=== PATIENT | female | born 1955 | race Caucasian/White ===

== ENCOUNTER → 2018-04-26 12:57 | Outpatient (CLI) | payer BC, SELFPAY | PROVIDERS: Family Provider Family Medicine; PCP Family Medicine; Referring Provider Family Medicine; Visit Provider Family Medicine | DX: I48.0 Paroxysmal atrial fibrillation (principal) | CPT/HCPCS: 93225; 93226 ==

== ENCOUNTER 2018-09-01 10:30 | Outpatient (RCR) | payer SELFPAY ==
[2018-05-18 15:04] VITALS: BMI 45.0
[2018-08-18 08:59] LABS: International Normalized Ratio 2.2; Prothrombin Time (Protime)PT. 24.1 SECONDS (11.7-14.9)
[2018-09-01 11:12] LABS: International Normalized Ratio 1.9; Prothrombin Time (Protime)PT. 21.4 SECONDS (11.7-14.9)
== END 2018-09-01 11:00 | disposition home or self-care (01) ==
LOC: LAB 10:30
PROVIDERS: Family Provider Family Medicine; PCP Family Medicine; Referring Provider Internal Medicine Cardiovascular Disease; Visit Provider Internal Medicine Cardiovascular Disease
DX: I48.0 Paroxysmal atrial fibrillation (principal); Z79.01 Long term (current) use of anticoagulants
CPT/HCPCS: 36415; 85610

== ENCOUNTER 2018-09-14 08:58 | Outpatient (RCR) | payer SELFPAY ==
[2018-05-18 15:04] VITALS: BMI 45.0
[2018-09-14 09:55] LABS: International Normalized Ratio 2.7; Prothrombin Time (Protime)PT. 28.5 SECONDS (11.7-14.9)
== END 2018-09-14 16:27 | disposition home or self-care (01) ==
LOC: LAB 08:58
PROVIDERS: Family Provider Family Medicine; PCP Family Medicine; Referring Provider Internal Medicine Cardiovascular Disease; Visit Provider Internal Medicine Cardiovascular Disease
DX: I48.0 Paroxysmal atrial fibrillation (principal); Z79.01 Long term (current) use of anticoagulants
CPT/HCPCS: 36415; 85610

== ENCOUNTER → 2018-10-06 | Outpatient (CLI) | payer SELFPAY ==
[2018-05-18 15:04] VITALS: BMI 45.0
[2018-10-06 09:37] LABS: International Normalized Ratio 2.6; Prothrombin Time (Protime)PT. 28.2 SECONDS (11.7-14.9)
== END | disposition home or self-care (01) ==
PROVIDERS: Family Provider Family Medicine; PCP Family Medicine; Referring Provider Internal Medicine Cardiovascular Disease; Visit Provider Internal Medicine Cardiovascular Disease
DX: I48.0 Paroxysmal atrial fibrillation (principal); Z79.01 Long term (current) use of anticoagulants
CPT/HCPCS: 36415; 85610

== ENCOUNTER 2018-11-03 09:50 | Outpatient (RCR) | payer MEDICARE, BC, SELFPAY ==
[2018-05-18 15:04] VITALS: BMI 45.0
[2018-11-03 10:19] LABS: International Normalized Ratio 2.6; Prothrombin Time (Protime)PT. 27.5 SECONDS (11.7-14.9)
== END 2018-11-03 13:00 | disposition home or self-care (01) ==
LOC: LAB 09:50
PROVIDERS: Family Provider Family Medicine; PCP Family Medicine; Referring Provider Internal Medicine Cardiovascular Disease; Visit Provider Internal Medicine Cardiovascular Disease
DX: I48.0 Paroxysmal atrial fibrillation (principal); Z79.01 Long term (current) use of anticoagulants
CPT/HCPCS: 36415; 85610

== ENCOUNTER → 2018-11-03 09:55 | Outpatient (CLI) | payer MEDICARE, BC, SELFPAY ==
[2018-05-18 15:04] VITALS: BMI 45.0
--- NOTE | 2018-11-03 10:04 | MRI_ITS ---
STUDY: MRI BRAIN WITH AND WITHOUT CONTRAST REASON FOR EXAM: Female, 62 years old. Follow-up surgery. TECHNIQUE: Standardized multiplanar fat and water weighted pulse sequences were obtained. 25 IV Dotarem was administered for the contrast portion of the examination. COMPARISON: 07/31/2014 FINDINGS: Normal size of the ventricles and extra-axial spaces for the patient's age. Normal white matter tracts of the supratentorial brain. There is no evidence for recent intracranial ischemia or other cause of cytotoxic edema on diffusion weighted imaging (DWI). Normal T2* images of the brain without demonstrated susceptibility artifact. There is no demonstrated hemosiderin stain. No change in a small area of gliosis involving the inferior right frontal lobe at the site of the meningioma resection. Normal bilateral basal ganglia. Normal thalami. There is no extra-axial fluid accumulation. Normal flow voids within the major intracranial circulation suggesting patency by spin echo criteria. Normal venous enhancement. There is no enhancing intra-axial or extra-axial abnormality. Normal sella turcica, pituitary gland, infundibular stalk, optic chiasm and hypothalamus. Normal tectal plate and pineal gland. Normal midbrain, chato and medulla. Normal cerebellum. Normal basal cisterns. Normal bilateral temporal bones. Normal bilateral internal auditory canals. There are bilateral ocular lens implants with otherwise normal intraorbital contents. Normal visualized paranasal sinuses. Normal calvarium and skull base. Normal visualized soft tissue structures. Normal visualized upper cervical spine. MRI/Brain W/WO Contrast IMPRESSION: No change from 07/31/2014. Electronically Signed: Bandar Britton MD at 13:59 EDT Tel , Service support ,
== END ==
PROVIDERS: Family Provider Family Medicine; PCP Family Medicine; Referring Provider Family Medicine; Visit Provider Family Medicine
DX: Z86.018 Personal history of other benign neoplasm (principal); I48.0 Paroxysmal atrial fibrillation; Z79.01 Long term (current) use of anticoagulants
CPT/HCPCS: 36415; 70553; 85610; A9575

== ENCOUNTER → 2018-11-07 | Outpatient (CLI) | payer MEDICARE, BC, SELFPAY ==
[2018-05-18 15:04] VITALS: BMI 45.0
--- NOTE | 2018-11-07 06:55 | ECHOD_ITS ---
Reason For Study: Afib/Flutter Procedure This was a 2D Doppler, Color Flow transthoracic echocardiogram. Exam performed in department. Left Ventricle Normal LV size. Left ventricular systolic function is normal. The estimated ejection fraction is 55 %. Stage 1 diastolic dysfunction. No regional wall motion abnormalities noted. Right Ventricle Normal RV size. Normal systolic function. Atria The left atrium is mildly enlarged. Normal right atrium. Mitral Valve Normal mitral valve. Tricuspid Valve Normal tricuspid valve. Trivial tricuspid valve insufficiency. Aortic Valve Normal aortic valve. Pulmonic Valve Normal pulmonic valve. Great Vessels Normal aortic root. Pericardium/Pleural No pericardial effusion. MMode/2D Measurements & Calculations LVIDd: 5.2 cm IVSd: 1.1 cm LA dimension: 4.1 cm LVIDs: 3.5 cm LVPWd: 1.2 cm FS: 33.8 % LAV(MOD-bp): 70.5 ml LA A4 area: 24.3 cm2 RA A4 area: 16.9 cm2 LAV(MOD-bp) Indexed: 30.6 ml/m2 LAV(MOD-sp2): 65.1 ml LAV(MOD-sp4): 75.1 ml Time Measurements MV dec time: 0.25 sec Doppler Measurements & Calculations MV E max lobito: 72.5 cm/sec Lat Peak E' Lobito: 9.2 cm/sec Med Peak E' Lobito: 10.9 cm/sec MV A max lobito: 91.3 cm/sec E/E' lat: 7.9 E/E' med: 6.6 MV E/A: 0.79 MV V2 max: 89.6 cm/sec MV P1/2t max lobito: 89.6 cm/sec Ao V2 max: 112.7 cm/sec MV max P.2 mmHg MV P1/2t: 85.3 msec Ao max P.1 mmHg MV V2 mean: 51.9 cm/sec MV dec slope: 307.4 cm/sec2 MV mean P.2 mmHg MVA(P1/2t): 2.6 cm2 MV V2 VTI: 32.3 cm LV V1 max: 107.2 cm/sec PA V2 max: 83.8 cm/sec LV V1 max P.6 mmHg Interpretation Summary Normal LV size. Left ventricular systolic function is normal. The estimated ejection fraction is 55 %. Stage 1 diastolic dysfunction. Ordering Physician: Otf Moore Referring Physician: Otf Moore Performed By: Sal Ruth RCS
--- NOTE | 2018-11-07 13:03 | STRESSREP ---
Stress Test Report Pharmacologic myocardial perfusion stress test. 62-year-old lady with a history of paroxysmal atrial fibrillation. Resting EKG demonstrates sinus bradycardia with a rate of 50 bpm normal intervals are noted resting blood pressures 122/70 mmHg. 0.4 mg of regadenoson was infused per usual protocol followed by rapid intravenous saline flush injection continuous EKG monitoring was performed. Patient maintained sinus rhythm throughout the recording the maximum heart rate was 82 bpm which was 52% of maximum predicted heart rate and maximum workload was 1 metabolic equivalent. At rest there were no ST or T wave changes noted suggest abnormal flow reserve at peak infusion nonspecific ST-T wave changes were noted. No clinical angina was noted. Myocardial perfusion protocol. 14.6 mCi of technetium 99m sestamibi was injected at rest. 0.4 mg of regadenoson was infused per usual protocol peak infusion 44.6 mCi of technetium 99m sestamibi was injected stress images were obtained stress and rest images are reconstructed and compared in the short axis vertical long horizontal long axis. Gated images were also obtained per Perfusion SPECT analysis: Review of the images demonstrate reduced perfusion noted in the anterior wall. This is present on the stress and resting images to a similar extent in anterior breast wall attenuation cannot be completely excluded. No obvious ischemia is noted there is thickening of all hanson noted. Gated SPECT analysis: The gated ejection fraction is noted to be 73%. Conclusion: Pharmacologic myocardial perfusion stress test with anterior breast wall attenuation likely. Preserved ejection fraction No atrial fibrillation noted.
== END | disposition home or self-care (01) ==
LOC: CVS 06:54
PROVIDERS: Family Provider Family Medicine; PCP Family Medicine; Referring Provider Internal Medicine Cardiovascular Disease; Visit Provider Internal Medicine Cardiovascular Disease
DX: R06.02 Shortness of breath (principal); I48.0 Paroxysmal atrial fibrillation
CPT/HCPCS: 78452; 93017; 93306; A9500; A4216; J2785

== ENCOUNTER → 2019-10-09 13:53 | Outpatient (CLI) | payer MEDICARE, BC, SELFPAY ==
[2019-05-23 10:02] VITALS: BMI 45.8
== END ==
PROVIDERS: PCP Family Medicine; Referring Provider Nurse Practitioner Family; Visit Provider Nurse Practitioner Family
DX: I48.0 Paroxysmal atrial fibrillation (principal)
CPT/HCPCS: 93225; 93226

== ENCOUNTER 2020-01-30 06:51 | Day surgery (SDC) | payer MEDICARE, BC, SELFPAY ==
[2019-05-23 10:02] VITALS: BMI 45.8
--- NOTE | 2020-01-26 08:36 | RAD_ITS ---
STUDY: X-RAY CHEST REASON FOR EXAM: Female, 64 years old. DYSPNEA HX OF VTACH, AFIB, HTN, HLD. PATIENT IS HAVING A HEART CATH. TECHNIQUE: PA and lateral views of the chest. COMPARISON: None. FINDINGS: The lungs are clear and expanded. There is no demonstrated pleural abnormality. There is mild cardiac enlargement. Normal mediastinum and lonny. Normal visualized pulmonary arteries. There is atherosclerotic tortuosity of the aortic arch and descending thoracic aorta. There are diffuse degenerative changes of the visualized thoracic spine. Normal visualized ribs, clavicles, and shoulders. There is no demonstrated abnormality of the visualized soft tissue structures of the upper abdomen. RAD/Chest PA and Lateral IMPRESSION: No acute abnormality is seen. Mild cardiomegaly. Electronically Signed: Wilfrido Duong, at 13:48 EST , Service support ,
[2020-01-26 09:08] LABS: Absolute Lymphocyte Count 1.61 X10^3/uL (0.83-4.51); Absolute Neutrophil Count 2.4 X10^3/uL (2.0-7.7); Basophil# 0.01 X10^3/uL; Basophil% 0.2 % (0-1); Eosinophil# 0.13 X10^3/uL; Eosinophils% 2.9 % (0-5); Hematocrit 43.9 % (37-47); Lymphocyte # 1.61 X10^3/ul (4.0); Lymphocyte % 36.1 % (19-41); Mean Corp Hgb Conc 31.9 g/dL (32-36); Mean Corpuscular Hgb 28.4 pg (27.0-32.0); Mean Platelet Vol. 9.4 fl (6.2-12.0); Monocyte# 0.23 X10^3/uL; Monocyte% 5.2 % (0-10); NRBC Flagged by Analyzer 0 % (0-5); Neutrophil # 2.44 X10^3/uL (2.7-7.7); Neutrophil % 54.7 % (47-70); Platelet Count 141 K/mm3 (150-450); RBC Distribution Width CV 16.3 % (11.6-14.6); RBC Distribution Width SD 53.1 fl (35.1-43.9); Red Blood Count 4.93 M/mm3 (4.2-5.4); White Blood Count 4.5 K/mm3 (4.4-11.0)
[2020-01-26 09:23] LABS: International Normalized Ratio 1.9
[2020-01-26 09:59] LABS: Anion Gap 3 (5-15); BUN 22 mg/dL (7-18); BUN/Creat Ratio 19.5 RATIO (10-20); Calcium,Total 9.2 mg/dL (8.5-10.1); Chloride 113 mmol/L (98-107); Creatinine, Serum 1.13 mg/dL (0.55-1.02); EST Glomerular Filtration Rate 51 mL/min (>60); Est Glom Filt Rate - Afr Amer 62 mL/min (>60); Glucose 93 mg/dL (74-106); Potassium 3.9 mmol/L (3.5-5.1); Sodium Level 143 mmol/L (136-145)
[2020-01-29 09:06] VITALS: BMI 45.8
--- NOTE | 2020-01-30 08:23 | CL.D_ITS ---
Patient Name: LOVE LLANOS Study Date: 01/30/2020 Performing: Otf Moore MD Ht: 66.14 inches 168 cm : 1955 Wt: 284.4 lbs 129 kg Age: 64 Gender: female BSA: 2.33 PROCEDURE(S) PERFORMED [id number]/COR/LV CLINICAL PROFILE AND INDICATIONS Indications: Cardiac Arrythmia Heart Failure: None Stress/Imaging Stress/Image Study Performed: No CAD Presentations: No Sxs, no angina. CONCLUSIONS Normal coronary arteries Normal LV size, wall motion,and systolic function RECOMMENDATIONS Medical therapy DESCRIPTION OF PROCEDURE The patient arrived to the procedure lab. The risks and benefits of the procedure as well as a full d escription of our services here and current unavailability of surgical backup were fully explained to the patient and/or their significant other prior to the catheterization. The Timeout was completed, verifying the correct patient and procedure. The patient's procedural site was prepped and draped in the usual fashion. Local anesthetic was given subcutaneously to right radial region with Lidocaine 2% . Using a modified Seldinger technique, arterial access was obtained via the right radial artery, a 6 Fr sheath was inserted. Right Coronary Artery selective angiography was then performed in multiple v iews using a 5 Fr. 4.0 [place] catheter. Left Coronary Artery selective angiography was performed in mu ltiple views using a 5 Fr. 4.0 [place] catheter. Left Ventriculography was performed in [place] projection using a 5 Fr. [place] catheter. LV to AO pullback pressures were then recorded.The arterial sheath was pulled and a TR Band was applied for hemostasis CORONARY ANGIOGRAPHY DOMINANCE: Right Dominant LEFT HEART ASSESSMENT Left Ventricular Ejection Fraction: by LV Gram 60 % Normal Left Ventricular systolic function Normal Left Ventricular systolic function LEFT MAIN: Angiographically normal LEFT ANTERIOR DESCENDING ARTERY: Angiographically normal CIRCUMFLEX ARTERY: Angiographically normal RIGHT CORONARY ARTERY: Angiographically normal COMPLICATIONS No Complications PROCEDURE MEDICATIONS Fentanyl 50 mcg IV Versed 1 mg IV Oxygen: 2 L/min via nasal cannula SUMMARY OF HEMODYNAMIC DATA Time AIR REST ECG 07:17:06 AO 125/75 (95) SA 08:09:00 LV 119/1, 7 08:15:00 LV 110/4, 0 08:15:06 LV 107/4, 12 08:15:48 LVp 110/6, 12 08:15:53 AOp 114/61 (82) 08:15:58 Signed By Otf Moore MD On 01/30/2020 08:22:13 Otf Moore MD
--- NOTE | 2020-02-01 15:17 | HP.PCM_ITS ---
History and Physical Date of Admission: 01/30/20 This is a 64-year-old female that presents here today for a diagnostic heart catheterization. Patient had called her office in November 2019 with concerns over irregular heartbeats. She did have a 30-day event monitor. 30-day event monitor did have evidence of an arrhythmia consistent with ventricular tachycardia versus atrial fibrillation with aberrancy. Because of this it was recommended that she undergo a heart catheterization because she had a stress test in 2018 that was negative for ischemia. Allergies No Known Allergies Allergy (Verified 05/23/19 10:02) Medications See chart [facility] Medical History Paroxysmal atrial fibrillation (Chronic) Hyperlipidemia (Chronic) Essential (primary) hypertension (Chronic) Obesity (Chronic) Obstructive sleep apnea (Chronic) Breast cancer (Resolved 1999) Colon polyp (Resolved) Meningeal tumor (Resolved) Surgical History H/O colonoscopy with polypectomy (Resolved) H/O excision of tumor of brain meninges (Resolved 2013) Family History Father Cancer lymphoma Mother Colon cancer Sister Cancer endometrial Social History (Updated 05/23/19 @ 10:[address] Otf Moore MD) Smoking Status: Former smoker quit date: 03/15/93 pack-years: 14 caffeine: Yes Type: coffee Number of servings: 3 ROS Const Const: Negative for fatigue, weakness, headache(s), frequent falls, night sweats, daytime sleepiness or excessive sweating Eyes Eyes: Negative for blind spots, loss of peripheral vision, transient loss of vision, blurry vision or double vision ENT ENT: Negative for headache(s), dizziness, Nosebleed/epistaxis, balance problems, lip swelling or tongue swelling Cardio Chest Pain: No Palpitations: No Edema: None Muscle aches with walking: None Resp Respiratory: Negative for SOB with activity, SOB at rest, SOB orthopnea\SOB lying down, Cough or paroxysmal nocturnal dyspnea GI GI: Negative nausea, vomiting, heartburn, bright, red blood in stools or black,tarry stools : Negative for hematuria Musc Musc: Negative for muscle aches/ myalgia, muscle weakness, joint pain or balance problems Skin Skin: Negative non-healing lesions, rash or unusual bruising Neuro Neuro: Negative for dizziness, lightheadedness, orthostatic symptoms, frequent falls, headache(s), weakness, blurry vision, double vision or lack of coordination [place] Hematologic/Lymphatic: Negative for easy bleeding or easy bruising Endo Endo: Negative for fatigue, cold intolerance, heat intolerance, excessive sweating, increased thirst/drinking or hair loss Psych Psych: Negative for anxiety or depression Allergy Allergy/Immunology: Negative for throat swelling, Negative for tongue swelling, Negative for hives, Negative for rash, Negative for lip swelling Cardiology Exam Const Appearance: cooperative, healthy appearing, no acute distress, well developed and well groomed Nutritional Appearance: average body habitus and well nourished Orientation: alert, awake and oriented x3 Head Head: normal to inspection, normocephalic and atraumatic Ears: hearing grossly normal bilaterally and external ears normal Nose: external nose normal, nares normal, nasal mucous membranes and turbinates normal, septum normal, no nasal discharge Face and Sinus: face symmetric Mouth: oral mucosae normal, tongue normal, oropharynx normal and moist mucous membranes Teeth and gingiva: dentition normal Throat: posterior oropharynx normal, tonsils normal and uvula midline Eyes General: appearance normal, both eyes and all related structures Eyelids: eyelids normal Conjunctivae: conjunctivae normal Pupils: PERRL, normal by confrontation and accommodation normal EOM: EOM intact bilaterally Neck Neck: normal visual inspection, trachea midline and no JVD JVD: +5 Carotids: normal carotid upstroke and bounding pulses Chest Chest inspection: normal inspection of the chest, symmetric chest movement and normal respiratory effort Auscultation: Bilateral: Clear to Auscultation Cardio Palpation: normal PMI Rate: regular rate Rhythm: regular rhythm Heart sounds: S1 normal, S2 normal and normal, physiologic split S2; negative rub, gallop or murmur GI GI: normal to inspection, soft, no hepatosplenomegaly and bowel sounds present Neuro General: alert, awake, oriented x3, gait normal, moves all extremities and no focal sensory deficit Skin Skin: no rashes or lesions noted Extremities Pulses: Normal: Right Femoral Pulse, Left Femoral Pulse, Right Dorsalis Pedis Pulse, Left Dorsalis Pedis Pulse, Right Posterior Tibial Pulse, Left Posterior Tibial Pulse, Right Radial Pulse, Left Radial Pulse Lower Extremity Edema: None: Bilateral Musculoskel Musculoskeletal: No joint tenderness Psych Psychological: normal affect Assessment plan: 1. Paroxysmal atrial fibrillation 2. Ventricular tachycardia 3. Hypertension Patient is here today to undergo a diagnostic heart catheterization for ventricular tachycardia that was noted on her 30-day event monitor. Follow-up and plan of care will be based upon findings. She is agreeable to proceed. Procedure Criteria Procedure Type: Elective COVID Risk Discussion: The surgeon/proceduralist and patient have discussed in detail the risk of exposure to and/or potential harm posed by the COVID-19 virus with having a surgery/procedure at this time versus the risk of delaying the surgery/procedure. It is not possible to know either the risk of delaying the surgery or procedure or chance of getting an infection with perfect accuracy, but a joint decision was made between the patient and the surgeon/proceduralist to proceed at this time with the scheduled surgery/procedure as indicated on the consent form.
== END 2020-01-30 10:10 | disposition home or self-care (01) ==
LOC: CLSP 06:52
PROVIDERS: PCP Family Medicine; Referring Provider Internal Medicine Cardiovascular Disease; Visit Provider Internal Medicine Cardiovascular Disease
DX: I48.0 Paroxysmal atrial fibrillation (principal); I10 Essential (primary) hypertension; I47.2 Ventricular tachycardia; E78.5 Hyperlipidemia, unspecified; G47.33 Obstructive sleep apnea (adult) (pediatric); E66.9 Obesity, unspecified; Z68.42 Body mass index [BMI] 45.0-49.9, adult; Z79.899 Other long term (current) drug therapy; Z79.01 Long term (current) use of anticoagulants; Z79.82 Long term (current) use of aspirin; Z87.891 Personal history of nicotine dependence
CPT/HCPCS: 36415; 36416; 71046; 80048; 85025; 85610; 93458; 99152; 99153; J7040; C1769; C1894; Q9967

== ENCOUNTER 2021-06-16 12:59 | Outpatient (CLI) | payer MEDICARE, BC, SELFPAY ==
--- NOTE | 2021-06-16 13:04 | ECHOD_ITS ---
Reason For Study: DYSPNEA/SOB Procedure This was a 2D Doppler, Color Flow transthoracic echocardiogram. Exam performed in department. Left Ventricle Normal LV size. Left ventricular systolic function is normal. The estimated ejection fraction is 60 %. No regional wall motion abnormalities noted. Right Ventricle Normal RV size. Normal systolic function. Atria Normal left atrium. Normal right atrium. Mitral Valve Normal mitral valve. Tricuspid Valve Normal tricuspid valve. Aortic Valve Normal aortic valve. Pulmonic Valve Normal pulmonic valve. Great Vessels Normal aortic root. The pulmonary artery is normal size. Normal inferior vena cava. Pericardium/Pleural No pericardial effusion. MMode/2D Measurements & Calculations LVIDd: 4.8 cm IVSd: 0.98 cm Ao root diam: 3.3 cm LVIDs: 3.3 cm LVPWd: 1.0 cm RVDd: 3.4 cm FS: 31.8 % LAV(MOD-bp): 55.0 ml LVAd ap4: 36.2 cm2 SV(MOD-sp4): 85.9 ml LAV(MOD-bp) Indexed: 24.3 ml/m2 LVLd ap4: 8.1 cm LAV(MOD-sp2): 54.9 ml EDV(MOD-sp4): 133.6 ml LAV(MOD-sp4): 56.8 ml EDV(sp4-el): 138.2 ml LVAs ap4: 19.2 cm2 LVLs ap4: 6.6 cm ESV(MOD-sp4): 47.7 ml ESV(sp4-el): 47.4 ml EF(MOD-sp4): 64.3 % EF(sp4-el): 65.7 % SV(sp4-el): 90.7 ml LA A4 area: 19.6 cm2 LA dimension(2D): 4.3 cm RA A4 area: 18.3 cm2 Time Measurements MV dec time: 0.20 sec Doppler Measurements & Calculations MV E max lobito: 83.0 cm/sec Lat Peak E' Lobito: 10.8 cm/sec Med Peak E' Lobito: 10.7 cm/sec MV A max lobito: 79.0 cm/sec E/E' lat: 7.7 E/E' med: 7.8 MV E/A: 1.1 Ao V2 max: 132.7 cm/sec LV V1 max: 112.8 cm/sec PA V2 max: 88.6 cm/sec Ao max P.0 mmHg LV V1 max P.1 mmHg ECHO/Echo Complete Interpretation Summary Normal LV size. Left ventricular systolic function is normal. The estimated ejection fraction is 60 %. Structurally normal valves. Ordering Physician: Ajay Stone/Otf Oscar Referring Physician: MAURI GONZALEZ Performed By: Shanae Bejarano RDCS
[2021-06-16 14:25] LABS: Anion Gap 2 (5-15); BUN 17 mg/dL (7-18); BUN/Creat Ratio 16.7 RATIO (10-20); Chloride 109 mmol/L (98-107); Creatinine, Serum 1.02 mg/dL (0.55-1.02); EST Glomerular Filtration Rate 57 mL/min (>60); Est Glom Filt Rate - Afr Amer 69 mL/min (>60); Glucose 85 mg/dL (74-106); Potassium 3.9 mmol/L (3.5-5.1); Sodium Level 142 mmol/L (136-145)
[2021-06-16 14:27] LABS: BNP,B-Type NATRIURETIC PEPTIDE 109.8 pg/mL (0-100)
== END 2021-06-16 23:59 | disposition home or self-care (01) ==
PROVIDERS: PCP Family Medicine; Referring Provider Nurse Practitioner Family; Visit Provider Nurse Practitioner Family
DX: Z01.818 Encounter for other preprocedural examination (principal); I48.0 Paroxysmal atrial fibrillation; R06.00 Dyspnea, unspecified; I10 Essential (primary) hypertension; E78.5 Hyperlipidemia, unspecified; Z79.01 Long term (current) use of anticoagulants
CPT/HCPCS: 36415; 80048; 83880; 93306

== ENCOUNTER → 2021-08-18 | Outpatient (CLI) | payer MEDICARE, BC, SELFPAY | END | disposition home or self-care (01) | LOC: PSN 08:23 | PROVIDERS: PCP Family Medicine; Referring Provider Internal Medicine Cardiovascular Disease; Visit Provider Internal Medicine Cardiovascular Disease | DX: I48.0 Paroxysmal atrial fibrillation (principal) | CPT/HCPCS: 93225; 93226 ==

== ENCOUNTER 2021-09-17 05:30 | Day surgery (SDC) | payer MEDICARE, BC, SELFPAY ==
[2021-09-13 10:21] LABS: Hematocrit 41.7 % (37-47); Hemoglobin 13.2 g/dL (12.0-15.0); Mean Corp Hgb Conc 31.7 g/dL (32-36); Mean Corpuscular Hgb 27.7 pg (27.0-32.0); Mean Corpuscular Volume 87.6 fL (81-99); Mean Platelet Vol. 9.1 fl (6.2-12.0); POSITIVE COUNT YES; Platelet Count 96 K/mm3 (150-450); RBC Distribution Width CV 17.4 % (11.6-14.6); RBC Distribution Width SD 55.2 fl (35.1-43.9); Red Blood Count 4.76 M/mm3 (4.2-5.4); White Blood Count 3.3 K/mm3 (4.4-11.0)
[2021-09-13 10:26] LABS: Scan Indicated on CBC? Y/N YES- FLAGS NOTED
[2021-09-13 10:42] LABS: Anion Gap 3 (5-15); BUN 12 mg/dL (7-18); BUN/Creat Ratio 11.9 RATIO (10-20); Calcium,Total 8.8 mg/dL (8.5-10.1); Chloride 111 mmol/L (98-107); Creatinine, Serum 1.01 mg/dL (0.55-1.02); EST Glomerular Filtration Rate 58 mL/min (>60); Est Glom Filt Rate - Afr Amer 70 mL/min (>60); Glucose 87 mg/dL (74-106); Sodium Level 139 mmol/L (136-145)
[2021-09-13 11:29] LABS: Differential Comment SCANNED
[2021-09-17] VITALS (8 sets, daily range): BP systolic 110–153; BP diastolic 60–85; PULSE 50–94; RESP 16; TEMP 36.1–37; O2SAT 90–97; BMI 43.4
--- NOTE | 2021-09-17 05:53 | HP.PCM_ITS ---
History and Physical Date of Admission: 09/17/21 Intake Visit Reasons:?UPDATE H & P Chief Complaint: update H&P for Hernia repair 09/17/21 Night Shift Manager Required: No Is patient in pain?: No Allergies No Known Allergies Allergy (Verified 09/02/21 14:16) Medications pravastatin 40 mg tablet 40 mg PO QHS 90 days #90 tabs 05/16/18 [History Confirmed 09/02/21] allopurinol 100 mg tablet 100 mg PO DAILY 01/26/20 [History Confirmed 09/02/21] lisinopril 30 mg tablet 30 mg PO DAILY 01/26/20 [History Confirmed 09/02/21] cholecalciferol (vitamin D3) 50 mcg (2,000 unit) tablet 50 mcg PO DAILY 05/23/21 [History Confirmed 09/02/21] loratadine 10 mg tablet (Allergy Relief (loratadine)) 10 mg PO DAILY PRN 05/23/21 [History Confirmed 09/02/21] warfarin 4 mg tablet (Coumadin) See Rx Instructions PO DAILY 05/23/21 [History Confirmed 09/02/21] flecainide 100 mg tablet 100 mg PO Q12H #180 tabs 08/08/21 [Rx Confirmed 09/02/21] metoprolol succinate 25 mg tablet,extended release 24 hr 25 mg PO BID #180 tabs 08/25/21 [Rx Confirmed 09/02/21] Is last menstrual period known: No Post menopausal: Yes Patient : No PFSH Medical History? Breast cancer (1999) Colon polyp Essential (primary) hypertension Hyperlipidemia Meningeal tumor Obesity Obstructive sleep apnea Paroxysmal atrial fibrillation Recurrent ventral hernia Recurrent ventral incisional hernia Sepsis (03/2020) Ventricular tachycardia (01/2020) Surgical History? H/O colonoscopy with polypectomy H/O excision of tumor of brain meninges (2013) History of appendectomy (03/2020) History of herniorrhaphy (03/2020) History of left heart catheterization (01/30/20) Incisional hernia Family History? Father?? Cancer ?? ? lymphoma, prostate Hypertension High cholesterolMother Colon cancer High cholesterol Hypertension OsteoporosisSister?? Cancer ?? ? endometrial, lung Social History? Smoking Status:? Former smoker quit date: 03/15/93 pack-years: 14 alcohol intake:? never substance use type:? does not use caffeine:? Yes Type: coffee Number of servings: 3 HPI HPI HPI: LOVE LLANOS, is a 65 F who presents to the office today for an update history and physical for upcoming recurrent hernia repair. Patient denies any recent hospitalizations or illnesses since her last visit. She has been worked up by cardiology for A fib. She is currently on Coumadin. She has been cleared by cardiology for surgery. She denies any chest pain, shortness of breath. She notes history of sleep apnea. She has a CPAP machine at home. She notes some disruption of bowel movements, however for the most part she notes normal bowel habits. She denies any increase in pain at the hernia site. Patient's previous history per Dr. Matson: LOVE LLANOS, is a 65 F who presents to the office today for surgical consultation regarding a recurrent ventral incisional hernia.? The patient is referred by Dr. Jairo Romero and a written copy of my surgical consult recommendations will ret urn to him. The patient states that July 2019 at [facility] she had a laparoscopic-assisted hysterectomy for premalignancy.? I do not have details of that it procedure.? However an incision was made fully in the epigastric area of her abdomen.? She had herniated.? Then March 2020 she had appendicitis and was treated by Dr. Mcfadden in [facility].? Apparently she was hospitalized for 2 days preop while waiting for her Coumadin levels to normalize.? Apparently the epigastric incision was lengthened vertically and a suture repair was done at the same time of the appendectomy.? The patient now has noted progressive enlargement of that area and firmness.? She notes a change of bowel habits occasionally missing a day during the week.? It is of note that Dr. Granda has assisted her with a colonoscopy as recently as May 2021. Moreover the patient states that she has not recovered from her most recent surgery.? She states that she frequently goes into atrial fibrillation after surgery and that is why she would like to have it done locally as her cup setter lockstitch Dr. Otf Moore is locally.? She states that she had some recent medication changes.? Apparently at her most recent intervention there was concern that she would require cardioversion.? In addition she seems to have more dyspnea on exertion.? She does some walking but now avoids her walks that required going uphill.? She does not recall a stress test in the recent past its been multiple years. Body habitus noted for a weight of 269 pounds with a BMI of 43.4. After the patient had her hysterectomy she did have Covid-19.? Subsequent to recover she did not seek vaccination.? She is concerned about her heart disease and obtaining the vaccination versus the vaccination providing her protection because she does have heart disease. ?I now have information from [employer] operation July 28, 2019.? Robotic technique was utilized.? No tumor was identified at the time of surgery.? I do not see that an omentectomy was performed.? Specimens submitted included uterus tubes and ovary.? Findings included multiple leiomyomas.? No malignancy. Then referring to her more recent surgery that was performed by Dr. Radha Mcfadden in [facility] April 02, 2020 suggested a 4 cm supraumbilical incisional hernia with acute gangrenous appendicitis.? Unassigned catheter was placed.? The appendiceal stump was healthy.? Appendicolith was identified.? Incisional hernia was closed with 0 PDS. ? ROS General General: No weight change, appetite, fatigue, colon cancer, breast cancer or weakness HEENT HEENT: No difficulty swallowing, eye injury, eye surgery, swollen glands or hoarseness Endo Endocrine: No thyroid disease, diabetes mellitus, thyroid cancer, Hair loss, heat intolerance or cold intolerance Skin Skin: No rash or changing moles Musc Musculoskeletal: Yes back problems and gout; No arthritis, rheumatoid arthritis or joint pain Cardio Cardiovascular: Yes atrial fibrillation and high blood pressure; No murmur, pacemaker, heart disease, heart attack, heart stent, palpitations, shortness of breat with exertion or chest pain Psych Psychiatric: No depression, anxiety or hearing voices Resp Respiratory: No shortness of breath, Yes sleep apnea, No cough, No COPD, No asthma, No emphysema and No wheezing Gastro Gastrointestinal: No abdominal pain, No nausea or vomiting, Yes diarrhea, Yes constipation, No blood in stool, No acid reflux, No hemorrhoids, No ulcers, No gallbladder problem and No black,tarry stools [place] Hematologic: Yes blood thinners, No blood disorders, No bleeding, No anemia and No blood clots Neuro Neurologic: No system reviewed and no additional complaints, except as documented, No as per HPI, No abnormal gait, No abnormal hearing, No abnormal movements, No abnormal speech, No behavioral changes, No burning sensations, No confusion, No convulsions, No disequilibrium, No dizziness, No localized weakness, No frequent falls, No headache(s), No lack of coordination, No loss of vision, No memory loss, No numbness, No other visual disturbances, No radicular pain, No restless legs, No sensory deficit, No syncope, No tingling, No tremor(s), No weakness and No other Exam Const General: cooperative, healthy appearing, comfortable and no acute distress HENDC Head: normal to inspection Eyes General: appearance normal, both eyes and all related structures Neck Neck: normal visual inspection Neck mass: No Resp Effort & Inspection: normal respiratory effort and able to speak in complete sentences Auscultation: clear to auscultation bilaterally Cardio Rate: regular rate Rhythm: regular rhythm GI Palpation: hernia ventral (incisional, recurrent) Musc Cervical Spine: normal cervical lordosis Skin General: no rashes or lesions noted Other: Previous incision mid-abdomen Neuro General: no focal motor deficits and CN's II-XI intact bilaterally Extrem General: normal to inspection Psych Appearance: grossly normal Affect: normal affect Assessment and Plan Assessment and Plan (1) Recurrent ventral hernia: ?Status:?Acute ?Plan: Dr. Matson will plan to perform a laparoscopic possible hand assist possible conversion to open ventral incisional hernia repair with mesh. Transversus abdominis block would be performed. Procedure details, risks and benefits have been reviewed. Patient will hold her Coumadin for 5 days per cardiology. Patient will be an over night stay. Patient has had the opportunity to ask and have questions answered. Patient verbally understands and agrees with the plan. I have re-examined the patient. There are no clinical changes since date of exam. Rigo Matson M.D., F.A.C.S.
[2021-09-17] MEDS: Lactated Ringers 1,000 ML 15 ML IV ×2 (05:55→10:08)
[2021-09-17 05:56] LABS: INR Fingerstick 1.1; Prothrombin Time Fingerstick 13.4 SEC (11.7-14.9)
[2021-09-17] MEDS: Bupivacaine Mpf 0.5% 30 ML VIAL (07:14)
[2021-09-17] MEDS: BUPIVACAINE LIPOSOME/PF 20 ML VIAL OPERA.SITE (07:14)
--- NOTE | 2021-09-17 07:14 | DCINST_ITS ---
Discharge Instructions Procedure General Surgery Diet Discharge Diet: Light diet - advance as tolerated (if you have questions about your diet instructions, please talk to you doctor.) Activity Discharge Activity: May Not Drive (for 3-5 days or while taking narcotic pain medicine.) May shower in (days): 1 Lifting Restrictions: 10 pounds Dressing / Incision Call your doctor if your incision/area has: Continuous Slow Oozing, Sudden Increased Bleeding, Increased Pain/ Swelling, Increased Redness and Foul Smelling Discharge Call your doctor if you observe: Fever of 101 or Higher Suture Line Care: Avoid Pulling/Pushing and Avoid Pinching/Bending Additional Dressing/Incision Instructions:: Change or remove dressing in 4 days. Leave steri-strips in place for 1 week. Follow Up Care Please Follow Up With: Rigo Maston MD When: Call [phone] to make an appointment to be seen in about 10 days. Test Results: Test results from this visit will be discussed in further detail at your follow- up appointment, if applicable. Discharge Plan Admission Primary Reason for Your Visit: Recurrent ventral incisional hernia Attending Provider: Rigo Matson Primary Care Provider: Jairo Romero Consulting Providers: John Zavaleta Discharge Orders/Prescriptions Prescriptions: New hydrocodone-acetaminophen 5-325 mg Tablet 1 - 2 tab PO Q4H PRN PRN (Reason: Pain Score 1-10/10) 3 Days Qty: 10 0RF Continued pravastatin 40 mg tablet 40 mg PO QHS 90 Days Qty: 90 loratadine [Allergy Relief (loratadine)] 10 mg tablet 10 mg PO DAILY PRN (Reason: Allergies) cholecalciferol (vitamin D3) 50 mcg (2,000 unit) tablet 50 mcg PO DAILY flecainide 100 mg tablet 100 mg PO Q12H Qty: 180 3RF allopurinol 100 mg tablet 100 mg PO DAILY lisinopril 30 mg tablet 30 mg PO DAILY metoprolol succinate 25 mg tablet extended release 24 hr 25 mg PO BID Qty: 180 3RF Held warfarin [Coumadin] 4 mg tablet See Rx Instructions PO DAILY Hold Instructions: Resume on 09/19/21. Protocol: Dose Management Protocol Text: Patient Instructed to take: warfarin 4 mg (2 Tabs) on [place], [place], , [place], SA warfarin 4 mg (1 Tab) on [place], FR Rx Instructions: Take two tablets by mouth 5 days a week, take one tablet 2 days a week Managed by Dr. Romero. Referrals / Follow Up: Jairo Romero MD [Primary Care Provider] - Disposition Disposition (needs filled in before D/C Order can be placed): Home, Self Care
--- NOTE | 2021-09-17 09:35 | PCM.OPRPT ---
Problems Associated Problem List Diagnoses (1) Recurrent ventral hernia: Report of Operation Date of Procedure: 09/17/21 Pre-Operative Diagnosis: Current epigastric ventral incisional hernia Post-Operative Diagnosis: Same Surgery/Procedure Performed:: Laparoscopic ventral incisional herniorrhaphy. Bilateral transverses abdominis plane block.. This utilized is a solution of Exparel diluted with 0.5% Marcaine and injectable saline total total of [address] mesh 20.3 x 25.4 cm. Reference #[id number]. Lot number [id number], expiry date 02/09/2023 Description of Surgical Findings:: Timeout informed consent was obtained. 65-year-old female was taken to the operating room. She was placed upon the table. She underwent general endotracheal intubation and anesthesia. Ancef 3 g were given intravenously intraoperatively based upon body habitus. The abdomen sterilely prepped and draped. Ioban draping was used in addition with chlorhexidine. In the mid to slightly mid inferior epigastric area vertical incision was made directly over the previous robotic incision. A fixed fascial defect measuring approximately 5 cm in diameter was encountered with a very fixed ring. There was some adhesions of omentum to the peritoneal lining and I was able to dissect that free. Then I used a 0 Vicryl to pursestring the peritoneum and I put in a son catheter in. Put 2 5 mm ports in both the right lateral abdomen and left lateral abdomen. I then under laparoscopic physician performed a bilateral transabdominal plane block. I did this utilizing 20 cc of Exparel diluted with 30 cc of 0.5% Marcaine and saline to make 110 cc. Using a 25-gauge needle and laparoscopic excision bilateral subcostally and in the lateral abdomen was injected the fluid into the transversus abdominis plane. Having achieved that now to attention to the fascial defect. I did not feel that based upon this patient's body habitus that completely excising the sac size and the ring and bringing the fascia together would be of any benefit to secondary to the amount of tension that would be on that repair. I elected to proceed with my laparoscopic ventral hernia repair assuring that the mesh selected provided adequate coverage bilaterally. I felt that the billowing affected could be kept to a minimum. I put 4 corner sutures in the Ventralex ST mesh and inserted it through the epigastric port site unfurled it was wetted this the nonadherent surface used a grainy needle to parachute the mesh to the anterior abdominal wall secured those knots in place. It is of note that I got very nice positioning of the mesh so that the defect in her abdominal wall was centrally placed within the mesh and covered generously on all sides. I then used secure strap at 1 cm intervals completely around the periphery. I additionally placed additional circular straps to eliminate space of the mesh and help discourage seromas and to help encourage ingrowth to limit the billowing of fat. This mesh had a very nice flat lie. We even partially deflated the abdomen to assure that positioning was correct. Very pleased with the positioning. Again wetted the mesh. Made sure that the greater omentum was overlying the small bowel. Trochars were removed. The supraumbilical site at placement of the mesh approximated that peritoneum and hypertrophic sac with a running 0 Vicryl. Placed several interrupted 4-0 Monocryl's to approximate the subcutaneous tissues and then a running subdermal 4-0 Monocryl for the skin. A total of 4 other 5 mm port sites were closed with interrupted 4 Monocryl subdermal stitches. Sponge and instrument and needle counts were reported to the surgeon to be correct. Blood loss minimal. Specimens none. Drains none. The patient was taken the recovery room in satisfactory addition Dr. Danielle Beltran. Theresa Matson., F.A.C.S. Surgeon: Rigo Matson Type of Anesthesia: General and Local Anesthesiologist: Jenny Medel
[2021-09-17] MEDS: HYDROcodone Bitartrate/Apap 5/325 Tablet PO (12:02)
--- NOTE | 2021-09-17 12:34 | SUR.PHASEII ---
PER TELEPHONE ORDER PT OK TO DISCHARGE HOME.
== END 2021-09-17 12:52 | disposition home or self-care (01) ==
LOC: SDC 05:31 → AC 05:31
PROVIDERS: Anesthesiology; PCP Family Medicine; Referring Provider Surgery; Visit Provider Surgery
PROC: 0WQF4ZZ Repair Abdominal Wall, Percutaneous Endoscopic Approach (ICD-10-PCS; CPT 49656; principal; 2021-09-17 07:10)
DX: K43.2 Incisional hernia without obstruction or gangrene (principal); I48.0 Paroxysmal atrial fibrillation; Z68.41 Body mass index [BMI] 40.0-44.9, adult; Z87.891 Personal history of nicotine dependence; Z85.3 Personal history of malignant neoplasm of breast; Z86.010 Personal history of colon polyps; G47.33 Obstructive sleep apnea (adult) (pediatric); Z79.01 Long term (current) use of anticoagulants; Z79.899 Other long term (current) drug therapy; E66.9 Obesity, unspecified; Z78.0 Asymptomatic menopausal state; E78.5 Hyperlipidemia, unspecified
CPT/HCPCS: 49656; 64488; 00752; 36415; 36416; 80048; 85027; 85610; J7120; C1781; J2405

== ENCOUNTER → 2021-12-09 | Outpatient (CLI) | payer MEDICARE, BC, SELFPAY ==
--- NOTE | 2021-12-09 06:34 | MRI_ITS ---
STUDY: MRI BRAIN WITH AND WITHOUT CONTRAST REASON FOR EXAM: Female, 66 years old. HISTORY OF MENINGIOMA, surgery 2013 TECHNIQUE: Standardized multiplanar fat and water weighted pulse sequences were obtained. 23ML IV CLARISCAN was administered for the contrast portion of the examination. COMPARISON: MRI of the brain dated November 03, 2018 and JULY 31, 2014. FINDINGS: Stable craniotomy defect in the anterior superior aspect of the right frontal bone and postsurgical volume loss and gliotic change in the medial aspect of the floor of the right frontal lobe from prior resection. No intra-axial or extra-axial mass is present. No suspicious lesions are seen. Normal size of the ventricles and extra-axial spaces for the patient''s age. There are a limited number of small white matter hyperintensities, distributed throughout the deep white matter tracts of the cerebral hemispheres, consistent with mild chronic white matter ischemic changes. There is no evidence for recent intracranial ischemia or other cause of cytotoxic edema on diffusion weighted imaging (DWI). Normal T2* images of the brain without demonstrated susceptibility artifact. There is no demonstrated hemosiderin stain. Normal bilateral basal ganglia. Normal thalami. There is no extra-axial fluid accumulation. Normal flow voids within the major intracranial circulation suggesting patency by spin echo criteria. Normal venous enhancement. There is no enhancing intra-axial or extra-axial abnormality. Normal sella turcica, pituitary gland, infundibular stalk, optic chiasm and hypothalamus. Normal tectal plate and pineal gland. Normal midbrain, chato and medulla. Normal cerebellum. Normal basal cisterns. Normal bilateral temporal bones. Normal bilateral internal auditory canals. No demonstrated orbital abnormality, within the constraints of a routine brain study. Normal visualized paranasal sinuses. Normal calvarium and skull base. Normal visualized soft tissue structures. Normal visualized upper cervical spine. MRI/Brain W/WO Contrast IMPRESSION: 1. Chronic changes of the right frontal lobe and frontal bone from prior surgical intervention. No recurrent meningioma or other lesion. 2. Minor chronic microvascular ischemic change of the white matter. Electronically Signed: Cipriano Rios MD at 13:21 EDT ,
[2021-12-09 07:05] LABS: CREATININE FINGERSTICK 1.1 mg/dL (0.55-1.02)
== END | disposition home or self-care (01) ==
LOC: MRI 06:28
PROVIDERS: PCP Family Medicine; Referring Provider Family Medicine; Visit Provider Family Medicine
DX: Z86.018 Personal history of other benign neoplasm (principal)
CPT/HCPCS: 70553; A9575

== ENCOUNTER 2022-02-24 05:28 | Day surgery (SDC) | payer MEDICARE, BC, SELFPAY ==
[2022-02-24] MEDS: Lactated Ringers 1,000 ML 15 ML IV (05:45)
[2022-02-24 05:59] VITALS: BP 130/62; PULSE 70; RESP 17; TEMP 36.4; O2SAT 99; BMI 39.6
--- NOTE | 2022-02-24 06:02 | HP.PCM_ITS ---
History and Physical Date of Admission: 02/24/22 Visit Reasons:?EGD/C-SCOPE Blood in Stool Chief Complaint: EGD/C- scope, blood in stool Allergies No Known Allergies Allergy (Verified 01/23/22 14:10) Medications pravastatin 40 mg tablet 40 mg PO QHS 90 days #90 tabs 05/16/18 [History Confirmed 01/23/22] allopurinol 100 mg tablet 100 mg PO DAILY 01/26/20 [History Confirmed 01/23/22] lisinopril 30 mg tablet 30 mg PO DAILY 01/26/20 [History Confirmed 01/23/22] cholecalciferol (vitamin D3) 50 mcg (2,000 unit) tablet 50 mcg PO DAILY 05/23/21 [History Confirmed 01/23/22] loratadine 10 mg tablet (Allergy Relief (loratadine)) 10 mg PO DAILY PRN Allergies 05/23/21 [History Confirmed 01/23/22] flecainide 100 mg tablet 100 mg PO Q12H #180 tabs 08/08/21 [Rx Confirmed 01/23/22] metoprolol succinate 25 mg tablet,extended release 24 hr 25 mg PO BID #180 tabs 11/12/21 [Rx Confirmed 01/23/22] warfarin 4 mg tablet (Coumadin) See Rx Instructions PO DAILY 12/05/21 [History Confirmed 01/23/22] PFSH Medical History? Back pain Breast cancer (1999) Colon polyp Essential (primary) hypertension Former smoker Gout History of echocardiogram History of stress test Hyperlipidemia Meningeal tumor Obesity Obstructive sleep apnea Paroxysmal atrial fibrillation Recurrent ventral hernia Recurrent ventral incisional hernia Seizures Sepsis (03/2020) Ventricular tachycardia (01/2020) Wears glasses Surgical History? H/O colonoscopy with polypectomy H/O excision of tumor of brain meninges (2013) History of appendectomy (03/2020) History of herniorrhaphy (03/2020) History of left heart catheterization (01/30/20) History of ventral hernia repair Incisional hernia Family History? Father?? Cancer ?? ? lymphoma, prostate Hypertension High cholesterolMother Colon cancer High cholesterol Hypertension OsteoporosisSister?? Cancer ?? ? endometrial, lung Social History? Smoking Status:? Former smoker quit date: 03/15/93 pack-years: 14 alcohol intake:? never substance use type:? does not use caffeine:? Yes Type: coffee Number of servings: 3 HPI HPI HPI: 66-year-old female who is referred by Dr. Kasi Cueva for surgical consultation regarding Hemoccult positive stool and anemia with thrombocytopenia.? A written copy of my surgical consult recommendations will return to him.? January 05, 2022 hemoglobin was 10.5 with a platelet count of 45,000.? This was repeated and it was noted to be 56,000.? It is of note that previously on September 17, 2021 I performed a laparoscopic ventral incisional herniorrhaphy with bilateral tap block.? A ventral light ST mesh 20.3 x 25.4 cm was utilized.? July 2019 at [facility] the patient had had a laparoscopic assisted hysterectomy for premalignancy.? She developed a ventral incisional hernia subsequent to that.? Final pathology showed multiple lipomas no malignancy.? The patient also had an appendectomy performed by Dr. Radha Mcfadden[facility] April 02, 2020 via a 4 cm supraumbilical incisional hernia.? The patient is on chronic warfarin therapy and flecainide therapy for atrial fibrillation. She had a previous colonoscopy just over a year ago in [facility] Dr. Granda and to our understanding there were no acute findings ROS General General: No weight change, appetite, fatigue, colon cancer, breast cancer or weakness HEENT HEENT: No difficulty swallowing, eye injury, eye surgery, swollen glands or hoarseness Endo Endocrine: No thyroid disease, diabetes mellitus, thyroid cancer, Hair loss, heat intolerance or cold intolerance Skin Skin: No rash or changing moles Breast Breast: No left breast lump, right breast lump, nipple discharge, breast pain, abnormal mammogram, abnormal US or breast enlargement Musc Musculoskeletal: Yes back problems and gout; No arthritis, rheumatoid arthritis or joint pain Cardio Cardiovascular: Yes atrial fibrillation and high blood pressure; No murmur, pacemaker, heart disease, heart attack, heart stent, palpitations, shortness of breat with exertion or chest pain Psych Psychiatric: No depression, anxiety or hearing voices Resp Respiratory: No shortness of breath, Yes sleep apnea, No cough, No COPD, No asthma, No emphysema and No wheezing Gastro Gastrointestinal: No abdominal pain, No nausea or vomiting, Yes diarrhea, Yes constipation, Yes blood in stool, No acid reflux, No hemorrhoids, No ulcers, No gallbladder problem and No black,tarry stools [place] Hematologic: Yes blood thinners, No blood disorders, No bleeding, No anemia and No blood clots Neuro Neurologic: No system reviewed and no additional complaints, except as documented, No as per HPI, No abnormal gait, No abnormal hearing, No abnormal mo vements, No abnormal speech, No behavioral changes, No burning sensations, No confusion, No convulsions, No disequilibrium, No dizziness, No localized weakness, No frequent falls, No headache(s), No lack of coordination, No loss of vision, No memory loss, No numbness, No other visual disturbances, No radicular pain, No restless legs, No sensory deficit, No syncope, No tingling, No tremor(s), No weakness and No other Exam Const General: cooperative Other: Patient does appear to have pale lips HENMT Head: normal to inspection Eyes General: appearance normal, both eyes and all related structures Neck Neck: normal visual inspection Chest Chest palpation & inspection: normal inspection of the chest Resp Effort & Inspection: normal respiratory effort Auscultation: clear to auscultation bilaterally Cardio Other: Irregular heart rate GI Other: Soft, healed supraumbilical midline incision with very solid repair no tenderness no ecchymosis Musc Cervical Spine: normal cervical lordosis Neuro General: patient alert, patient awake and patient oriented x3 Extrem General: no calf tenderness Psych Appearance: grossly normal Assessment and Plan Assessment and Plan (1) Anemia: ?Status:?Acute ?Comment: Anemia with high Retic count which appropriate bone marrow response in addition to High Erythropoietin level. ?Plan: Patient referred with Hemoccult positive stools and anemia and thrombocytopenia.? She is status post a fairly recent laparoscopic ventral incisional herniorrhaphy and from a postsurgical standpoint she appears to be doing very well from that standpoint.? Clinically I am not detecting any adverse effect from that procedure.? She does note some back spasms today but does not suggest that this is a new phenomena I have proposed for her a esophagogastroduodenoscopy with possible biopsy and colonoscopy with possible biopsy or polypectomy as indicated.? She is aware of the technique, benefit, risk, alternatives.? I anticipate using monitored anesthesia care.? I have asked her to hold her warfarin 3 days prior to procedure. She has had the opportunity ask and have questions answered.? We will schedule and try to expedite her care.? I appreciate the ongoing opportunity of assisting with her surgical care. Copy: Dr. Kasi Cueva and Dr. Jairo Matson M.D., F.A.C.S Patient's history and physical exam and outpatient analysis has been reviewed. She has been holding her warfarin. We will proceed with combination esophagogastroduodenoscopy and colonoscopy at her discretion. Rigo Matson M.D., F.A.C.S.
--- NOTE | 2022-02-24 06:30 | EGD_PTH ---
PATIENT: LOVE LLANOS LOC: EN U#:[id number] AGE/SX: 66/F ROOM: RE02/24/[address]: Dr. Rigo Matson MD : 1955 BED: DIS: 02/24/2022 SPEC #: [id number] RECD: 02/24/22 10:26 STATUS: DANA ARABELLA #: [id number] ETHEL: 02/24/22 06:[address]: Rigo Matson DEPT: SURGICAL PATHOLOGY RECD BY: Manjula Nicholson ENTERED: 02/24/22 11:10 SP TYPE: EGD BIOPSY OT DR: Dr. Jairo Romero MD Tissues: A - Gastric mucous membrane B - Esophagus, NOS Procedures: Surgery Specimen Level IV HEADER OPERATION: Colonoscopy, EGD ([facility]), biopsy PRE-OP DIAGNOSIS: Anemia TISSUE SUBMITTED: A - Antrum biopsy for histo and H. pylori, B - Lesser curvature possible ulcer biopsy MICROSCOPIC DIAGNOSIS A. Gastric antrum, biopsy: Chronic gastritis. See comment. B. Stomach, lesser curvature, biopsy: Consistent with fundic gland polyp. Mild chronic inflammation. See comment. AM:jevon 02/25/2022 COMMENT A. The results of immunohistochemistry for Helicobacter pylori will be reported separately ([id number]). B. An ulcer is not identified. Clinical correlation is suggested. MICROSCOPIC DESCRIPTION Slides are reviewed. GROSS DESCRIPTION A - Received in fixative is one container labeled with the patient's name and designated antrum biopsy. The specimen consists of one irregular fragment of light jaramillo soft tissue that measures 0.5 x 0.2 x 0.1 cm. The specimen is totally submitted in one cassette. B - Received in fixative is one container labeled with the patient's name and designated lesser curvature ulcer biopsy. The specimen consists of one irregular fragment of light jaramillo soft tissue that measures 0.6 x 0.5 x 0.1 cm. The specimen is totally submitted in one cassette. / EMILIANO:jevon 02/24/2022 TC:3 CPT: 45143 x2
--- NOTE | 2022-02-24 06:30 | IMM_PTH ---
PATIENT: LOVE LLANOS LOC: EN U#:[id number] AGE/SX: 66/F ROOM: RE02/24/[address]: Dr. Rigo Matson MD : 1955 BED: DIS: 02/24/2022 SPEC #: [id number] RECD: 02/24/22 11:45 STATUS: DANA REQ #: [id number] ETHEL: 02/24/22 06:[address]: Rigo Matson DEPT: IMMUNOHISTOCHEMISTRY RECD BY: Gi Gurrola ENTERED: 02/24/22 11:45 SP TYPE: IMMUNO OTHR DR: Dr. Jairo Romero MD Tissues: A - Stomach, NOS Procedures: H Pylori (initial) PHYSICIAN & INSTITUTION [place] [id number] SPECIMEN INFORMATION: Tissue Source: A ? Antrum biopsy Clinical Info: Anemia Specimen Number: [id number] CPT code: 23545 METHODOLOGY: Deparaffinized sections of prefer/formalin-fixed tissue or PAP/DQ stained slides are incubated with monoclonal/polyclonal antibodies/oligonucleotide probes. Localization is made via biotin free immunoperoxidase method. Appropriate controls are performed and reacted as expected. Results on target cell population are indicated in the following table: RESULTS: ANTIBODY / CLONE RESULT Block A H Pylori (polyclonal) negative These tests were developed and their performance characteristics determined by [facility]. They may not have been cleared or approved by the U.S. Food and Drug Administration. The FDA has determined that such clearance or approval is not necessary. The above immunohistochemical/dualISH markers are ordered and reviewed by the Pathologist. INTERPRETATION: A. Antrum, biopsy: Negative for Helicobacter pylori organisms. SJ:jevon 02/25/2022
[2022-02-24] MEDS: 0.9% Normal Saline (Pres. free 10 ML Vial (06:39)
[2022-02-24] MEDS: Epinephrine (1 mg/ml) 1 MG/ML VIAL (06:40)
[2022-02-24 07:05] VITALS: BP 130/62; BP 99/56; PULSE 74; RESP 16; TEMP 37; O2SAT 94
--- NOTE | 2022-02-24 07:08 | OP.EGD_ITS ---
Patient Name: Diana Palacios Procedure Date: 02/24/2022 6:12 AM Date of : 1955 Age: 66 Procedure: Upper GI endoscopy Indications: Iron deficiency anemia Providers: Rigo Matson MD Referring MD: Jairo Romero Medicines: See the Anesthesia note for documentation of the administered medications Complications: No immediate complications. Procedure: Pre-Anesthesia Assessment: - Prior to the procedure, a History and Physical was performed, and patient medications and allergies were reviewed. The patient's tolerance of previous anesthesia was also reviewed. The risks and benefits of the procedure and the sedation options and risks were discussed with the patient. All questions were answered, and informed consent was obtained. Prior Anticoagulants: The patient has taken Coumadin (warfarin), last dose was 3 days prior to procedure. ASA Grade Assessment: III - A patient with severe systemic disease. After reviewing the risks and benefits, the patient was deemed in satisfactory condition to undergo the procedure. After obtaining informed consent, the endoscope was passed under direct vision. Throughout the procedure, the patient's blood pressure, pulse, and oxygen saturations were monitored continuously. The gastroscope was introduced through the mouth, and advanced to the second part of duodenum. The upper GI endoscopy was accomplished without difficulty. The patient tolerated the procedure well. Scope In: 6:31:22 AM Scope Out: 6:42:57 AM Total Procedure Duration Time 0 hours 11 minutes 35 seconds Findings: A small hiatal hernia was present. The Z-line was regular and was found 40 cm from the incisors. Diffuse mildly erythematous mucosa without bleeding was found in the gastric antrum. Biopsies were taken with a cold forceps for histology. A single localized, 6 mm bleeding erosion was found on the lesser curvature of the stomach. There were no stigmata of recent bleeding. Biopsies were taken with a cold forceps for histology. To prevent bleeding post-intervention, one hemostatic clip was successfully placed. Area was successfully injected with 6 mL of a 1:10,000 solution of epinephrine for hemostasis of bleeding caused by the procedure. Estimated blood loss was minimal. The examined duodenum was normal. Impression: - Small hiatal hernia. - Z-line regular, 40 cm from the incisors. - Erythematous mucosa in the antrum. Biopsied. - Bleeding erosive gastropathy. Biopsied. Clip was placed. Injected. - Normal examined duodenum. Recommendation: - Discharge patient to home. - Resume previous diet. - Continue present medications. - Telephone my office for pathology results in 1 week. - Use Prilosec (omeprazole) 40 mg PO daily. Procedure Code(s): --- Professional --- 19472, Esophagogastroduodenoscopy, flexible, transoral; with biopsy, single or multiple Diagnosis Code(s): --- Professional --- K44.9, Diaphragmatic hernia without obstruction or gangrene K31.89, Other diseases of stomach and duodenum K92.2, Gastrointestinal hemorrhage, unspecified D50.9, Iron deficiency anemia, unspecified CPT copyright 2017 [employer] [place] [employer]. All rights reserved. The codes documented in this report are preliminary and upon laboratory tech review may be revised to meet current compliance requirements. Rigo Matson MD 02/24/2022 7:07:13 AM This report has been signed electronically. Number of Addenda: 0 Note Initiated On: 02/24/2022 6:12 AM
--- NOTE | 2022-02-24 07:08 | OP.CCLET_ITS ---
02/24/2022 Kasi Cueva MD [id number] [place] [address] Re : Upper GI endoscopy procedure for Diana Palacios Dear Dr. Cueva This procedure was performed on Thursday, February 24, 2022. My impressions and recommendations are as follows: Impressions : - Small hiatal hernia. - Z-line regular, 40 cm from the incisors. - Erythematous mucosa in the antrum. Biopsied. - Bleeding erosive gastropathy. Biopsied. Clip was placed. Injected. - Normal examined duodenum. Recommendations : - Discharge patient to home. - Resume previous diet. - Continue present medications. - Telephone my office for pathology results in 1 week. - Use Prilosec (omeprazole) 40 mg PO daily. My findings are described in the full procedure note, which is enclosed. If I can be of further assistance, please feel free to contact me at Doctor phone number(s): Work: . Sincerely, Rigo Matson MD 02/24/2022 7:07:13 AM This report has been signed electronically.
[2022-02-24 07:10] VITALS: BP 110/52; BP 130/62; PULSE 73; RESP 16; O2SAT 100
--- NOTE | 2022-02-24 07:12 | OP.COLON_ITS ---
Patient Name: Diana Palacios Procedure Date: 02/24/2022 6:45 AM Date of : 1955 Age: 66 Procedure: Colonoscopy Indications: Iron deficiency anemia Providers: Rigo Matson MD Referring MD: Jairo Romero Medicines: See the Anesthesia note for documentation of the administered medications Patient Profile: Last Colonoscopy: date unknown. Complications: No immediate complications. Procedure: Pre-Anesthesia Assessment: - Prior to the procedure, a History and Physical was performed, and patient medications and allergies were reviewed. The patient's tolerance of previous anesthesia was also reviewed. The risks and benefits of the procedure and the sedation options and risks were discussed with the patient. All questions were answered, and informed consent was obtained. Prior Anticoagulants: The patient has taken Coumadin (warfarin), last dose was 3 days prior to procedure. ASA Grade Assessment: III - A patient with severe systemic disease. After reviewing the risks and benefits, the patient was deemed in satisfactory condition to undergo the procedure. After I obtained informed consent, the scope was passed under direct vision. Throughout the procedure, the patient's blood pressure, pulse, and oxygen saturations were monitored continuously. The colonoscope was introduced through the anus and advanced to the cecum, identified by appendiceal orifice and ileocecal valve. The colonoscopy was technically difficult and complex due to a tortuous colon. Successful completion of the procedure was aided by applying abdominal pressure. The patient tolerated the procedure well. The quality of the bowel preparation was good. Scope In: 6:46:44 AM Scope Withdrawal Time 0 hours 6 minutes 22 seconds Scope Out: 6:59:50 AM Total Procedure Duration Time 0 hours 13 minutes 6 seconds Findings: The digital rectal exam findings include non-thrombosed external hemorrhoids, non-thrombosed internal hemorrhoids and internal hemorrhoids that prolapse with straining, but spontaneously regress to the resting position (Grade II). Scattered diverticula were found in the sigmoid colon. The left colon was moderately tortuous. The exam was otherwise without abnormality. Impression: - Non-thrombosed external hemorrhoids, non-thrombosed internal hemorrhoids and internal hemorrhoids that prolapse with straining, but spontaneously regress to the resting position (Grade II) found on digital rectal exam. - Diverticulosis in the sigmoid colon. - Tortuous colon. - The examination was otherwise normal. - No specimens collected. Recommendation: - Discharge patient to home. - Resume previous diet. - Continue present medications. - Repeat colonoscopy in 10 years for screening purposes. Procedure Code(s): --- Professional --- 66153, Colonoscopy, flexible; diagnostic, including collection of specimen(s) by brushing or washing, when performed (separate procedure) Diagnosis Code(s): --- Professional --- K64.1, Second degree hemorrhoids K64.4, Residual hemorrhoidal skin tags D50.9, Iron deficiency anemia, unspecified K57.30, Diverticulosis of large intestine without perforation or abscess without bleeding Q43.8, Other specified congenital malformations of intestine CPT copyright 2017 [employer]. All rights reserved. The codes documented in this report are preliminary and upon diamond die polisher review may be revised to meet current compliance requirements. Rigo Matson MD 02/24/2022 7:12:01 AM This report has been signed electronically. Number of Addenda: 0 Note Initiated On: 02/24/2022 6:45 AM
--- NOTE | 2022-02-24 07:12 | OP.CCLET_ITS ---
02/24/2022 Jairo Romero Re : Colonoscopy procedure for Diana Palacios Dear Heather This procedure was performed on Thursday, February 24, 2022. My impressions and recommendations are as follows: Impressions : - Non-thrombosed external hemorrhoids, non-thrombosed internal hemorrhoids and internal hemorrhoids that prolapse with straining, but spontaneously regress to the resting position (Grade II) found on digital rectal exam. - Diverticulosis in the sigmoid colon. - Tortuous colon. - The examination was otherwise normal. - No specimens collected. Recommendations : - Discharge patient to home. - Resume previous diet. - Continue present medications. - Repeat colonoscopy in 10 years for screening purposes. My findings are described in the full procedure note, which is enclosed. If I can be of further assistance, please feel free to contact me at Doctor phone number(s): Work: . Sincerely, Rigo Matson MD 02/24/2022 7:12:01 AM This report has been signed electronically.
[2022-02-24 07:15] VITALS: BP 117/52; BP 130/62; PULSE 71; RESP 16; O2SAT 98
[2022-02-24 07:20] VITALS: BP 120/61; BP 130/62; PULSE 69; RESP 16; TEMP 36.8; O2SAT 96
[2022-02-24 08:07] VITALS: BP 130/62
== END 2022-02-24 08:16 | disposition home or self-care (01) ==
LOC: EN 05:28 → AC 05:29
PROVIDERS: PCP Family Medicine; Referring Provider Family Medicine; Visit Provider Surgery
PROC: 0DJD8ZZ Inspection of Lower Intestinal Tract, Via Natural or Artificial Opening Endoscopic (ICD-10-PCS; CPT 45378; principal; 2022-02-24 06:25)
DX: Z12.11 Encounter for screening for malignant neoplasm of colon (principal); I48.0 Paroxysmal atrial fibrillation; K44.9 Diaphragmatic hernia without obstruction or gangrene; K64.1 Second degree hemorrhoids; K31.7 Polyp of stomach and duodenum; K29.50 Unspecified chronic gastritis without bleeding; K31.89 Other diseases of stomach and duodenum; Q43.8 Other specified congenital malformations of intestine; D64.9 Anemia, unspecified; G47.33 Obstructive sleep apnea (adult) (pediatric); I10 Essential (primary) hypertension; Z79.899 Other long term (current) drug therapy; Z79.01 Long term (current) use of anticoagulants; Z87.891 Personal history of nicotine dependence; Z86.010 Personal history of colon polyps
CPT/HCPCS: 45378; 43239; 88305; 88342; J7120; J2405; J3490

== ENCOUNTER → 2022-03-19 | Outpatient (CLI) | payer MEDICARE, BC, SELFPAY ==
[2022-03-19] VITALS (11 sets, daily range): BP systolic 101–150; BP diastolic 34–61; PULSE 63–75; RESP 18–35; O2SAT 92–98; BMI 40.0
--- NOTE | 2022-03-19 | BMB_PTH ---
PATIENT: LOVE LLANOS LOC: CT U#:[id number] AGE/SX: 66/F ROOM: RE03/19/[address]: Dr. Kasi Cueva MD : 1955 BED: DIS: 03/19/2022 SPEC #: [id number] RECD: 03/19/22 09:55 STATUS: DANA REQ #: [id number] ETHEL: 03/19/22 00:[address]: Kasi Cueva DEPT: BONE MARROW RECD BY: Manjula Nicholson ENTERED: 03/19/22 09:56 SP TYPE: BMB ALVARO DR: Dr. Jairo Romero MD Tissues: A - Bone marrow, NOS B - Bone marrow, NOS C - Bone marrow, NOS Procedures: Decalcification bone/plaque Bone Marrow Aspiration Bone Marrow Core Biopsy Iron Stain Bone Marrow HEADER OPERATION: CT-guided bone marrow biopsy and aspiration PRE-OP DIAGNOSIS: Thrombocytopenia, leukocytosis TISSUE SUBMITTED: A - Core, B - Clot, C - Smears, and send outs (flow, cytogenetics and FISH) BONE MARROW DIAGNOSIS Bone marrow core, clot and aspirate smears: Morphologically consistent with acute myeloid leukemia. Hypercellular (90-100%) bone marrow with increased left-shifted myelopoiesis, proportionally decreased erythropoiesis and decreased megakaryopoiesis. Increased stainable iron with occasional (10-15%) ring sideroblasts. See comment. SJ:jevon 04/20/2022 COMMENT The specimen sent to [facility] for expert opinion and reviewed by Dr. Bach and above diagnosis is rendered. The complete report is viewable in patient?s EMR. The peripheral blood shows monocytosis with rare blasts. On aspirate, blasts/promonocytes are increased (>20%) and show decreased maturation. Per outside institution report, flow cytometric analysis detected rare CD34 positive blasts and increased monocytes with aberrant phenotype (expression of CD56 positive). Per outside institution report, cytogenetic studies detected a normal karyotype. NGS studies were ordered at [facility] prior to receipt of additional outside reports. NGS studies demonstrate mutations in IDH2, ASXL1 and SRSF2. The flow cytometric results may represent hemodilution effect. Taken together, the findings are most consistent with acute myeloid leukemia. There is monocytic differentiation and mutations associated with myelodysplasia. Clinical correlation is recommended. Flow cytometry study from [facility] shows monocytosis with phenotypic atypia. There is no evidence of acute myeloid leukemia, a lymphoproliferative disorder. In the sample analyzed, there is no detectable clonal plasma cell population. The complete flow cytometry analysis report is viewable in patient?s EMR. Cytogenetics Report from [facility] Cytogenetic Result: 46,XX[20] Interpretation: Normal female chromosome complement was observed in twenty metaphases analyzed. [facility] NGS Report from [facility] Result Summary: Abnormal Pertinent Negative Results: The following genes are NEGATIVE for clinically relevant mutations. Mutational hotspots and surrounding exonic regions were interrogated for DNA level point mutations and indels (fusions not assayed). ABL1, ANKRD26, ATRX, BCOR, BCORL1, BRAF, CALR, CBL, CCND2, CDKN2A, CEBPA, CSF3R, CUX1, DDX41, DNMT3A, ETNK1, ETV6, EZH2, FBXW7, FLT3, GATA2, HRAS, IDH1, JAK2, KDM6A, KIT, KMT2A, KRAS, MAP2K1, MPL, MYD88, NF1, NPM1, NRAS, PDGFRA, PHF6, PTEN, PTPN11, RUNX1, SETBP1, SF3B1, STAG2, TET2, TP53, U2AF1, WT1, ZRSR2 Fluorescence In-Situ Hybridization (FISH) From [facility] Interpretation: 1. No evidence of BCR/ABL rearrangement. 2. No evidence of PML/TSERING gene rearrangement. 3. No evidence of RUNX1/UXAY4L2 [t(8;21)]. 4. No evidence of CBFB [inversion(16) or translocation t(16;16)] gene rearrangement. 5. No evidence of MLL gene locus 11q23 translocation. Myeloid Neoplasm Sequencing Panel from [facility] Interpretation: Mutations in IDH2 and SRSF2 detected, along with an inactivating ASXL1 mutation, compatible with acute myeloid leukemia. Immunohistochemistry ([id number]) is negative for increased blasts population. Negative for involvement by lymphoma. This case was discussed with Dr. Cueva on 03/20/2022, 03/23/2022 and 04/08/2022. This case was discussed with Dr. Han Rodriguez from [facility] on 04/07/2022. Case has been reviewed in consultation with Dr. Rivera who concurs with the above diagnosis. IDC:AM BONE MARROW STUDY Slides are reviewed. CBC date: 03/19/22 WBC: 54.5, RBC: 2.92, Hgb: 7.7, Hct: 26.2, MCV: 89.7, RDW: 23.3, Platelets: 02504, Segs %: 22.9, Lymphs %: 8.1, Monos %; 63.9, Eos %: 0, Basos %: 0.3, Immunature granulocytes%: 4.8, NRBc;s 4.0. CBC data and smear review (200 cells): No CBC received by outside institution. Manual differential: blasts/promonocytes 2%, promyelocytes 0%, myelocytes 1%, metamyelocytes 0%, bands 1%, neutrophils 26%, lymphocytes 6%, monocytes 64%, eosinophils 0%, basophils 0%, nRBCs 6% Blood smear findings: Review of the peripheral smear demonstrates leukocytosis with increased circulating monocytes and rare blasts/promonocytes. Red blood cells show mild polychromasia and occasional nucleated red blood cells (6/100). There are decreased platelets with unremarkable platelet morphology. Aspirate smear quality: The aspirates are specular and cellular. The staining is adequate. Bone marrow aspirate smear differential (500 cells): Blasts/promonocytes: 22% Promyelocytes: 1% Myelocytes: 12% Metamyelocytes: 5% Bands/neutrophils: 10% Lymphocytes: 4% Monocytes: 15% Eosinophils: 0% Basophils: 0% Erythroid: 31% Plasma cells: 0% M:E Ratio: The myeloid to erythroid ratio is 1.6:1 Erythropoiesis: Adequate. Mildly left-shifted, but with maturation. Rare (<10%) erythroid precursors show megaloblastoid change and/or nuclear contours. Granulopoiesis: Decreased maturation. The blasts are moderate to large in size with variable moderate cytoplasm, round to mildly folded nuclei, fine chromatin and variably prominent nucleoli. There are increased monocytes and occasional monoblasts/promonocytes present. Megakaryocytes: Megakaryocytes are decreased and show unremarkable morphology. Lymphocytes/plasma cells: The lymphocytes and plasma cells are not increased and show unremarkable morphology. Iron stain: Iron staining is adequate. Occasional (10-15%) ring sideroblasts are seen. The iron control shows appropriate reactivity. Iron stain on core and clot show increased stainable iron. BONE MARROW GROSS A - Received is a container labeled with the patient's name and designated bone marrow. The specimen consists of a piece of jaramillo bone measuring 0.5 cm in length and 0.1 cm in diameter. The specimen is totally submitted in one cassette after decalcification. B - Received labeled with the patient's name and designated bone marrow is a specimen that consists of approximately 6 ml of bloody fluid that on filtration yields multiple minute fragments of blood clots measuring in aggregate 3 x 2.5 x 0.3 cm. The specimen is totally submitted in one cassette. C - Also received are 16 unstained and 1 peripheral stained slides. The unstained slides are submitted for appropriate staining. Also received is one green top tube which is sent to our reference lab for flow, cytogenetics and FISH. / SJ:rg 03/19/2022 TC:0 CPT: 64248, 95819, 26349 x2, 28755 x3, 70812
--- NOTE | 2022-03-19 | IMM_PTH ---
PATIENT: LOVE LLANOS LOC: CT U#:[id number] AGE/SX: 66/F ROOM: RE03/19/[address]: Dr. Kasi Cueva MD : 1955 BED: DIS: 03/19/2022 SPEC #: [id number] RECD: 03/20/22 14:03 STATUS: DANA REQ #: [id number] ETHEL: 03/19/22 00:[address]: Kasi Cueva DEPT: IMMUNOHISTOCHEMISTRY RECD BY: Gi Gurrola ENTERED: 03/20/22 14:05 SP TYPE: IMMUNO OTHR DR: Dr. Jairo Romero MD Tissues: A - Bone marrow of iliac crest B - Bone marrow of iliac crest Procedures: BCL-2 (add) BCL-6 (add) CD10 (add) CD20 (add) CD23 (add) CD30 (add) CD34 (add) CD43 (add) CD5 (add) CD79A (add) CYCLIN (add) MPO (add) MUM1 (add) C-MYC (add) CD45 (initial) PHYSICIAN & [address] [address] SPECIMEN INFORMATION: Tissue Source: A ? Bone marrow core, B ? Bone marrow clot Clinical Info: Thrombocytopenia, leukocytosis Specimen Number: [id number] A & B CPT code: 68245 x2, 64369 x16 METHODOLOGY: Deparaffinized sections of prefer/formalin-fixed tissue or PAP/DQ stained slides are incubated with monoclonal/polyclonal antibodies/oligonucleotide probes. Localization is made via biotin free immunoperoxidase method. Appropriate controls are performed and reacted as expected. Results on target cell population are indicated in the following table: RESULTS: ANTIBODY / CLONE RESULT Block A CD45 (RP2/18) positive MPO (polyclonal) positive CD34 (QBEnd-10) negative CD5 (SP10) negative CD20 (L26) negative CD79a (11E3) negative CD43 (L60) positive CD10 (56C6) negative CD23 (1B12) negative CD30 (Thomas-H2) negative BCL-2 (bcl-2/100/D5) positive BCL-6 (WF328P/A8) positive, weak Cyclin D1/BCL-1 (SP4) negative MUM1 (MRQ-43) negative, rare cells C-MYC (Y69) positive Block B CD45 (RP2/18) positive MPO (polyclonal) positive CD34 (QBEnd-10) negative These tests were developed and their performance characteristics determined by [facility]. They may not have been cleared or approved by the U.S. Food and Drug Administration. The FDA has determined that such clearance or approval is not necessary. The above immunohistochemical/dualISH markers are ordered and reviewed by the Pathologist. INTERPRETATION: A. Bone marrow core: Negative for CD34 positive blasts. Negative for involvement by lymphoma. B. Bone marrow clot: Negative for CD34 positive blasts. SJ:jevon 04/20/2022 Case has been reviewed in consultation with Dr. Rivera who concurs with the above diagnosis. IDC:AM
[2022-03-19 07:55] LABS: Absolute Lymphocyte Count 4.42 X10^3/uL (0.83-4.51); Absolute Neutrophil Count 12.5 X10^3/uL (2.0-7.7); Basophil# 0.15 X10^3/uL; Basophil% 0.3 % (0-1); Hematocrit 26.2 % (37-47); Hemoglobin 7.7 g/dL (12.0-15.0); Lymphocyte # 4.42 X10^3/ul (0.83-4.51); Lymphocyte % 8.1 % (19-41); Mean Corp Hgb Conc 29.4 g/dL (32-36); Mean Corpuscular Hgb 26.4 pg (27.0-32.0); Mean Corpuscular Volume 89.7 fL (81-99); Monocyte# 34.86 X10^3/uL; Monocyte% 63.9 % (0-10); Neutrophil # 12.51 X10^3/uL (2.7-7.7); Neutrophil % 22.9 % (47-70); POSITIVE COUNT YES; POSITIVE DIFFERENTIAL YES; POSITIVE MORPHOLOGY YES; RBC Distribution Width CV 23.3 % (11.6-14.6); RBC Distribution Width SD 75.3 fl (35.1-43.9); Red Blood Count 2.92 M/mm3 (4.2-5.4)
[2022-03-19 08:21] LABS: White Blood Count 54.5 K/mm3 (4.4-11.0)
[2022-03-19 08:22] LABS: Differential Indicated SCAN CRITERIA MET; Platelet Count 36 K/mm3 (150-450)
[2022-03-19 08:27] LABS: International Normalized Ratio 1.4; Prothrombin Time (Protime)PT. 16.8 SECONDS (11.7-14.9)
[2022-03-19 08:28] LABS: Partial Thromboplast Time 38.5 Seconds (24.1-36.2)
--- NOTE | 2022-03-19 08:37 | RAD_ITS ---
STUDY: X-RAY CHEST REASON FOR EXAM: Female, 66 years old. Elevated WBC count prior to biopsy TECHNIQUE: Single AP portable view of the chest. COMPARISON: Comparison is made with prior study dated 01/26/2020. FINDINGS: EKG electrodes are seen. Mild degree of increased markings at the lung bases suggest a bilateral bibasilar atelectasis and/or early infiltrates at the lung bases. Follow-up is recommended. There is no demonstrated pleural abnormality. Normal size heart. Normal mediastinum and lonny. Normal visualized pulmonary arteries. There is atherosclerotic calcification of the aortic arch with tortuosity. There are diffuse degenerative changes of the visualized thoracic spine. Normal visualized ribs, clavicles, and shoulders. There is no demonstrated abnormality of the visualized soft tissue structures of the upper abdomen. RAD/Chest 1 View (Portable) IMPRESSION: Increased markings at the lung bases suggestive of bibasilar atelectasis and/or early infiltrates. Radiographic follow-up is recommended. Electronically Signed: Wilfrido Duong MD at 9:26 EST ,
--- NOTE | 2022-03-19 08:45 | CT_ITS ---
PROCEDURE: CT GUIDED BONE marrow biopsy and aspirate of the left posterior iliac bone. DATE: 03/19/2022. INDICATION: Female, 66 years old. Thrombocytopenia/leukocytosis. PHYSICIAN: Wilfrido Duong M.D. RADIATION DOSAGE (If Supplied By Facility): CTDIvol = ( 24 ) mGy, DLP = ( 545.94 ) mGycm. Individualized dose optimization techniques were utilized. PROCEDURE: The risks, benefits, and alternatives to the procedure were explained to the patient. The specific risk of hemorrhage requiring further treatment or intervention was detailed and accepted. Follow-up instructions were discussed with the patient as well. Written informed consent was obtained. The patient was brought into the CT suite and placed in the prone position. . An appropriate entry site was identified. The overlying skin was prepped and draped in the usual sterile fashion. 1% lidocaine was administered subcutaneously for local anesthesia. Conscious sedation was performed. The patient received 2 mg of VERSED and 50 mcg of FENTANYL intravenously. Conscious sedation was started at 9:15 AM and terminate at 9:39 AM. The patient was independently monitored by the department nurse. Under CT guidance, a bone marrow biopsy and aspirate were performed utilizing an 11-gauge bone marrow biopsy kit. The specimens were then placed in the appropriate fluid and transported to the laboratory for analysis. Hemostasis was obtained. The patient tolerated the procedure well without immediate complications. CT/Biopsy/Inj or Needle Placement IMPRESSION: Successful CT guided bone marrow biopsy and aspirate of the posterior left iliac bone, as described above. Conscious sedation protocol was followed. Electronically Signed: Wilfrido Duong MD at 10:09 EST ,
[2022-03-19 08:57] LABS: Anisocytosis 1+; Platelet Estimate MKD DEC (ADEQ)
[2022-03-19 08:58] LABS: Reactive Lymphocyte RARE
[2022-03-19] MEDS: Midazolam 2 MG/2 ML Syringe IV (09:15)
[2022-03-19] MEDS: fentaNYL 100 MCG/2 ML Ampul IV (09:19)
[2022-03-19] MEDS: Lidocaine 1% (20 ml mdv) 20 ML Vial INFILT (09:29)
[2022-03-23 10:56] LABS: Pathologist Review Reviewed
== END | disposition home or self-care (01) ==
LOC: CT 07:32
PROVIDERS: PCP Family Medicine; Referring Provider Internal Medicine Medical Oncology; Visit Provider Internal Medicine Medical Oncology
DX: D72.829 Elevated white blood cell count, unspecified (principal); R07.89 Other chest pain; Z79.01 Long term (current) use of anticoagulants
CPT/HCPCS: 38222; 36415; 71045; 77012; 85025; 85610; 85730; 88305; 88311; 88313; 88341; 88342; 99156; J7050; A4216

== ENCOUNTER → 2022-03-26 | Outpatient (CLI) | payer MEDICARE, BC, SELFPAY ==
--- NOTE | 2022-03-26 08:21 | US_ITS ---
STUDY: ABDOMINAL ULTRASOUND - ELASTOGRAPHY REASON FOR VISIT: Female, 66 years old. Thrombocytopenia. TECHNIQUE: Liver stiffness measurements were obtained on a [employer] RS 85 ultrasound machine using a CA 1-7 probe following the SRU guidelines. 3 measurements were obtained using a 2-D-SWE method. The IQR/M was 22% suggesting a quality data set. TECHNICAL QUALITY: Adequate. COMPARISON: Comparison is made with prior sonogram done earlier today. FINDINGS: Liver: Fatty infiltration of the liver. Median liver stiffness measured 6.9 kPa. US/Elastography Parenchyma/Organ IMPRESSION: Liver stiffness measures 6.9 kPa compatible with F2-F3 (Mild to moderate liver fibrosis) Metavir score. Electronically Signed: Wilfrido Duong MD at 13:14 EST ,
--- NOTE | 2022-03-26 08:21 | US_ITS ---
STUDY: ABDOMINAL ULTRASOUND - RIGHT UPPER QUADRANT REASON FOR VISIT: Female, 66 years old ELEVATED FERRITIN,PEDRO PABLO TECHNIQUE: Ultrasound evaluation of the right upper quadrant was performed with real-time and static griffin-scale imaging. TECHNICAL QUALITY: Adequate. COMPARISON: None. FINDINGS: Liver: The liver measures 16.5 cm. There is increased echogenicity consistent with fatty infiltration. The bile ducts are within normal limits. There is hepatic color flow. The direction of portal flow is hepatopetal. There is no demonstrated mass lesion. Gallbladder: Normal distended gallbladder. The gallbladder wall measures 2.5 mm. There is a negative sonographic Carvajal''s sign. There is no pericholecystic fluid. There is a solitary echogenic gallstone within the fundal portion of the gallbladder. This measures 2.6 cm x 2.5 cm x 2.2 cm. Sludge is also seen within the gallbladder lumen. Common Bile Duct (C.B.D.): The common bile duct measures 8.0 mm. Pancreas: Normal size of the head, body and tail of the pancreas. There is normal echogenicity of the pancreas. There is no demonstrated pancreatic mass or cyst. Right Kidney: Normal size of the right kidney. The right kidney measures 10.1 cm x 5.8 cm x 4.7 cm. Normal renal cortex. The right cortex measures 1.3 cm. There is no demonstrated renal mass or cyst. There is no right hydronephrosis. US/Abdomen Limited IMPRESSION: Fatty infiltration of the liver. Sludge filled gallbladder with a solitary gallstone measuring 2.6 x 2.55 x 2.2 cm in the fundal portion of the gallbladder. Electronically Signed: Wilfrido Duong MD at 13:13 EST ,
== END | disposition home or self-care (01) ==
LOC: US 08:20
PROVIDERS: PCP Family Medicine; Referring Provider Internal Medicine Medical Oncology; Visit Provider Internal Medicine Medical Oncology
DX: D69.6 Thrombocytopenia, unspecified (principal); R79.89 Other specified abnormal findings of blood chemistry; D50.9 Iron deficiency anemia, unspecified
CPT/HCPCS: 76705; 76981

== ENCOUNTER → 2022-04-16 | Outpatient (CLI) | payer MEDICARE, BC, SELFPAY | END | disposition home or self-care (01) | LOC: LAB 13:41 | PROVIDERS: PCP Family Medicine; Referring Provider Family Medicine; Visit Provider Family Medicine | DX: M10.9 Gout, unspecified (principal) | CPT/HCPCS: 36415; 84550 ==

== ENCOUNTER → 2022-05-22 | Outpatient (CLI) | payer MEDICARE, BC, SELFPAY ==
[2022-05-22 12:29] LABS: Absolute Lymphocyte Count 0.62 X10^3/uL (0.83-4.51); Absolute Neutrophil Count 0.3 X10^3/uL (2.0-7.7); Hematocrit 29.3 % (37-47); Hemoglobin 8.7 g/dL (12.0-15.0); Lymphocyte # 0.62 X10^3/ul (0.83-4.51); Lymphocyte % 59.6 % (19-41); Mean Corp Hgb Conc 29.7 g/dL (32-36); Mean Corpuscular Hgb 27.3 pg (27.0-32.0); Mean Corpuscular Volume 91.8 fL (81-99); Monocyte# 0.08 X10^3/uL; Monocyte% 7.7 % (0-10); NRBC Flagged by Analyzer 2.9 % (0-5); Neutrophil # 0.33 X10^3/uL (2.7-7.7); Neutrophil % 31.7 % (47-70); POSITIVE COUNT YES; POSITIVE DIFFERENTIAL YES; POSITIVE MORPHOLOGY YES; Platelet Count 19 K/mm3 (150-450); RBC Distribution Width CV 22.2 % (11.6-14.6); RBC Distribution Width SD 71.7 fl (35.1-43.9); Red Blood Count 3.19 M/mm3 (4.2-5.4)
[2022-05-22 12:40] LABS: Erythrocyte Sedimentation Rate 10 mm/hr (0-30)
[2022-05-22 13:16] LABS: Differential Indicated SCAN CRITERIA MET
[2022-05-22 13:19] LABS: Anisocytosis 2+; Differential Comment SCANNED; Hypochromasia 2+; Macrocytosis 1+; Microcytosis 1+; Platelet Estimate MKD DEC (ADEQ)
[2022-05-22 15:00] LABS: BUN 20 mg/dL (7-18); BUN/Creat Ratio 18.9 RATIO (10-20); Creatinine, Serum 1.06 mg/dL (0.55-1.02); EST Glomerular Filtration Rate 55 mL/min (>60); Est Glom Filt Rate - Afr Amer 67 mL/min (>60); Glucose 119 mg/dL (74-106)
[2022-05-22 15:01] LABS: AST(SGOT) 26 U/L (15-37); Albumin, Serum 3.6 g/dL (3.2-5.0); Alkaline Phosphatase 72 U/L (45-117); Calcium,Total 9.2 mg/dL (8.5-10.1); Globulin 3.7 g/dL (2.2-4.2); Protein, Total 7.3 g/dL (6.4-8.2); Uric Acid 3.1 mg/dL (2.6-6.0)
[2022-05-22 15:02] LABS: Alanine Aminotransfer ALT/SGPT 34 U/L (13-56); Anion Gap 9 (5-15); CRP 8.04 mg/L (0.0-3.0); Chloride 107 mmol/L (98-107); Potassium 4.1 mmol/L (3.5-5.1); Rheumatoid Factor < 10.0 IU/mL (<15); Sodium Level 141 mmol/L (136-145)
[2022-05-23 12:38] LABS: CCP IgG Antibodies 0 units (0-19)
[2022-05-25 13:53] LABS: Pathologist Review Reviewed
== END | disposition home or self-care (01) ==
LOC: MTLAB 10:31
PROVIDERS: PCP Family Medicine; Referring Provider Internal Medicine Rheumatology; Visit Provider Internal Medicine Rheumatology
DX: M10.9 Gout, unspecified (principal); C92.00 Acute myeloblastic leukemia, not having achieved remission
CPT/HCPCS: 36415; 80053; 84550; 85025; 85652; 86140; 86200; 86431

== ENCOUNTER 2022-07-09 23:06 | Inpatient (IN) | payer MEDICARE, BC, SELFPAY ==
[2022-07-09 23:08] VITALS: BP 108/86; PULSE 105; RESP 18; TEMP 36.8; O2SAT 98; BMI 39.2
--- NOTE | 2022-07-09 23:50 | EX.ED.DYSGE1 ---
HPI History of Present Illness Chief Complaint: Fever Informant: patient and spouse/S.O. Narrative Narrative: Fevers this evening, maximum temperature that she measured was 100.5. She has AML recently received chemotherapy which she has been doing, counts were low today. She does not have any other focal symptoms of any illness recently. She feels okay right now. She called her oncologist and she was advised to come to the hospital. Also has a history of paroxysmal atrial fibrillation, she has been feeling herself in atrial fibrillation today, and at 1 point when she checked her vital signs her heart rate was around 150 this is while she had a fever. She has not been bleeding from anywhere but she does have lots of red spots on both of her forearms, and she is due for platelet transfusion tomorrow as an outpatient. Follows with Dr. Cueva H/O. [facility] Medical History Anemia Back pain Breast cancer (1999) Cardiology follow-up encounter Colon polyp Costal chondritis CPAP (continuous positive airway pressure) dependence Essential (primary) hypertension Former smoker Gout History of echocardiogram History of steroid therapy History of stress test Hyperlipidemia Meningeal tumor Obesity Paroxysmal atrial fibrillation Recurrent ventral hernia Recurrent ventral incisional hernia Seizures Sepsis (03/2020) Ventricular tachycardia (01/2020) Wears glasses Home Medications pravastatin 40 mg tablet 40 mg PO QHS 90 days #90 tabs 05/16/18 [History Last Taken Unknown] lisinopril 30 mg tablet 30 mg PO DAILY 01/26/20 [History Last Taken 09/17/21 06:12] loratadine 10 mg tablet (Allergy Relief (loratadine)) 10 mg PO DAILY PRN Allergies 05/23/21 [History Last Taken Unknown] flecainide 150 mg tablet 150 mg PO Q12H #60 tabs 03/11/22 [Rx Last Taken Unknown] omeprazole 40 mg capsule,delayed release 40 mg PO QHS #90 caps 03/13/22 [Rx Last Taken Unknown] Disability Placard #1 ea 04/23/22 [Rx Last Taken Unknown] acyclovir 800 mg tablet 800 mg PO DAILY 05/11/22 [History Last Taken Unknown] posaconazole 100 mg tablet,delayed release 300 mg PO DAILY 05/11/22 [History Last Taken Unknown] venetoclax 100 mg tablet (Venclexta) 1 tablet PO QHS PRN not taking right now 05/11/22 [History Last Taken Unknown] colchicine 0.6 mg capsule 0.6 mg PO DAILY 05/22/22 [History Last Taken Unknown] allopurinol 300 mg tablet 300 mg PO BID #60 tabs 05/28/22 [Rx Last Taken Unknown] metoprolol succinate 50 mg tablet,extended release 24 hr 100 mg PO BID #180 tabs 07/09/22 [Rx Last Taken Unknown] Multi Vitamin 1 tablet PO.IVFORM DAILY 07/10/22 [History Last Taken Unknown] Allergy/AdvReac Type Severity Reaction Status Date / Time No Known Allergies Allergy Verified 07/09/22 23:10 Family History Father Cancer lymphoma, prostate Hypertension High cholesterol Mother Colon cancer High cholesterol Hypertension Osteoporosis Sister Cancer endometrial, lung Surgical History H/O colonoscopy with polypectomy H/O excision of tumor of brain meninges (2013) History of appendectomy (03/2020) History of herniorrhaphy (03/2020) History of left heart catheterization (01/30/20) History of ventral hernia repair Incisional hernia Social History Smoking Status: Former smoker quit date: 03/15/93 pack-years: 14 alcohol intake: never substance use type: does not use caffeine: Yes Type: coffee Number of servings: 3 ROS ROS ED Constitutional Constitutional ED: Reports fever(s) and malaise; Denies chills Eyes Eyes: Denies change in vision or diplopia ENT ENT ED: Denies rhinorrhea or sore throat Cardiovascular Cardiovascular: Reports palpitations; Denies chest pain Respiratory/Chest Respiratory/Chest: Denies cough or dyspnea Gastrointestinal Gastrointestinal: Denies abdominal pain, diarrhea, nausea or vomiting Genitourinary Genitourinary ED: Denies dysuria or hematuria Musculoskeletal Musculoskeletal: Denies back pain or neck pain Integumentary Denies abscess or rash Neurologic Neurologic: Denies headache(s), paresthesias or weakness Psychiatric Psychiatric: Denies anxiety or suicidal thoughts Hematologic/Lymphatic Hematologic/Lymphatic: Reports easy bleeding and easy bruising EXAM Physical Exam Const Vital Signs: 07/09/22 23:08 07/10/22 01:32 07/10/22 01:32 Temperature 98.2 F 98.8 F Temperature Source Oral Oral Pulse Rate 105 H 155 H Respiratory Rate 18 20 H Respiratory Effort Normal Non-Labored Respiratory Pattern Normal Blood Pressure 108/86 H 127/84 H Blood Pressure Mean 93 98 Pulse Ox 98 99 Oxygen Delivery Method Room Air Room Air 07/10/22 01:34 Temperature Temperature Source Pulse Rate Respiratory Rate Respiratory Effort Respiratory Pattern Blood Pressure 127/84 H Blood Pressure Mean 98 Pulse Ox Oxygen Delivery Method Positive well nourished and well developed Constitutional Narrative: Well-appearing, conversive in full sentences no distress General Appearance ED: well developed and NAD HEENT Reports moist mucous membranes normocephalic and atraumatic Eyes PERRL and EOMs intact bilaterally Neck full ROM and supple Resp normal respiratory effort and clear to auscultation bilaterally Cardio no murmurs Rate: tachycardic Rhythm: abnormal rhythm irregularly irregular GI non-tender and non-distended Auscultation: normoactive bowel sounds Palpation: soft Back/Spine no CVA tenderness General Back: other FROM Extremity normal to inspection General Extremety ED: Negative for edema, pulses abnormal or tenderness General Extremity: Negative for edema or pulses abnormal Neuro oriented x3, CN's II-XII intact bilaterally and no sensory deficits noted Sensorium / Orientation: awake and alert Motor Exam: strength 5/5 throughout Skin no wounds Skin Narrative: Petechiae and some small patches of purpura on both forearms, but nowhere else. No other rashes. MDM MDM MDM Narrative Medical decision making narrative: Outpatient labs from today are reviewed. Her ANC is 0. I ordered a urinalysis to be obtained in addition to blood and urine cultures, and a lactic acid. She is able to drink fluids which she is doing in order to urinate since she went just prior to coming to the emergency department. After she does urinate and provide a specimen, empiric antibiotics to be given IV. Plan on admission. Also once we get the patient on the monitor, she appears to be in persistent A-fib with RVR at a rate in the 150 range, so we will treat that with Cardizem. It is noted that she is on both flecainide and metoprolol. On reevaluation, her rhythm changes normal sinus rhythm in the 80s, consistent with pharmacologic cardioversion. She is feeling better. History & Record Review Additional record(s) reviewed:: Prior labs Lab Data Attestation: I reviewed the patient's lab results. Labs: Laboratory Results - last 24 hr 07/10/22 07/10/22 00:40 00:58 Lactic Acid 1.2 Urine Color Yellow Urine Clarity Clear Urine pH 6.5 Ur Specific [place] 1.010 Urine Protein 100 H Urine Glucose (UA) Normal Urine Ketones Negative Urine Occult Blood 50 H Urine Nitrite Negative Urine Bilirubin 1 H Urine Urobilinogen 12 H Ur Leukocyte Esterase 25 H Urine RBC 0-5 SEEN Urine WBC 0-5 SEEN Ur Squamous Epith Cells 0-5 SEEN Urine Bacteria 1+ Hyaline Casts 0-5 SEEN Urine Mucus 0 SEEN Rhythm Strip Rhythm Strip: A-fib Rate: 155 Ectopy: None Management Discussion w/another healthcare provider: Hospitalist and Software Designer (H/O, Dr. Nieto) Critical Care Time Critical Care Time: Yes Critical care time (excluding procedures): 30-74 minutes (32 min), Including time spent:, Discussing w/Patient &/or Family/Press Shop Supervisor, Discussing w/Consultants, Arranging Admission or Transfer and Performing Direct Patient Care at Bedside Discharge Plan Dx/Rx/DC Orders Clinical Impression: Neutropenic fever, AML (acute myeloid leukemia), Paroxysmal atrial fibrillation, Pancytopenia, Atrial fibrillation with RVR Disposition Disposition: [facility]
[2022-07-10] VITALS (16 sets, daily range): BP systolic 110–138; BP diastolic 64–90; PULSE 55–155; RESP 16–20; TEMP 36.4–37.1; O2SAT 97–100; BMI 38.0
[2022-07-10 00:45] LABS: Mucous, Urine 0 SEEN /hpf (<or=2+)
[2022-07-10 00:46] LABS: Color, Urine Yellow (Yellow); Glucose, Dipstick Normal (Normal); Ketone-Dipstick Negative (Negative); Leukocyte Esterase-Dipstick 25 /ul (Negative); Nitrite-Dipstick Negative (Negative); Occult Blood-Urine 50 /ul (Negative); Protein-Dipstick 100 mg/dl (Negative); Urine Clarity Clear (Clear); Urine Urobilinogen 12 mg/dl (Normal); Urine pH 6.5 (5.0 - 8.0)
[2022-07-10 00:47] LABS: Urine Bilirubin Dipstick 1 mg/dL (Negative)
[2022-07-10 00:53] LABS: Bacteria 1+ /hpf (None Seen); Hyaline Cast 0-5 SEEN /lpf (0-5); Red Blood Cells-Urine 0-5 SEEN /hpf (0-5); Squamous Epithelial Cells - UA 0-5 SEEN /hpf (5-10); White Blood Cells 0-5 SEEN /hpf (0-5)
[2022-07-10 01:32] LABS: Lactic Acid 1.2 mmol/L (0.4-1.9)
[2022-07-10] MEDS: dilTIAZem 25 MG/5 ML Vial 20 MG IV BOLUS (02:19)
--- NOTE | 2022-07-10 02:41 | PCM.HP.STD ---
HPI - General General Date of Admission: 07/10/22 Date of Service: 07/10/22 Chief Complaint: Fever HPI Narrative LOVE LLANOS, is a 66 F with a significant history of hypertension; hyperlipidemia; obstructive sleep apnea on CPAP; and AML currently undergoing chemotherapy who presents to the emergency department with a fever. In regards to her AML patient follows up with both the [facility] at the [facility] and the [facility] [place] where her oncologist is Dr. Cueva. Initially her temperature at home was 100.2 Fahrenheit. Later on a temperature was 100.5 Fahrenheit. She called [facility] and she was instructed to go to her local emergency department. Subsequently she came to our( [facility]) emergency department. Also she reports that her heart was racing. Her heart rate was about 155. Of note on the day of presentation patient also went to see her special police and her metoprolol dosage was escalated. Patient was scheduled to have a platelet transfusion outpatient on 07/10/2022 because of thrombocytopenia. She was previously on Eliquis for A-fib but since April 27, 2022 she has not been on Eliquis secondary to thrombocytopenia from chemotherapy. At the ED emergency department doctor discussed the case with oncology on-call. [facility] Medical History Anemia Back pain Breast cancer (1999) Cardiology follow-up encounter Colon polyp Costal chondritis CPAP (continuous positive airway pressure) dependence Essential (primary) hypertension Former smoker Gout History of echocardiogram History of steroid therapy History of stress test Hyperlipidemia Meningeal tumor Obesity Paroxysmal atrial fibrillation Recurrent ventral hernia Recurrent ventral incisional hernia Seizures Sepsis (03/2020) Ventricular tachycardia (01/2020) Wears glasses Home Medications pravastatin 40 mg tablet 40 mg PO QHS 90 days #90 tabs 05/16/18 [History Last Taken Unknown] lisinopril 30 mg tablet 30 mg PO DAILY 01/26/20 [History Last Taken 09/17/21 06:12] loratadine 10 mg tablet (Allergy Relief (loratadine)) 10 mg PO DAILY PRN Allergies 05/23/21 [History Last Taken Unknown] flecainide 150 mg tablet 150 mg PO Q12H #60 tabs 03/11/22 [Rx Last Taken Unknown] omeprazole 40 mg capsule,delayed release 40 mg PO QHS #90 caps 03/13/22 [Rx Last Taken Unknown] Disability Placard #1 ea 04/23/22 [Rx Last Taken Unknown] acyclovir 800 mg tablet 800 mg PO DAILY 05/11/22 [History Last Taken Unknown] posaconazole 100 mg tablet,delayed release 300 mg PO DAILY 05/11/22 [History Last Taken Unknown] venetoclax 100 mg tablet (Venclexta) 1 tablet PO QHS PRN not taking right now 05/11/22 [History Last Taken Unknown] colchicine 0.6 mg capsule 0.6 mg PO DAILY 05/22/22 [History Last Taken Unknown] allopurinol 300 mg tablet 300 mg PO BID #60 tabs 05/28/22 [Rx Last Taken Unknown] metoprolol succinate 50 mg tablet,extended release 24 hr 100 mg PO BID #180 tabs 07/09/22 [Rx Last Taken Unknown] Multi Vitamin 1 tablet PO.IVFORM DAILY 07/10/22 [History Last Taken Unknown] Allergy/AdvReac Type Severity Reaction Status Date / Time No Known Allergies Allergy Verified 07/09/22 23:10 Family History Father Cancer lymphoma, prostate Hypertension High cholesterol Mother Colon cancer High cholesterol Hypertension Osteoporosis Sister Cancer endometrial, lung Surgical History H/O colonoscopy with polypectomy H/O excision of tumor of brain meninges (2013) History of appendectomy (03/2020) History of herniorrhaphy (03/2020) History of left heart catheterization (01/30/20) History of ventral hernia repair Incisional hernia Social History Smoking Status: Former smoker quit date: 03/15/93 pack-years: 14 alcohol intake: never substance use type: does not use caffeine: Yes Type: coffee Number of servings: 3 ROS ROS Narrative Pertinent positives and pertinent negatives as noted in HPI. All other systems were reviewed and are negative Vital Signs Vital Signs Vital Signs: 07/09/22 23:08 07/10/22 01:32 07/10/22 01:32 Temperature 98.2 F 98.8 F Temperature Source Oral Oral Pulse Rate 105 H 155 H Respiratory Rate 18 20 H Respiratory Effort Normal Non-Labored Respiratory Pattern Normal Blood Pressure 108/86 H 127/84 H Blood Pressure Mean 93 98 Pulse Ox 98 99 Oxygen Delivery Method Room Air Room Air 07/10/22 01:34 Temperature Temperature Source Pulse Rate Respiratory Rate Respiratory Effort Respiratory Pattern Blood Pressure 127/84 H Blood Pressure Mean 98 Pulse Ox Oxygen Delivery Method Weight Weight: 106.8 kg Body Mass Index (BMI) 39.2 Physical Exam Narrative Physical exam: General: Well-nourished, well-developed. Head: Normocephalic, atraumatic, no tenderness Eyes: Vision is grossly intact. EOMI ENT, no trauma, moist mucous membranes, no rhinorrhea Neck: Nontender, No thyromegaly. CVS: Regular rate and rhythm. S1-S2 present. No murmur, gallop or rub. Respiratory : clear to auscultation bilaterally, chest wall nontender Abdomen: Soft, nontender, nondistended, normal bowel sounds, no masses : Deferred Back: Nontender, no CVA tenderness, no midline spinal tenderness, deformities, step-offs Extremities: Nontender full range of motion, no trauma Skin: Normal color, no trauma, abrasions Neuro: Alert, oriented, cranial nerves II through XII grossly intact. Psychiatry: Normal mood. Normal affect. Not depressed. Not anxious. Results Lab / Micro Data Labs: Laboratory Results - last 24 hr 07/10/22 00:40: Urine Color Yellow, Urine Clarity Clear, Urine pH 6.5, Ur Specific [place] 1.010, Urine Protein 100 H, Urine Glucose (UA) Normal, Urine Ketones Negative, Urine Occult Blood 50 H, Urine Nitrite Negative, Urine Bilirubin 1 H, Urine Urobilinogen 12 H, Ur Leukocyte Esterase 25 H, Urine RBC 0-5 SEEN, Urine WBC 0-5 SEEN, Ur Squamous Epith Cells 0-5 SEEN, Urine Bacteria 1+, Hyaline Casts 0-5 SEEN, Urine Mucus 0 SEEN 07/10/22 00:58: Lactic Acid 1.2 Micro: Microbiology 07/10/22 01:15 Interface Orders SARS-CoV-2 Antigen (Rapid) - Final Rhythm Strip Rhythm Strip: A-fib Rate: 155 Ectopy: None Assessment & Plan Assessment/Plan (1) Neutropenic fever: (2) Pancytopenia: (3) Atrial fibrillation with RVR: PLAN: Plan Neutropenic fever Reported home temperature of Tmax 100.5 Fahrenheit. Lab reviewed showed ANC on presentation was 0. Reported that she is on outpatient days Granix with 3 more doses left after the time of presentation. Granix continued. Cefepime started emergency department and continued. Blood culture and urine culture was obtained at the emergency department and results are pending. Monitor Atrial fibrillation with RVR On the monitor at the ED patient was in A-fib with RVR. Received IV push Cardizem which converted patient initially from A-fib with RVR to sinus rhythm but occasionally she went back into A-fib/A flutter with controlled rate. Continue newly escalated dose of home metoprolol. Flecainide continued. Not a candidate of anticoagulation secondary to thrombocytopenia. Admits to PCU on telemetry. Pancytopenia Likely secondary to chemotherapy. Platelets is 10. Was scheduled outpatient platelet transfuduibthat will be ordered while inpatient. Anemia, stable, trend. DVT prophylaxis: SCDs ordered. Charges/Coding Visit Charges Inpatient E&M: 92852 Init Hosp L3
[2022-07-10] MEDS: Potassium Chloride Oral Tablet 20 MEQ 40 MEQ PO (05:25)
[2022-07-10] MEDS: Potassium Chloride 10mEq/100mL 10 MEQ/100 ML IV.SOLN. 100 MEQ IV BOLUS ×4 (05:25→10:20)
[2022-07-10] MEDS: 0.9% Saline Lock 10 ML Syringe IV ×2 (05:29→21:52)
[2022-07-10 05:42] LABS: Absolute Lymphocyte Count 0.64 X10^3/uL (0.83-4.51); Absolute Neutrophil Count 0.1 X10^3/uL (2.0-7.7); Basophil# 0.01 X10^3/uL; Basophil% 1.3 % (0-1); Eosinophil# 0.01 X10^3/uL; Eosinophils% 1.3 % (0-5); Hematocrit 30.7 % (37-47); Hemoglobin 9.6 g/dL (12.0-15.0); Lymphocyte # 0.64 X10^3/ul (0.83-4.51); Lymphocyte % 84.2 % (19-41); Mean Corp Hgb Conc 31.3 g/dL (32-36); Mean Corpuscular Hgb 30.1 pg (27.0-32.0); Mean Corpuscular Volume 96.2 fL (81-99); Monocyte# 0.03 X10^3/uL; Monocyte% 3.9 % (0-10); NRBC Flagged by Analyzer 0 % (0-5); Neutrophil # 0.06 X10^3/uL (2.7-7.7); POSITIVE COUNT YES; POSITIVE DIFFERENTIAL YES; POSITIVE MORPHOLOGY YES; RBC Distribution Width CV 19.9 % (11.6-14.6); RBC Distribution Width SD 68.1 fl (35.1-43.9); Red Blood Count 3.19 M/mm3 (4.2-5.4)
[2022-07-10 05:54] LABS: Differential Indicated SCAN CRITERIA MET; Platelet Count 8 K/mm3 (150-450); White Blood Count 0.8 K/mm3 (4.4-11.0)
[2022-07-10 05:57] LABS: Anion Gap 4 (5-15); BUN 14 mg/dL (7-18); BUN/Creat Ratio 18.4 RATIO (10-20); Calcium,Total 8.3 mg/dL (8.5-10.1); Chloride 110 mmol/L (98-107); Creatinine, Serum 0.76 mg/dL (0.55-1.02); EST Glomerular Filtration Rate 80 mL/min (>60); Est Glom Filt Rate - Afr Amer 97 mL/min (>60); Estimated Creatinine Clearance 50.41 ml/min; Glucose 94 mg/dL (74-106); Potassium 2.9 mmol/L (3.5-5.1); Sodium Level 141 mmol/L (136-145)
[2022-07-10 05:58] LABS: Magnesium 1.6 mg/dL (1.6-2.6)
--- NOTE | 2022-07-10 06:12 | PN.HOSP_ITS ---
Reason for Visit Reason for Visit: Diagnoses Other pancytopenia (07/10/22) Neutropenia, unspecified (07/10/22) Unspecified atrial fibrillation (07/10/22) Fever presenting with conditions classified elsewhere (07/10/22) Subjective Subjective Feeling much better today overall, no CP or SOB. Objective Data Objective Data Vital Signs: Vital Signs Temp Pulse Resp BP Pulse Ox O2 Del Method 98.4 F 95 18 136/85 H 100 Room Air 07/10/22 03:23 07/10/22 03:23 07/10/22 03:23 07/10/22 03:23 07/10/22 03:23 07/10/22 04:54 Oxygen Delivery Method Room Air Weight: 106.9 kg Body Mass Index (BMI) 38.0 Intake & Output: Intake and Output for Last 24 Hours 07/08/22 07/09/22 07/10/22 23:59 23:59 23:59 Intake Total 50 / 50 Balance 50 / 50 Lab / Micro Data Result Diagrams: 07/10/22 05:30 07/10/22 05:30 Labs: Laboratory Results - last 24 hr 07/09/22 08:43: Blood Type A POSITIVE 07/10/22 00:40: Urine Color Yellow, Urine Clarity Clear, Urine pH 6.5, Ur Specific [place] 1.010, Urine Protein 100 H, Urine Glucose (UA) Normal, Urine Ketones Negative, Urine Occult Blood 50 H, Urine Nitrite Negative, Urine Bilirubin 1 H, Urine Urobilinogen 12 H, Ur Leukocyte Esterase 25 H, Urine RBC 0- 5 SEEN, Urine WBC 0-5 SEEN, Ur Squamous Epith Cells 0-5 SEEN, Urine Bacteria 1+, Hyaline Casts 0-5 SEEN, Urine Mucus 0 SEEN 07/10/22 00:58: Lactic Acid 1.2 07/10/22 05:30: WBC 0.8 L*, RBC 3.19 L, Hgb 9.6 L, Hct 30.7 L, MCV 96.2, MCH 30.1, MCHC 31.3 L, RDW Std Deviation 68.1 H, RDW Coeff of Herman 19.9 H, Plt Count 8 L*, MPV TNP, Immature Gran % (Auto) 1.300 H, Neut % (Auto) 8.0 L, Lymph % (Auto) 84.2 H, [place] % (Auto) 3.9, Eos % (Auto) 1.3, Baso % (Auto) 1.3 H, Absolute Neuts (auto) 0.1 L, Absolute Lymphs (auto) 0.64 L, Nucleated RBC % 0 07/10/22 05:30: Sodium 141, Potassium 2.9 L, Chloride 110 H, Carbon Dioxide 27.0, Anion Gap 4 L, BUN 14, Creatinine 0.76, Estim Creat Clear Calc 50.41, Est GFR (MDRD) Af Amer 97, Est GFR (MDRD) Non-Af 80, BUN/Creatinine Ratio 18.4, Gl ucose 94, Calcium 8.3 L 07/10/22 05:30: Magnesium 1.6 Micro: Microbiology 07/10/22 01:15 Interface Orders SARS-CoV-2 Antigen (Rapid) - Final Rhythm Strip Rhythm Strip: A-fib Rate: 155 Ectopy: None Physical Exam Narrative General: Alert, oriented, no apparent distress HEENT: Atraumatic, normocephalic Eyes: Anicteric, normal conjunctiva, extraocular movements grossly intact Neck: Supple Respiratory: Clear to auscultation bilaterally, normal respiratory effort Cardiovascular: Regular rate GI: Soft, nontender, nondistended Extremities: No edema Musculoskeletal: Moving all extremities Neuro: No overt focal neurological deficits Skin: No rashes appreciated Psych: Cooperative Assessment & Plan Assessment/Plan (1) Neutropenic fever: (2) Pancytopenia: (3) Atrial fibrillation with RVR: PLAN: Plan #Neutropenic fever/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 Lab reviewed showed ANC on presentation was 0. Reported that she is on outpatient days Granix with 3 more doses left after the time of presentation. Granix continued. -Cefepime started emergency department and continued. -Follows Dr. Lozano on an outpatient basis, last saw Dr. Castillo yesterday in the office. -Continued on colchicine -Blood culture and urine culture was obtained at the emergency department and r esults are pending. Monitor -07/10: ANC 100 today, continue Granix. Cx pending, cont cefepime, azithro, poziconazole, poss d/c in next 1-2 days pending cultures and clinical stability. #Atrial fibrillation with RVR -In ED was in RVR on monitor -Received IV push Cardizem which converted patient initially from A-fib with RVR to sinus rhythm but occasionally she went back into A-fib/A flutter with controlled rate -Continue newly escalated dose of home metoprolol -Flecainide continued -Not a candidate of anticoagulation secondary to thrombocytopenia -07/10: Cont to monitor on telemetry, Presently doing well w/ rate control on metop sux 100 BID and flecainide. Electrolyte replacement #Hypokalemia -Replace, recheck BMP at 2 PM #Pancytopenia -Likely secondary to chemotherapy -Plt 10 -Was sched w/ outpt plat transfusion -07/10: Platelets 8, continue to monitor, no pharmacologic DVT prophylaxis DVT prophylaxis: SCDs ordered.
[2022-07-10 06:20] LABS: Differential Comment SCANNED; Platelet Estimate MKD DEC (ADEQ)
[2022-07-10] MEDS: TBO-FILGRASTIM 480 MCG/0.8 ML ML SC (09:07)
[2022-07-10] MEDS: Acyclovir 800 MG Tablet PO (09:11)
[2022-07-10] MEDS: Allopurinol 300 MG Tablet PO ×2 (09:11→15:39)
[2022-07-10] MEDS: Flecainide 150 MG Tablet PO ×2 (09:11→21:46)
[2022-07-10] MEDS: Lisinopril 10 MG Tablet 30 MG PO (09:11)
[2022-07-10] MEDS: Colchicine 0.6 MG TABLET PO (09:25)
[2022-07-10] MEDS: Metoprolol(XL)Succ 25 MG Tablet PO (09:46)
[2022-07-10] MEDS: POSACONAZOLE 100 MG TABLET.DR 300 MG PO (09:49)
--- NOTE | 2022-07-10 10:00 | EKG12_ITS ---
Test Reason : AFIB Blood Pressure : / mmHG Vent. Rate : 102 BPM Atrial Rate : 000 BPM P-R Int : 000 ms QRS Dur : 110 ms QT Int : 420 ms P-R-T Axes : 000 053 020 degrees QTc Int : 547 ms Atrial fibrillation with rapid ventricular response ST & T wave abnormality, consider anterior ischemia Prolonged QT Abnormal ECG When compared with ECG of 10-JUL-2022 05:30, MANUAL COMPARISON REQUIRED, DATA IS UNCONFIRMED Confirmed by SHANTELL GONSALES, JEREMIAS ([id number]), online editor YURY GREGORY ([id number]) on 07/14/2022 11:53:45 AM Referred By: DR FIGUEROA Confirmed By:JEREMIAS STINSON MD
--- NOTE | 2022-07-10 11:51 | CASEMGMT ---
Assessment- SW completed assessment with patient at bedside. Patient is alert and oriented X4. Patient's was also present. SW also confirmed contact information for patient and her emergency contacts. Living situation- Patient lives in a 1 story home with a ramp for entry. PCP: Jairo Romero Specialists: Dr Moore- Cardiology and Dr Cueva-Oncology Pharmacy: [facility] on [address] in [place] DME:? CPAP from [employer], wheelchair, walker, cane, and shower chair ADL's/IADL's: Patient is independent with all ADL's and IADL's. Patient's vacuums for patient as she is not allowed due to her picc line in her arm. Patient does drive. Past SNF/rehab: None Past HH: None LW: Yes POA:? Yes- Avtar is POA with Nadine as first alternate and Avtar [place]edo as second alternate. This is on file at [facility]. Plan: Patient and her do not anticipate needing anything at discharge. Karina Ivory [employer]
[2022-07-10 11:52] LABS: Pathologist Review Reviewed
[2022-07-10 14:27] LABS: Absolute Lymphocyte Count 0.73 X10^3/uL (0.83-4.51); Absolute Neutrophil Count 0.1 X10^3/uL (2.0-7.7); Basophil# 0.01 X10^3/uL; Basophil% 1.1 % (0-1); Eosinophil# 0.02 X10^3/uL; Eosinophils% 2.2 % (0-5); Hematocrit 31.2 % (37-47); Hemoglobin 9.6 g/dL (12.0-15.0); Lymphocyte # 0.73 X10^3/ul (0.83-4.51); Lymphocyte % 81.1 % (19-41); Mean Corp Hgb Conc 30.8 g/dL (32-36); Mean Corpuscular Hgb 29.9 pg (27.0-32.0); Mean Corpuscular Volume 97.2 fL (81-99); Monocyte# 0.03 X10^3/uL; Monocyte% 3.3 % (0-10); NRBC Flagged by Analyzer 0 % (0-5); Neutrophil % 11.2 % (47-70); POSITIVE COUNT YES; POSITIVE DIFFERENTIAL YES; POSITIVE MORPHOLOGY YES; Platelet Count 18 K/mm3 (150-450); RBC Distribution Width CV 19.9 % (11.6-14.6); RBC Distribution Width SD 68.6 fl (35.1-43.9); Red Blood Count 3.21 M/mm3 (4.2-5.4); White Blood Count 0.9 K/mm3 (4.4-11.0)
[2022-07-10 14:29] LABS: Differential Indicated SCAN CRITERIA MET
[2022-07-10 14:38] LABS: Anion Gap 4 (5-15); BUN 18 mg/dL (7-18); BUN/Creat Ratio 21.3 RATIO (10-20); Calcium,Total 8.6 mg/dL (8.5-10.1); Chloride 111 mmol/L (98-107); Creatinine, Serum 0.84 mg/dL (0.55-1.02); EST Glomerular Filtration Rate 71 mL/min (>60); Est Glom Filt Rate - Afr Amer 86 mL/min (>60); Estimated Creatinine Clearance 60.01 ml/min; Glucose 112 mg/dL (74-106); Potassium 3.5 mmol/L (3.5-5.1); Sodium Level 139 mmol/L (136-145)
[2022-07-10 14:50] LABS: Anisocytosis 2+; Hypochromasia 2+; Schistocytes RARE
[2022-07-10 14:51] LABS: Platelet Estimate MKD DEC (ADEQ)
[2022-07-10] MEDS: Metoprolol(XL)Succ 100 MG Tablet PO (21:44)
[2022-07-10] MEDS: Pantoprazole Sodium 40 MG Tablet PO (21:44)
[2022-07-10] MEDS: Pravastatin 40 MG Tablet PO (21:45)
[2022-07-11] VITALS (8 sets, daily range): BP systolic 123–141; BP diastolic 64–98; PULSE 59–138; RESP 16–18; TEMP 36.6–37.2; O2SAT 97–98
--- NOTE | 2022-07-11 01:18 | CPS ---
Pt has own cpap, using distilled water for humidity. set up by [employer].
--- NOTE | 2022-07-11 05:49 | EKG12_ITS ---
Test Reason : AM EKG Blood Pressure : / mmHG Vent. Rate : 052 BPM Atrial Rate : 052 BPM P-R Int : 212 ms QRS Dur : 100 ms QT Int : 498 ms P-R-T Axes : 019 017 014 degrees QTc Int : 463 ms Sinus bradycardia with sinus arrhythmia with 1st degree A-V block ST & T wave abnormality, consider anterior ischemia Abnormal ECG When compared with ECG of 07-JUL-2022 10:10, Sinus rhythm is no longer with 2nd degree A-V block ([place]ob[place] I) Vent. rate has decreased BY 46 BPM Confirmed by LUCA GONSALES, NAY ([id number]), school photograph editor YURY GREGORY ([id number]) on 07/13/2022 11:50:12 AM Referred By: ROSIE Confirmed By:GARRICK SEGOVIA MD
[2022-07-11] MEDS: Metoprolol Tartrate 5 MG/5 ML Vial 2.5 MG IV (08:16)
[2022-07-11] MEDS: 0.9% Saline Lock 10 ML Syringe IV (08:18)
[2022-07-11] MEDS: Acyclovir 800 MG Tablet PO (08:25)
[2022-07-11] MEDS: Allopurinol 300 MG Tablet PO ×2 (08:25→16:23)
[2022-07-11] MEDS: Lisinopril 10 MG Tablet 30 MG PO (08:25)
[2022-07-11] MEDS: POSACONAZOLE 100 MG TABLET.DR 300 MG PO (08:26)
[2022-07-11] MEDS: Flecainide 150 MG Tablet PO ×2 (08:27→20:35)
[2022-07-11] MEDS: Colchicine 0.6 MG TABLET PO (08:27)
[2022-07-11 08:41] LABS: Absolute Lymphocyte Count 0.66 X10^3/uL (0.83-4.51); Absolute Neutrophil Count 0.2 X10^3/uL (2.0-7.7); Basophil# 0.01 X10^3/uL; Basophil% 1.1 % (0-1); Eosinophil# 0.02 X10^3/uL; Eosinophils% 2.3 % (0-5); Hematocrit 32.6 % (37-47); Hemoglobin 10.1 g/dL (12.0-15.0); Lymphocyte # 0.66 X10^3/ul (0.83-4.51); Lymphocyte % 75.9 % (19-41); Mean Corpuscular Hgb 30.1 pg (27.0-32.0); Mean Corpuscular Volume 97.3 fL (81-99); Monocyte# 0.03 X10^3/uL; Monocyte% 3.4 % (0-10); NRBC Flagged by Analyzer 0 % (0-5); Neutrophil # 0.15 X10^3/uL (2.7-7.7); Neutrophil % 17.3 % (47-70); POSITIVE COUNT YES; POSITIVE DIFFERENTIAL YES; POSITIVE MORPHOLOGY YES; Platelet Count 11 K/mm3 (150-450); RBC Distribution Width CV 19.9 % (11.6-14.6); RBC Distribution Width SD 68.2 fl (35.1-43.9); Red Blood Count 3.35 M/mm3 (4.2-5.4)
[2022-07-11] MEDS: TBO-FILGRASTIM 480 MCG/0.8 ML ML SC (08:47)
[2022-07-11 08:58] LABS: ALB/GLOB Ratio 0.9 RATIO (0.9-2.4); AST(SGOT) 21 U/L (15-37); Alanine Aminotransfer ALT/SGPT 35 U/L (13-56); Albumin, Serum 2.8 g/dL (3.2-5.0); Alkaline Phosphatase 142 U/L (45-117); Anion Gap 8 (5-15); BUN 19 mg/dL (7-18); BUN/Creat Ratio 24.4 RATIO (10-20); Chloride 110 mmol/L (98-107); Creatinine, Serum 0.78 mg/dL (0.55-1.02); EST Glomerular Filtration Rate 78 mL/min (>60); Est Glom Filt Rate - Afr Amer 94 mL/min (>60); Estimated Creatinine Clearance 50.41 ml/min; Globulin 3.1 g/dL (2.2-4.2); Glucose 92 mg/dL (74-106); Magnesium 1.8 mg/dL (1.6-2.6); Potassium 3.4 mmol/L (3.5-5.1); Protein, Total 5.9 g/dL (6.4-8.2); Sodium Level 142 mmol/L (136-145)
[2022-07-11 09:00] LABS: Differential Indicated SCAN CRITERIA MET; White Blood Count 0.9 K/mm3 (4.4-11.0)
[2022-07-11 09:54] LABS: Differential Comment SCANNED; Platelet Estimate MKD DEC (ADEQ)
[2022-07-11 09:55] LABS: Anisocytosis 3+; Hypochromasia 1+; Macrocytosis 1+; Microcytosis 2+
[2022-07-11] MEDS: Magnesium Sulfate 4gm/100mL 4 GM/100 ML IV.SOLN. IV (10:00)
--- NOTE | 2022-07-11 10:48 | PCM.PN.HOSP ---
Reason for Visit Reason for Visit: Diagnoses Other pancytopenia (07/10/22) Neutropenia, unspecified (07/10/22) Unspecified atrial fibrillation (07/10/22) Fever presenting with conditions classified elsewhere (07/10/22) Subjective Subjective She had been feeling better however went back into A-fib with RVR this a.m. Objective Data Objective Data Vital Signs: Vital Signs Temp Pulse Resp BP Pulse Ox O2 Del Method 98 F 138 H 16 141/98 H 98 Room Air 07/11/22 03:35 07/11/22 08:16 07/11/22 03:35 07/11/22 08:16 07/11/22 09:13 07/11/22 09:13 Oxygen Delivery Method Room Air Weight: 106.9 kg Body Mass Index (BMI) 38.0 Intake & Output: Intake and Output for Last 24 Hours 07/09/22 07/10/22 07/11/22 23:59 23:59 23:59 Intake Total 1750 / 1750 Balance 1750 / 1750 Lab / Micro Data Result Diagrams: 07/11/22 08:10 07/11/22 08:10 Labs: Laboratory Results - last 24 hr 07/10/22 05:30: Diff Path Review Reviewed 07/10/22 14:15: Sodium 139, Potassium 3.5, Chloride 111 H, Carbon Dioxide 24.0, Anion Gap 4 L, BUN 18, Creatinine 0.84, Estim Creat Clear Calc 60.01, Est GFR (MDRD) Af Amer 86, Est GFR (MDRD) Non-Af 71, BUN/Creatinine Ratio 21.3 H, Glucose 112 H, Calcium 8.6 07/10/22 14:15: WBC 0.9 L*, RBC 3.21 L, Hgb 9.6 L, Hct 31.2 L, MCV 97.2, MCH 29.9, MCHC 30.8 L, RDW Std Deviation 68.6 H, RDW Coeff of Herman 19.9 H, Plt Count 18 L*, Immature Gran % (Auto) 1.100 H, Neut % (Auto) 11.2 L, Lymph % (Auto) 81.1 H, [place] % (Auto) 3.3, Eos % (Auto) 2.2, Baso % (Auto) 1.1 H, Absolute Neuts (auto) 0.1 L, Absolute Lymphs (auto) 0.73 L, Nucleated RBC % 0, Diff Path Review May indio, Platelet Estimate MKD DEC, Hypochromasia 2+, Anisocytosis 2+, Schistocytes RARE 07/11/22 08:10: WBC 0.9 L*, RBC 3.35 L, Hgb 10.1 L, Hct 32.6 L, MCV 97.3, MCH 30.1, MCHC 31.0 L, RDW Std Deviation 68.2 H, RDW Coeff of Herman 19.9 H, Plt Count 11 L*, Immature Gran % (Auto) 0.000, Neut % (Auto) 17.3 L, Lymph % (Auto) 75.9 H, [place] % (Auto) 3.4, Eos % (Auto) 2.3, Baso % (Auto) 1.1 H, Absolute Neuts (auto) 0.2 L, Absolute Lymphs (auto) 0.66 L, Nucleated RBC % 0, Differential Comment SCANNED, Diff Path Review [place] ind[place], Platelet Estimate MKD DEC, Hypochromasia 1+, Anisocytosis 3+, Microcytosis 2+, Macrocytosis 1+ 07/11/22 08:10: Sodium 142, Potassium 3.4 L, Chloride 110 H, Carbon Dioxide 24.0, Anion Gap 8, BUN 19 H, Creatinine 0.78, Estim Creat Clear Calc 50.41, Est GFR (MDRD) Af Amer 94, Est GFR (MDRD) Non-Af 78, BUN/Creatinine Ratio 24.4 H, Glucose 92, Calcium 9.0, Magnesium 1.8, Total Bilirubin 1.20 H, AST 21, ALT 35, Alkaline Phosphatase 142 H, Total Protein 5.9 L, Albumin 2.8 L, Globulin 3.1, Albumin/Globulin Ratio 0.9 Micro: Microbiology 07/10/22 00:40 Urine, Clean Catch Urine Culture - Final Mixed Gram Positive Organisms 07/10/22 01:15 Interface Orders SARS-CoV-2 Antigen (Rapid) - Final Rhythm Strip Rhythm Strip: A-fib Rate: 155 Ectopy: None Physical Exam Narrative General: Alert, oriented, no apparent distress HEENT: Atraumatic, normocephalic Eyes: Anicteric, normal conjunctiva, extraocular movements grossly intact Neck: Supple Respiratory: Clear to auscultation bilaterally, normal respiratory effort Cardiovascular: Regular rate at time of exam but then went into A-fib with RVR GI: Soft, nontender, nondistended Extremities: No edema Musculoskeletal: Moving all extremities Neuro: No overt focal neurological deficits Skin: No rashes appreciated Psych: Cooperative Assessment & Plan Assessment/Plan (1) Neutropenic fever: (2) Pancytopenia: (3) Atrial fibrillation with RVR: PLAN: Plan #Neutropenic fever/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 Lab reviewed showed ANC on presentation was 0. Reported that she is on outpatient days Granix with 3 more doses left after the time of presentation. Granix continued. -Cefepime started emergency department and continued. -Follows Dr. Lozano on an outpatient basis, last saw Dr. Castillo yesterday in the office. -Continued on colchicine -Blood culture and urine culture was obtained at the emergency department and results are pending. Monitor -07/10: ANC 100 today, continue Granix. Cx pending, cont cefepime, azithro, poziconazole, poss d/c in next 1-2 days pending cultures and clinical stability. -07/11: Urine with mixed gram-positive organisms felt to be contaminant. Blood cultures pending. Continue cefepime. Dose of Granix today and another tomorrow. #Atrial fibrillation with RVR -In ED was in RVR on monitor -Received IV push Cardizem which converted patient initially from A-fib with RVR to sinus rhythm but occasionally she went back into A-fib/A flutter with controlled rate -Continue newly escalated dose of home metoprolol -Flecainide continued -Not a candidate of anticoagulation secondary to thrombocytopenia -07/10: Cont to monitor on telemetry, Presently doing well w/ rate control on metop sux 100 BID and flecainide. Electrolyte replacement -07/11: Patient converts she becomes bradycardic, will attempt metoprolol at 75 twice daily with the flecainide, given 2.5 of IV Lopressor this a.m. as she went back into RVR. May need to consider additional agent or adjustments, may need to consult cardiology if continues to be uncontrolled. Will check echocardiogram as well to assess for any underlying pathology. Last echo 06/16/2021 structurally normal with an EF of 60%. #Hypokalemia -Replace #Pancytopenia -Likely secondary to chemotherapy -Plt 10 -Was sched w/ outpt plat transfusion -07/10: Platelets 8, continue to monitor, no pharmacologic DVT prophylaxis DVT prophylaxis: SCDs ordered. Charges/Coding Visit Charges Inpatient E&M: 25435 Subs Hosp L2
--- NOTE | 2022-07-11 10:51 | ECHOD_ITS ---
Reason For Study: AFib/Flutter Procedure This was a 2D Doppler, Color Flow transthoracic echocardiogram. Myocardial strain analysis was performed in this exam to aid in the assessment of cardiac function. Exam performed portable in patient room. Left Ventricle Normal LV size. Left ventricular systolic function is normal. The estimated ejection fraction is 55 %. Stage 3 diastolic dysfunction. No regional wall motion abnormalities noted. Right Ventricle Normal RV size. Normal systolic function. Atria Normal left atrium. Normal right atrium. Mitral Valve Bileaflet diffuse mitral valve thickening. Mild-Moderate (1-2+) eccentric mitral valve insufficiency. Tricuspid Valve Normal tricuspid valve. Moderate (2+) tricuspid valve insufficiency. Pulmonary artery systolic pressure is 60 mmHg. Aortic Valve Trisinus/trileaflet aortic valve. Mild (1+) aortic valve insufficiency. Pulmonic Valve Normal pulmonic valve. Great Vessels Normal aortic root. The pulmonary artery is normal size. Normal inferior vena cava. Pericardium/Pleural Small pericardial effusion. MMode/2D Measurements & Calculations LVIDd: 5.7 cm IVSd: 1.4 cm LA dimension: 4.8 cm LVIDs: 4.1 cm LVPWd: 1.1 cm FS: 27.2 % LAV(MOD-sp2): 55.7 ml Time Measurements MV dec time: 0.14 sec Doppler Measurements & Calculations MV E max lobito: 99.5 cm/sec Lat Peak E' Lobito: 7.7 cm/sec Med Peak E' Lobito: 7.9 cm/sec MV A max lobito: 45.7 cm/sec E/E' lat: 12.9 E/E' med: 12.5 MV E/A: 2.2 MV V2 max: 118.7 cm/sec Ao V2 max: 109.0 cm/sec MV max P.7 mmHg MV dec slope: 703.5 cm/sec2 Ao max P.8 mmHg MV V2 mean: 53.6 cm/sec Ao V2 mean: 75.8 cm/sec MV mean P.5 mmHg Ao mean P.6 mmHg MV V2 VTI: 32.7 cm Ao V2 VTI: 27.4 cm AV (velocity ratio): 0.97 LV V1 max: 103.2 cm/sec MR max lobito: 555.9 cm/sec PA V2 max: 72.2 cm/sec LV V1 max P.3 mmHg MR max P.6 mmHg PA V2 mean: 55.1 cm/sec LV V1 mean P.5 mmHg MR mean lobito: 447.7 cm/sec LV V1 mean: 74.8 cm/sec MR mean P.0 mmHg LV V1 VTI: 26.6 cm MR VTI: 213.0 cm TR max lobito: 373.5 cm/sec TR max P.8 mmHg ECHO/Echo Complete Interpretation Summary Normal LV size. Left ventricular systolic function is normal. The estimated ejection fraction is 55 %. Mild-Moderate (1-2+) eccentric mitral valve insufficiency. Moderate (2+) tricuspid valve insufficiency. Stage 3 diastolic dysfunction. Small pericardial effusion. The global longitudinal strain is mildly abnormal. Ordering Physician: Carol Ag Performed By: Sal Ruth RCS
[2022-07-11] MEDS: Potassium Chloride 10mEq/100mL 10 MEQ/100 ML IV.SOLN. 100 MEQ IV BOLUS ×2 (14:41→15:41)
[2022-07-11] MEDS: Metoprolol(XL)Succ 50 MG Tablet 75 MG PO (20:34)
[2022-07-11] MEDS: Pantoprazole Sodium 40 MG Tablet PO (20:35)
[2022-07-11] MEDS: Pravastatin 40 MG Tablet PO (20:35)
[2022-07-12] VITALS (7 sets, daily range): BP systolic 128–139; BP diastolic 66–75; PULSE 53–106; RESP 16–18; TEMP 36.3–37.6; O2SAT 97–100
[2022-07-12 06:01] LABS: Absolute Lymphocyte Count 0.66 X10^3/uL (0.83-4.51); Absolute Neutrophil Count 0.2 X10^3/uL (2.0-7.7); Basophil# 0.01 X10^3/uL; Basophil% 1.1 % (0-1); Eosinophil# 0.02 X10^3/uL; Eosinophils% 2.2 % (0-5); Hemoglobin 9.1 g/dL (12.0-15.0); Lymphocyte # 0.66 X10^3/ul (0.83-4.51); Lymphocyte % 71.7 % (19-41); Mean Corp Hgb Conc 31.4 g/dL (32-36); Mean Corpuscular Hgb 30.2 pg (27.0-32.0); Mean Corpuscular Volume 96.3 fL (81-99); Monocyte# 0.04 X10^3/uL; Monocyte% 4.3 % (0-10); NRBC Flagged by Analyzer 0 % (0-5); Neutrophil # 0.19 X10^3/uL (2.7-7.7); Neutrophil % 20.7 % (47-70); POSITIVE COUNT YES; POSITIVE DIFFERENTIAL YES; POSITIVE MORPHOLOGY YES; Platelet Count 7 K/mm3 (150-450); RBC Distribution Width SD 68.1 fl (35.1-43.9); Red Blood Count 3.01 M/mm3 (4.2-5.4); White Blood Count 0.9 K/mm3 (4.4-11.0)
[2022-07-12 06:07] LABS: Differential Indicated SCAN CRITERIA MET
--- NOTE | 2022-07-12 06:17 | NURSING ---
This RN notified primary RN Alee about platelet level of 7 and WBC of 0.92. Nadia ENNIS
[2022-07-12 06:38] LABS: ALB/GLOB Ratio 0.9 RATIO (0.9-2.4); AST(SGOT) 19 U/L (15-37); Alanine Aminotransfer ALT/SGPT 34 U/L (13-56); Albumin, Serum 2.7 g/dL (3.2-5.0); Alkaline Phosphatase 135 U/L (45-117); Anion Gap 6 (5-15); BUN 21 mg/dL (7-18); BUN/Creat Ratio 26.6 RATIO (10-20); Calcium,Total 8.6 mg/dL (8.5-10.1); Chloride 109 mmol/L (98-107); Creatinine, Serum 0.79 mg/dL (0.55-1.02); EST Glomerular Filtration Rate 77 mL/min (>60); Est Glom Filt Rate - Afr Amer 93 mL/min (>60); Estimated Creatinine Clearance 50.41 ml/min; Glucose 95 mg/dL (74-106); Potassium 3.5 mmol/L (3.5-5.1); Protein, Total 5.7 g/dL (6.4-8.2); Sodium Level 140 mmol/L (136-145)
[2022-07-12 06:45] LABS: Anisocytosis 2+; Platelet Estimate MKD DEC (ADEQ)
[2022-07-12 06:46] LABS: Atypical Lymphocyte 1+ %
[2022-07-12] MEDS: Allopurinol 300 MG Tablet PO ×2 (09:00→17:51)
[2022-07-12] MEDS: 0.9% Saline Lock 10 ML Syringe IV (09:56)
[2022-07-12] MEDS: POSACONAZOLE 100 MG TABLET.DR 300 MG PO (09:56)
[2022-07-12] MEDS: Metoprolol(XL)Succ 50 MG Tablet 75 MG PO ×2 (09:57→20:40)
[2022-07-12] MEDS: Lisinopril 10 MG Tablet 30 MG PO (09:59)
[2022-07-12] MEDS: Colchicine 0.6 MG TABLET PO (09:59)
[2022-07-12] MEDS: Flecainide 150 MG Tablet PO ×2 (10:00→20:40)
[2022-07-12] MEDS: Acyclovir 800 MG Tablet PO (10:01)
[2022-07-12] MEDS: TBO-FILGRASTIM 480 MCG/0.8 ML ML SC (10:17)
--- NOTE | 2022-07-12 10:36 | PN.HOSP_ITS ---
Reason for Visit Reason for Visit: Diagnoses Other pancytopenia (07/10/22) Neutropenia, unspecified (07/10/22) Unspecified atrial fibrillation (07/10/22) Fever presenting with conditions classified elsewhere (07/10/22) Subjective Subjective Patient feeling fair today but still has had bursts of elevated heart rate. Did today report that she has a underarm lesion and a left groin lesion and gets these intermittently and they will eventually burst and drained and she forgot that she had 2 of them present Objective Data Objective Data Vital Signs: Vital Signs Temp Pulse Resp BP Pulse Ox O2 Del Method 97.4 F L 103 H 16 133/75 H 100 Room Air 07/12/22 02:29 07/12/22 09:57 07/12/22 02:29 07/12/22 09:57 07/12/22 02:29 07/12/22 08:51 Oxygen Delivery Method Room Air Weight: 106.9 kg Body Mass Index (BMI) 38.0 Intake & Output: Intake and Output for Last 24 Hours 07/10/22 07/11/22 07/12/22 23:59 23:59 23:59 Intake Total 1750 / 1750 1840 / 1840 Balance 1750 / 1750 1840 / 1840 Lab / Micro Data Result Diagrams: 07/12/22 05:42 07/12/22 05:42 Labs: Laboratory Results - last 24 hr 07/12/22 05:42: WBC 0.9 L*, RBC 3.01 L, Hgb 9.1 L, Hct 29.0 L, MCV 96.3, MCH 30.2, MCHC 31.4 L, RDW Std Deviation 68.1 H, RDW Coeff of Herman 20.0 H, Plt Count 7 L*, Immature Gran % (Auto) 0.000, Neut % (Auto) 20.7 L, Lymph % (Auto) 71.7 H, [place] % (Auto) 4.3, Eos % (Auto) 2.2, Baso % (Auto) 1.1 H, Absolute Neuts (auto) 0.2 L, Absolute Lymphs (auto) 0.66 L, Nucleated RBC % 0, Diff Path Review May foll, Atypical Lymphocytes 1+, Platelet Estimate MKD DEC, Anisocytosis 2+ 07/12/22 05:42: Sodium 140, Potassium 3.5, Chloride 109 H, Carbon Dioxide 25.0, Anion Gap 6, BUN 21 H, Creatinine 0.79, Estim Creat Clear Calc 50.41, Est GFR (MDRD) Af Amer 93, Est GFR (MDRD) Non-Af 77, BUN/Creatinine Ratio 26.6 H, Glucose 95, Calcium 8.6, Total Bilirubin 0.90, AST 19, ALT 34, Alkaline Phosphatase 135 H, Total Protein 5.7 L, Albumin 2.7 L, Globulin 3.0, Albumin/Globulin Ratio 0.9 Micro: Microbiology 07/10/22 00:40 Urine, Clean Catch Urine Culture - Final Mixed Gram Positive Organisms 07/10/22 01:15 Interface Orders SARS-CoV-2 Antigen (Rapid) - Final Rhythm Strip Rhythm Strip: A-fib Rate: 155 Ectopy: None Physical Exam Narrative General: Alert, oriented, no apparent distress HEENT: Atraumatic, normocephalic Eyes: Anicteric, normal conjunctiva, extraocular movements grossly intact Neck: Supple Respiratory: Clear to auscultation bilaterally, normal respiratory effort Cardiovascular: Alternating between heart rate of low 50s and elevated heart rate GI: Soft, nontender, nondistended Extremities: No edema Musculoskeletal: Moving all extremities Neuro: No overt focal neurological deficits Skin: Had 2.2 erythematous fluctuant lesion in right axilla and 2 inch x 1 inch oval lesion on upper left thigh/groin area that was also fluctuant Psych: Cooperative Assessment & Plan Assessment/Plan (1) Neutropenic fever: (2) Pancytopenia: (3) Atrial fibrillation with RVR: PLAN: Plan #Neutropenic fever/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 Lab reviewed showed ANC on presentation was 0. Reported that she is on outpatient days Granix with 3 more doses left after the time of presentation. Granix continued. -Cefepime started emergency department and continued. -Follows Dr. Lozano on an outpatient basis, last saw Dr. Castillo yesterday in the office. -Continued on colchicine -Blood culture and urine culture was obtained at the emergency department and results are pending. Monitor -07/10: ANC 100 today, continue Granix. Cx pending, cont cefepime, azithro, poziconazole, poss d/c in next 1-2 days pending cultures and clinical stability. -07/11: Urine with mixed gram-positive organisms felt to be contaminant. Blood cultures pending. Continue cefepime. Dose of Granix today and another tomorrow. -07/12: Patient indicated that she had a lesion in right axilla and left upper thigh/groin, both of which are fluctuant. Cefepime continued and vancomycin added, surgery consulted for I&D and culture sent. Additionally platelets 7, platelet transfusion ordered given threshold less than 10 #Atrial fibrillation with RVR -In ED was in RVR on monitor -Received IV push Cardizem which converted patient initially from A-fib with RVR to sinus rhythm but occasionally she went back into A-fib/A flutter with controlled rate -Continue newly escalated dose of home metoprolol -Flecainide continued -Not a candidate of anticoagulation secondary to thrombocytopenia -07/10: Cont to monitor on telemetry, Presently doing well w/ rate control on metop sux 100 BID and flecainide. Electrolyte replacement -07/11: Patient converts she becomes bradycardic, will attempt metoprolol at 75 twice daily with the flecainide, given 2.5 of IV Lopressor this a.m. as she went back into RVR. May need to consider additional agent or adjustments, may need to consult cardiology if continues to be uncontrolled. Will check echocardiogram as well to assess for any underlying pathology. Last echo 06/16/2021 structurally normal with an EF of 60%. -07/12: Heart rate low 50s when sinus but still has periods of tachycardia. Echo ordered, cardiology consulted given her tachy/lilian as increasing beta-reji or adding Cardizem may help prevent further RVR however it would likely worsen bradycardia #Hypokalemia -Replace #Pancytopenia -Likely secondary to chemotherapy -Plt 10 -Was sched w/ outpt plat transfusion -07/12: Platelets 7, transfusion ordered DVT prophylaxis: SCDs ordered. Charges/Coding Visit Charges Inpatient E&M: 06524 Subs Hosp L2
--- NOTE | 2022-07-12 13:52 | PCM.RX.CS ---
Consult Pharmacy has been consulted to manage selected antiobiotic: Vancomycin Type of Consult: New start Suspected Infection: Other Labs: Sodium 140 mmol/L (136-145) 07/12/22 05:42 Potassium 3.5 mmol/L (3.5-5.1) 07/12/22 05:42 Chloride 109 mmol/L (98-107) H 07/12/22 05:42 Carbon Dioxide 25.0 mmol/L (21.0-32.0) 07/12/22 05:42 Anion Gap 6 (5-15) 07/12/22 05:42 BUN 21 mg/dL (7-18) H 07/12/22 05:42 Creatinine 0.79 mg/dL (0.55-1.02) 07/12/22 05:42 Est GFR (MDRD) Af Amer 93 mL/min (>60) 07/12/22 05:42 Est GFR (MDRD) Non-Af 77 mL/min (>60) 07/12/22 05:42 BUN/Creatinine Ratio 26.6 RATIO (10-20) H 07/12/22 05:42 Glucose 95 mg/dL (74-106) 07/12/22 05:42 Microbiology: Microbiology 07/10/22 01:20 Blood Culture (Wb) - Anticubital Left Blood Culture - Preliminary No growth in 48 hours. 07/10/22 00:58 Blood Culture (Wb) - Pic Blood Culture - Preliminary No growth in 48 hours. 07/10/22 00:40 Urine, Clean Catch Urine Culture - Final Mixed Gram Positive Organisms 07/10/22 01:15 Interface Orders SARS-CoV-2 Antigen (Rapid) - Final Goal Trough: 15-20 mcg/mL Pharmacy Plan for Drug Dosing: NEW START IV VANCOMYCIN Consulting Physician: Dr. Ag Indication: Infection R/O, neutropenia Goal Trough: 15-20 SrCr: 0.79 CrCl: 83 mL/min (using AdjBW) Comments: Loading dose 2g IV x1 ordered and administered 07/12/22 @1151 Vancomycin Dose: 1750mg IV Q12hr to start 07/13/22 @0000 Pending Level: 07/13/22 @2330, prior to 4th total dose per protocol Pharmacy Service will continue to monitor and adjust dosing as required.
--- NOTE | 2022-07-12 14:05 | EX.PCM.CON.S ---
Assessment & Plan Assessment/Plan (1) Abscess of skin or subcutaneous tissue: (2) AML (acute myeloid leukemia): QUALIFIERS: Leukemia Active/Remission status: in remission Qualified Code(s): C92.01 - Acute myeloblastic leukemia, in remission (3) Neutropenia: (4) Neutropenic fever: (5) Pancytopenia: PLAN: Plan Discussed with patient plan for incision and drainage of these 2 areas. Discussed procedure as well as risk of bleeding, need for further I&D. Patient no further question at this time. Rossana Melendez M.D. Pager: [phone] [facility] [address] [place] [address], Outpatient Pavilion, [address] [place] [address] Office: [phone] HPI Consult Data Date of Consult: 07/12/22 HPI Narrative Reason for Consultation: I&D of right axillary and left groin abscess HPI Narrative: LOVE LLANOS, is a 66 F who presented to the ER due to A-fib and fever of 104 at home. Patient had chemotherapy 2 weeks ago for AML but has not been able to have her next session which supposed to be last week due to her blood counts being low. Patient's white blood count 0.9 today and platelets are 7. Patient denies any further fevers in the hospital. Patient is on vancomycin IV. Patient states she does get these 2 areas in the right axilla and the left groin that get inflamed and typically will drain on their own. Patient states that she is remembered that these were irritated and currently not draining states it may have been like this for about 2 weeks. [facility] Medical History Anemia Back pain Breast cancer (1999) Cardiology follow-up encounter Colon polyp Costal chondritis CPAP (continuous positive airway pressure) dependence Essential (primary) hypertension Former smoker Gout History of echocardiogram History of steroid therapy History of stress test Hyperlipidemia Meningeal tumor Obesity Paroxysmal atrial fibrillation Recurrent ventral hernia Recurrent ventral incisional hernia Seizures Sepsis (03/2020) Ventricular tachycardia (01/2020) Wears glasses Home Medications pravastatin 40 mg tablet 40 mg PO QHS 90 days #90 tabs 05/16/18 [History Last Taken Unknown] lisinopril 30 mg tablet 30 mg PO DAILY 01/26/20 [History Last Taken 09/17/21 06:12] loratadine 10 mg tablet (Allergy Relief (loratadine)) 10 mg PO DAILY PRN Allergies 05/23/21 [History Last Taken Unknown] flecainide 150 mg tablet 150 mg PO Q12H #60 tabs 03/11/22 [Rx Last Taken Unknown] omeprazole 40 mg capsule,delayed release 40 mg PO QHS #90 caps 03/13/22 [Rx Last Taken Unknown] Disability Placard #1 ea 04/23/22 [Rx Last Taken Unknown] acyclovir 800 mg tablet 800 mg PO DAILY 05/11/22 [History Last Taken Unknown] posaconazole 100 mg tablet,delayed release 300 mg PO DAILY 05/11/22 [History Last Taken Unknown] venetoclax 100 mg tablet (Venclexta) 1 tablet PO QHS PRN not taking right now 05/11/22 [History Last Taken Unknown] colchicine 0.6 mg capsule 0.6 mg PO DAILY 05/22/22 [History Last Taken Unknown] allopurinol 300 mg tablet 300 mg PO BID #60 tabs 05/28/22 [Rx Last Taken Unknown] metoprolol succinate 50 mg tablet,extended release 24 hr 100 mg PO BID #180 tabs 07/09/22 [Rx Last Taken Unknown] Multi Vitamin 1 tablet PO.IVFORM DAILY 07/10/22 [History Last Taken Unknown] Allergy/AdvReac Type Severity Reaction Status Date / Time No Known Allergies Allergy Verified 07/09/22 23:10 Family History Father Cancer lymphoma, prostate Hypertension High cholesterol Mother Colon cancer High cholesterol Hypertension Osteoporosis Sister Cancer endometrial, lung Surgical History H/O colonoscopy with polypectomy H/O excision of tumor of brain meninges (2013) History of appendectomy (03/2020) History of herniorrhaphy (03/2020) History of left heart catheterization (01/30/20) History of ventral hernia repair Incisional hernia Social History Smoking Status: Former smoker quit date: 03/15/93 pack-years: 14 alcohol intake: never substance use type: does not use caffeine: Yes Type: coffee Number of servings: 3 ROS Constitutional Constitutional: Reports fever(s); Denies anorexia Eyes Eyes: Denies change in vision ENT HEENT: Denies dysphagia Cardiovascular Cardiovascular: Denies chest pain Respiratory/Chest Respiratory/Chest: Denies cough Gastrointestinal Gastrointestinal: Denies abdominal pain, nausea or vomiting Genitourinary Genitourinary: Denies dysuria Musculoskeletal Musculoskeletal: Denies joint swelling Integumentary Integumentary: Denies jaundice Neurologic Neurologic: Denies dizziness Psychiatric Psychiatric: Denies anxiety Endocrine Endocrinology: Reports palpitations Hematologic/Lymphatic Hematologic/Lymphatic: Reports easy bleeding and easy bruising Physical Exam Const alert, oriented x3 and no apparent distress HEENT normocephalic Neck supple Resp normal respiratory effort Effort and Inspection: able to speak in complete sentences Cardio Rate: regular rate GI soft to palpation, non-tender and non-distended Extremity full ROM Skin Skin Narrative: Right axillary and left groin abscesses. Right axillary area of fluctuance about a centimeter by a centimeter with surrounding erythema, tender to palpation, no current drainage. Left groin about 1.5 cm x 1.5 cm with more of a purplish discoloration still some tenderness to palpation-no drainage Neuro CN's II-XII intact bilaterally Lab / Micro Data Result Diagrams: 07/12/22 05:42 07/12/22 05:42 Labs: Laboratory Results - last 24 hr 07/12/22 05:42: WBC 0.9 L*, RBC 3.01 L, Hgb 9.1 L, Hct 29.0 L, MCV 96.3, MCH 30.2, MCHC 31.4 L, RDW Std Deviation 68.1 H, RDW Coeff of Herman 20.0 H, Plt Count 7 L*, Immature Gran % (Auto) 0.000, Neut % (Auto) 20.7 L, Lymph % (Auto) 71.7 H, [place] % (Auto) 4.3, Eos % (Auto) 2.2, Baso % (Auto) 1.1 H, Absolute Neuts (auto) 0.2 L, Absolute Lymphs (auto) 0.66 L, Nucleated RBC % 0, Diff Path Review May foll, Atypical Lymphocytes 1+, Platelet Estimate MKD DEC, Anisocytosis 2+ 07/12/22 05:42: Sodium 140, Potassium 3.5, Chloride 109 H, Carbon Dioxide 25.0, Anion Gap 6, BUN 21 H, Creatinine 0.79, Estim Creat Clear Calc 50.41, Est GFR (MDRD) Af Amer 93, Est GFR (MDRD) Non-Af 77, BUN/Creatinine Ratio 26.6 H, Glucose 95, Calcium 8.6, Total Bilirubin 0.90, AST 19, ALT 34, Alkaline Phosphatase 135 H, Total Protein 5.7 L, Albumin 2.7 L, Globulin 3.0, Albumin/Globulin Ratio 0.9 Micro: Microbiology 07/10/22 01:20 Blood Culture (Wb) - Anticubital Left Blood Culture - Preliminary No growth in 48 hours. 07/10/22 00:58 Blood Culture (Wb) - Pic Blood Culture - Preliminary No growth in 48 hours. 07/10/22 00:40 Urine, Clean Catch Urine Culture - Final Mixed Gram Positive Organisms Rhythm Strip Rhythm Strip: A-fib Rate: 155 Ectopy: None
--- NOTE | 2022-07-12 14:50 | PCM.OPRPT ---
Report of Operation Date of Procedure: 07/12/22 Pre-Operative Diagnosis: Right axillary and left groin abscess Post-Operative Diagnosis: Right axillary and left groin infected sebaceous cyst Surgery/Procedure Performed:: I&D of right axillary and left groin infected sebaceous cyst Surgeon: Rossana Melendez Type of Anesthesia: Local Specimen's removed: Wound culture of left axillary sebaceous infected cyst material Description of Procedure: Informed consent was obtained. Patient's right axillary and left groin were prepped and draped in a sterile fashion with Betadine. Incision was made with the 11 blade scalpel. [place] white material and small amount of purulent material was obtained from the right axillary site and only some chunky white material was obtained from the left groin cyst. These were both consistent with infected sebaceous cyst. Both areas were packed with iodoform to help with hemostasis as well as keep the skin open. Sites were dressed with 4 x 4 and tape. Patient does have platelets of 7 due to AML as well as chemotherapy 2 weeks ago. Patient tolerated procedure well. Complications none Procedures Integumentary 10xxx: [id number] Drainage of skin abscess
[2022-07-12] MEDS: Pantoprazole Sodium 40 MG Tablet PO (20:40)
[2022-07-12] MEDS: Pravastatin 40 MG Tablet PO (20:40)
[2022-07-13] VITALS (10 sets, daily range): BP systolic 113–148; BP diastolic 32–88; PULSE 55–78; RESP 14–18; TEMP 36.6–37.4; O2SAT 96–99
[2022-07-13 06:58] LABS: Absolute Lymphocyte Count 0.75 X10^3/uL (0.83-4.51); Absolute Neutrophil Count 0.2 X10^3/uL (2.0-7.7); Basophil# 0.01 X10^3/uL; Eosinophil# 0.02 X10^3/uL; Eosinophils% 1.9 % (0-5); Hematocrit 30.4 % (37-47); Hemoglobin 9.6 g/dL (12.0-15.0); Lymphocyte # 0.75 X10^3/ul (0.83-4.51); Lymphocyte % 72.8 % (19-41); Mean Corp Hgb Conc 31.6 g/dL (32-36); Mean Corpuscular Hgb 30.7 pg (27.0-32.0); Mean Corpuscular Volume 97.1 fL (81-99); Monocyte# 0.02 X10^3/uL; Monocyte% 1.9 % (0-10); NRBC Flagged by Analyzer 0 % (0-5); Neutrophil # 0.22 X10^3/uL (2.7-7.7); Neutrophil % 21.4 % (47-70); POSITIVE COUNT YES; POSITIVE DIFFERENTIAL YES; POSITIVE MORPHOLOGY YES; Platelet Count 15 K/mm3 (150-450); RBC Distribution Width CV 19.8 % (11.6-14.6); Red Blood Count 3.13 M/mm3 (4.2-5.4)
[2022-07-13 07:07] LABS: Differential Indicated SCAN CRITERIA MET
[2022-07-13 07:39] LABS: ALB/GLOB Ratio 0.8 RATIO (0.9-2.4); AST(SGOT) 23 U/L (15-37); Alanine Aminotransfer ALT/SGPT 32 U/L (13-56); Albumin, Serum 2.7 g/dL (3.2-5.0); Alkaline Phosphatase 156 U/L (45-117); Anion Gap 4 (5-15); BUN 21 mg/dL (7-18); BUN/Creat Ratio 27.5 RATIO (10-20); Calcium,Total 8.7 mg/dL (8.5-10.1); Chloride 110 mmol/L (98-107); Creatinine, Serum 0.76 mg/dL (0.55-1.02); EST Glomerular Filtration Rate 80 mL/min (>60); Est Glom Filt Rate - Afr Amer 97 mL/min (>60); Estimated Creatinine Clearance 50.41 ml/min; Globulin 3.3 g/dL (2.2-4.2); Glucose 92 mg/dL (74-106); Potassium 3.6 mmol/L (3.5-5.1); Sodium Level 139 mmol/L (136-145)
[2022-07-13 08:37] LABS: Differential Comment SCANNED
[2022-07-13 08:38] LABS: Anisocytosis 2+; Macrocytosis 1+; Microcytosis 1+; Platelet Estimate MKD DEC (ADEQ)
[2022-07-13] MEDS: Allopurinol 300 MG Tablet PO ×2 (08:40→16:49)
[2022-07-13] MEDS: Colchicine 0.6 MG TABLET PO (08:40)
[2022-07-13] MEDS: Lisinopril 10 MG Tablet 30 MG PO (08:41)
[2022-07-13] MEDS: Flecainide 150 MG Tablet PO ×2 (08:41→21:31)
[2022-07-13] MEDS: POSACONAZOLE 100 MG TABLET.DR 300 MG PO (08:41)
[2022-07-13] MEDS: Metoprolol(XL)Succ 50 MG Tablet 75 MG PO (08:41)
[2022-07-13] MEDS: Acyclovir 800 MG Tablet PO (08:42)
--- NOTE | 2022-07-13 08:50 | PCM.PN.SRG ---
Subjective Subjective Patient is a 66 y/o F I am following s/p I&D axillary and left groin abscesses by Dr. Melendez on 07/12. Patient notes minimal amount of discomfort in the two areas. Patient denies much drainage from the two areas. Objective Data Objective Data Vital Signs: Vital Signs Temp Pulse Resp BP Pulse Ox O2 Del Method 99.4 F H 65 14 135/62 H 96 Room Air 07/13/22 08:36 07/13/22 08:41 07/13/22 08:36 07/13/22 08:36 07/13/22 08:36 07/13/22 08:36 Oxygen Delivery Method Room Air Weight: 235 lb 10.786 oz Body Mass Index (BMI) 38.0 Intake & Output: Intake and Output for Last 24 Hours 07/11/22 07/12/22 07/13/22 23:59 23:59 23:59 Intake Total 1840 / 1840 1518.75 / 1518.75 535 / 535 Balance 1840 / 1840 1518.75 / 1518.75 535 / 535 Lab / Micro Data Result Diagrams: 07/13/22 06:45 07/13/22 06:45 Labs: Laboratory Results - last 24 hr 07/12/22 15:45: Blood Type A POSITIVE 07/13/22 06:45: WBC 1.0 L*, RBC 3.13 L, Hgb 9.6 L, Hct 30.4 L, MCV 97.1, MCH 30.7, MCHC 31.6 L, RDW Std Deviation 68.0 H, RDW Coeff of Herman 19.8 H, Plt Count 15 L*, Immature Gran % (Auto) 1.000 H, Neut % (Auto) 21.4 L, Lymph % (Auto) 72.8 H, [place] % (Auto) 1.9, Eos % (Auto) 1.9, Baso % (Auto) 1.0, Absolute Neuts (auto) 0.2 L, Absolute Lymphs (auto) 0.75 L, Nucleated RBC % 0, Differential Comment SCANNED, Diff Path Review May , Platelet Estimate MKD DEC, Anisocytosis 2+, Microcytosis 1+, Macrocytosis 1+ 07/13/22 06:45: Sodium 139, Potassium 3.6, Chloride 110 H, Carbon Dioxide 25.0, Anion Gap 4 L, BUN 21 H, Creatinine 0.76, Estim Creat Clear Calc 50.41, Est GFR (MDRD) Af Amer 97, Est GFR (MDRD) Non-Af 80, BUN/Creatinine Ratio 27.5 H, Glucose 92, Calcium 8.7, Total Bilirubin 0.90, AST 23, ALT 32, Alkaline Phosphatase 156 H, Total Protein 6.0 L, Albumin 2.7 L, Globulin 3.3, Albumin/Globulin Ratio 0.8 L Micro: Microbiology 07/10/22 01:20 Blood Culture (Wb) - Anticubital Left Blood Culture - Preliminary No growth in 48 hours. 07/10/22 00:58 Blood Culture (Wb) - Pic Blood Culture - Preliminary No growth in 48 hours. 07/10/22 00:40 Urine, Clean Catch Urine Culture - Final Mixed Gram Positive Organisms 07/10/22 01:15 Interface Orders SARS-CoV-2 Antigen (Rapid) - Final Rhythm Strip Rhythm Strip: A-fib Rate: 155 Ectopy: None Physical Exam Skin Skin Narrative: Right axilla- small open incision with minimal amount of bleeding. 4 x 4 cm dry gauze applied for dressing over top of open wound. Left groin- small open incision with minimal amount of bleeding. 4 x 4 cm dry gauze applied for dressing over top of open wound. Assessment & Plan Assessment/Plan (1) Abscess of skin or subcutaneous tissue: PLAN: Plan Continue to change dressing daily or more often if needed Recommend to follow-up next week with Dr. Melendez or myself for a quick evaluation of the incision sites.
--- NOTE | 2022-07-13 10:57 | CON.PCM.CA_ITS ---
Assessment & Plan Assessment/Plan (1) Atrial fibrillation with RVR: PLAN: Paroxysmal atrial fibrillation with rapid ventricular response rate. I suspect this is on the basis of the stress from her infection. I will recommend that we continue the current medical therapy with the same doses of the beta- reji and the flecainide. An echocardiogram should also be performed and depending on the findings further recommendations will be made. At this particular time I will not recommend any anticoagulation. Thank you for allowing me to participate in the care of your patient. Please don't hesitate to call if any issues arise. (2) Essential (primary) hypertension: PLAN: Her blood pressure appears to be under good control at this time the plan will be to continue the beta-reji, the amlodipine and the lisinopril. She is having an echocardiogram performed. HPI Consult Data Date of Consult: 07/13/22 HPI Narrative HPI Narrative: LOVE LLANOS, is a 66 F who presents for neutropenic fever and was noted to go into atrial fibrillation with rapid ventricular response rate.? She has a history of hypertension and a previous brief history of atrial fibrillation following surgery many years ago.? More recently she started having some palpitations which were present intermittently and she says that it is rather uncomfortable.? She denied associated shortness of breath or chest pain. She has had at least one documented episode of this atrial fibrillation with a EKG demonstrated an irregular regular heart rate.? She was able to terminate this by taking atenolol.? She also had a follow-up 48-hour Holter monitor performed which demonstrated predominantly sinus rhythm with an average heart rate of 62 bpm and no acute changes occasional supraventricular tachyarrhythmias were noted. 30-day event monitor from November?December 2019 showed 7 seconds of v entricular tachycardia.? She proceeded with a heart catheterization on 01/30/2020 that showed normal coronary arteries and an ejection fraction of 60%.? She presented with palpitations and was scheduled to have hernia surgery was noted to be in atrial fibrillation. She has been following up with the oncologist for acute myeloid leukemia undergoing treatment and not on anticoagulation therapy due to her blood counts. She does have an occasional palpation, and describes this as a fast heart beat. She denies chest pain, pressure or heaviness. She does have occasional SOB with elevated heart rates or walking fast.? She denies Orthopnea, and PND. She denies any bleeding issues; no blood in urine, stool or nosebleeds. She does acknowledge fatigue.? She denies myalgias, or claudication.? She does not have edema, or sudden weight gain. She does have an occasional lightheadedness with increased heart rates. She denies dizziness, syncopal or near syncopal episodes, and headaches. [facility] Medical History Anemia Back pain Breast cancer (1999) Cardiology follow-up encounter Colon polyp Costal chondritis CPAP (continuous positive airway pressure) dependence Essential (primary) hypertension Former smoker Gout History of echocardiogram History of steroid therapy History of stress test Hyperlipidemia Meningeal tumor Obesity Paroxysmal atrial fibrillation Recurrent ventral hernia Recurrent ventral incisional hernia Seizures Sepsis (03/2020) Ventricular tachycardia (01/2020) Wears glasses Home Medications pravastatin 40 mg tablet 40 mg PO QHS 90 days #90 tabs 05/16/18 [History Last Taken Unknown] lisinopril 30 mg tablet 30 mg PO DAILY 01/26/20 [History Last Taken 09/17/21 06:12] loratadine 10 mg tablet (Allergy Relief (loratadine)) 10 mg PO DAILY PRN Allergies 05/23/21 [History Last Taken Unknown] flecainide 150 mg tablet 150 mg PO Q12H #60 tabs 03/11/22 [Rx Last Taken Unknown] omeprazole 40 mg capsule,delayed release 40 mg PO QHS #90 caps 03/13/22 [Rx Last Taken Unknown] Disability Placard #1 ea 04/23/22 [Rx Last Taken Unknown] acyclovir 800 mg tablet 800 mg PO DAILY 05/11/22 [History Last Taken Unknown] posaconazole 100 mg tablet,delayed release 300 mg PO DAILY 05/11/22 [History Last Taken Unknown] venetoclax 100 mg tablet (Venclexta) 1 tablet PO QHS PRN not taking right now 05/11/22 [History Last Taken Unknown] colchicine 0.6 mg capsule 0.6 mg PO DAILY 05/22/22 [History Last Taken Unknown] allopurinol 300 mg tablet 300 mg PO BID #60 tabs 05/28/22 [Rx Last Taken Unknown] metoprolol succinate 50 mg tablet,extended release 24 hr 100 mg PO BID #180 tabs 07/09/22 [Rx Last Taken Unknown] Multi Vitamin 1 tablet PO.IVFORM DAILY 07/10/22 [History Last Taken Unknown] Allergy/AdvReac Type Severity Reaction Status Date / Time No Known Allergies Allergy Verified 07/09/22 23:10 Family History Father Cancer lymphoma, prostate Hypertension High cholesterol Mother Colon cancer High cholesterol Hypertension Osteoporosis Sister Cancer endometrial, lung Surgical History H/O colonoscopy with polypectomy H/O excision of tumor of brain meninges (2013) History of appendectomy (03/2020) History of herniorrhaphy (03/2020) History of left heart catheterization (01/30/20) History of ventral hernia repair Incisional hernia Social History Smoking Status: Former smoker quit date: 03/15/93 pack-years: 14 alcohol intake: never substance use type: does not use caffeine: Yes Type: coffee Number of servings: 3 ROS Constitutional Constitutional: Denies fever(s) or weight loss Eyes Eyes: Reports systems reviewed and no addt'l complaints, except as documented ENT HEENT: Reports systems reviewed and no addt'l complaints, except as documented Cardiovascular Cardiovascular: Denies chest pain at rest, chest pain with activity, dyspnea at rest, dyspnea on exertion, edema, palpitations or paroxysmal nocturnal dyspnea Respiratory/Chest Respiratory/Chest: Denies dyspnea on exertion, productive cough, shortness of breath at rest or shortness of breath with exertion Gastrointestinal Gastrointestinal: Denies change in bowel habits, nausea, vomiting or weight changes Genitourinary Genitourinary: Denies difficulty urinating Musculoskeletal Musculoskeletal: Denies joint stiffness or muscle weakness Integumentary Integumentary: Denies lesions Neurologic Neurologic: Denies dizziness or syncope Psychiatric Psychiatric: Denies anxiety Endocrine Endocrinology: Denies excessive sweating or fatigue Hematologic/Lymphatic Hematologic/Lymphatic: Denies anemia Allergic/Immunologic Allergic/Immunologic: Denies seasonal rhinorrhea Physical Exam Const alert, oriented x3 and no apparent distress General Appearance: cooperative HEENT hearing grossly normal bilaterally Head and Scalp: atraumatic Eyes EOMs intact bilaterally Neck General: normal visual inspection Chest inspection of chest normal and palpation of chest normal Resp normal respiratory effort Auscultation: clear to auscultation bilaterally Cardio regular rate, regular rhythm, S1 normal heart sound and S2 normal heart sound Jugular Venous Distention: JVD GI normal to inspection, nondistended, normoactive bowel sounds Extremity normal capillary refill and no pedal edema Peripheral Pulses: Yes pulses 2+ throughout and femoral pulses present Skin no rashes or lesions noted Neuro oriented x3 and CN's II-XII intact bilaterally Psych Appearance: grossly normal and appropriate Risk Stratification Risk Stratification Applicable: No Objective Data Vital Signs: Vital Signs Temp Pulse Resp BP Pulse Ox O2 Del Method 99.4 F H 65 14 135/62 H 96 Room Air 07/13/22 08:36 07/13/22 08:41 07/13/22 08:36 07/13/22 08:36 07/13/22 08:36 07/13/22 10:24 Oxygen Delivery Method Room Air Weight: 235 lb 10.786 oz Body Mass Index (BMI) 38.0 Intake & Output: Intake and Output for Last 24 Hours 07/11/22 07/12/22 07/13/22 23:59 23:59 23:59 Intake Total 1840 / 1840 1518.75 / 1518.75 635 / 635 Balance 1840 / 1840 1518.75 / 1518.75 635 / 635 Lab / Micro Data Result Diagrams: 07/13/22 06:45 07/13/22 06:45 Labs: Laboratory Results - last 24 hr 07/12/22 15:45: Blood Type A POSITIVE 07/13/22 06:45: WBC 1.0 L*, RBC 3.13 L, Hgb 9.6 L, Hct 30.4 L, MCV 97.1, MCH 30.7, MCHC 31.6 L, RDW Std Deviation 68.0 H, RDW Coeff of Herman 19.8 H, Plt Count 15 L*, Immature Gran % (Auto) 1.000 H, Neut % (Auto) 21.4 L, Lymph % (Auto) 72.8 H, [place] % (Auto) 1.9, Eos % (Auto) 1.9, Baso % (Auto) 1.0, Absolute Neuts (auto) 0.2 L, Absolute Lymphs (auto) 0.75 L, Nucleated RBC % 0, Differential Comment SCANNED, Diff Path Review May foll, Platelet Estimate MKD DEC, Anisocytosis 2+, Microcytosis 1+, Macrocytosis 1+ 07/13/22 06:45: Sodium 139, Potassium 3.6, Chloride 110 H, Carbon Dioxide 25.0, Anion Gap 4 L, BUN 21 H, Creatinine 0.76, Estim Creat Clear Calc 50.41, Est GFR (MDRD) Af Amer 97, Est GFR (MDRD) Non-Af 80, BUN/Creatinine Ratio 27.5 H, Glucose 92, Calcium 8.7, Total Bilirubin 0.90, AST 23, ALT 32, Alkaline Phosphatase 156 H, Total Protein 6.0 L, Albumin 2.7 L, Globulin 3.3, Albumin/Globulin Ratio 0.8 L Micro: Microbiology 07/12/22 14:45 Cyst - Skin Gram Stain - Final 07/10/22 01:20 Blood Culture (Wb) - Anticubital Left Blood Culture - Preliminary No growth in 48 hours. 07/10/22 00:58 Blood Culture (Wb) - Pic Blood Culture - Preliminary No growth in 48 hours. Rhythm Strip Rhythm Strip: A-fib Rate: 155 Ectopy: None Cardiology Labs/Tests 07/13/22 06:45: WBC 1.0 L*, RBC 3.13 L, Hgb 9.6 L, Hct 30.4 L, MCV 97.1, MCH 30.7, MCHC 31.6 L, Plt Count 15 L*, Immature Gran % (Auto) 1.000 H, Neut % (Auto) 21.4 L, Lymph % (Auto) 72.8 H, [place] % (Auto) 1.9, Eos % (Auto) 1.9, Baso % (Auto) 1.0, Absolute Neuts (auto) 0.2 L, Nucleated RBC % 0 07/13/22 06:45: Sodium 139, Potassium 3.6, Chloride 110 H, Carbon Dioxide 25.0, Anion Gap 4 L, BUN 21 H, Creatinine 0.76, Est GFR (MDRD) Af Amer 97, Est GFR (MDRD) Non-Af 80, BUN/Creatinine Ratio 27.5 H, Glucose 92, Calcium 8.7, Total Bilirubin 0.90 Rhythm: EKG: ECHO: Stress Test: Cardiac Cath: PCI: CT Surgery: Holter monitor: EPS: PPM: CXR: Chest CT Scan:
--- NOTE | 2022-07-13 14:24 | PCM.PROGNOTE ---
Subjective Subjective Patient seen and examined. SHe had no active complaints and felt very well. SHe denied any fever, chills, cough, chest pain, palpitations, dizziness, nausea, vomiting or diarrhea. REview of systems is otherwise negative.wbc is up to 1 and platelets are 15. Objective Data Objective Data Vital Signs: Vital Signs Temp Pulse Resp BP Pulse Ox O2 Del Method 99.4 F H 65 14 135/62 H 96 Room Air 07/13/22 08:36 07/13/22 08:41 07/13/22 08:36 07/13/22 08:36 07/13/22 08:36 07/13/22 10:24 Oxygen Delivery Method Room Air Weight: 235 lb 10.786 oz Body Mass Index (BMI) 38.0 Intake & Output: Intake and Output for Last 24 Hours 07/11/22 07/12/22 07/13/22 23:59 23:59 23:59 Intake Total 1840 / 1840 1518.75 / 1518.75 635 / 635 Balance 1840 / 1840 1518.75 / 1518.75 635 / 635 Lab / Micro Data Result Diagrams: 07/13/22 06:45 07/13/22 06:45 Labs: Laboratory Results - last 24 hr 07/12/22 15:45: Blood Type A POSITIVE 07/13/22 06:45: WBC 1.0 L*, RBC 3.13 L, Hgb 9.6 L, Hct 30.4 L, MCV 97.1, MCH 30.7, MCHC 31.6 L, RDW Std Deviation 68.0 H, RDW Coeff of Herman 19.8 H, Plt Count 15 L*, Immature Gran % (Auto) 1.000 H, Neut % (Auto) 21.4 L, Lymph % (Auto) 72.8 H, [place] % (Auto) 1.9, Eos % (Auto) 1.9, Baso % (Auto) 1.0, Absolute Neuts (auto) 0.2 L, Absolute Lymphs (auto) 0.75 L, Nucleated RBC % 0, Differential Comment SCANNED, Diff Path Review May , Platelet Estimate MKD DEC, Anisocytosis 2+, Microcytosis 1+, Macrocytosis 1+ 07/13/22 06:45: Sodium 139, Potassium 3.6, Chloride 110 H, Carbon Dioxide 25.0, Anion Gap 4 L, BUN 21 H, Creatinine 0.76, Estim Creat Clear Calc 50.41, Est GFR (MDRD) Af Amer 97, Est GFR (MDRD) Non-Af 80, BUN/Creatinine Ratio 27.5 H, Glucose 92, Calcium 8.7, Total Bilirubin 0.90, AST 23, ALT 32, Alkaline Phosphatase 156 H, Total Protein 6.0 L, Albumin 2.7 L, Globulin 3.3, Albumin/Globulin Ratio 0.8 L Micro: Microbiology 07/12/22 14:45 Cyst - Skin Gram Stain - Final 07/10/22 01:20 Blood Culture (Wb) - Anticubital Left Blood Culture - Preliminary No growth in 48 hours. 07/10/22 00:58 Blood Culture (Wb) - Pic Blood Culture - Preliminary No growth in 48 hours. 07/10/22 00:40 Urine, Clean Catch Urine Culture - Final Mixed Gram Positive Organisms 07/10/22 01:15 Interface Orders SARS-CoV-2 Antigen (Rapid) - Final Rhythm Strip Rhythm Strip: A-fib Rate: 155 Ectopy: None Physical Exam Const alert, oriented x3 and no apparent distress General Appearance: cooperative HEENT normocephalic, head/scalp atraumatic and moist oral mucous membranes Eyes PERRL and EOMs intact bilaterally Neck no lymphadenopathy and supple Lymph Lymphatic: no lymphadenopathy noted and no lymphedema noted Resp normal respiratory effort, normal air movement and clear to auscultation bilaterally Cardio regular rate, regular rhythm, S1 normal heart sound, S2 normal heart sound and no murmurs GI normal to inspection, nondistended, normoactive bowel sounds, soft to palpation, non-tender and non-distended Extremity normal capillary refill, no clubbing, cyanosis or edema and no calf tenderness Skin General Skin Exam: no breakdown Wound Narrative: axillary abscess has dressing in place Neuro CN's II-XII intact bilaterally and no focal motor deficits Coordination / Balance: [id number] test normal Motor Exam: strength 5/5 throughout Psych thought process normal and cooperative Appearance: appropriate Assessment & Plan Assessment/Plan (1) Abscess of skin or subcutaneous tissue: (2) AML (acute myeloid leukemia): QUALIFIERS: Leukemia Active/Remission status: in remission Qualified Code(s): C92.01 - Acute myeloblastic leukemia, in remission PLAN: Plan #Neutropenic fever Feels much better. Has received 7 days of subcu Granix. WBC is up to 1 today. On IV cefepime. Had I&D of right axilla and left upper thigh and groin abscess. On IV vancomycin and cefepime. Blood cultures negative. #Right axillary and left groin abscess: Status post I&D by general surgery. Currently on IV antibiotics. Will monitor. #Pancytopenia: Platelets up to 15 after she received a unit of platelets. Will monitor for now. Transfuse if platelets are less than 10. WBC is also up to 1. Received 7 days of subcu Granix. Will monitor and discuss with oncology about giving more Granix. #Neutropenia: WBC is up to 1 today. Had been around 0.8-0.9. Received 7 days of subcu Granix. will monitor and discuss with oncology about whether to give some more granix #Afib RVR has resolved. on flecainide cardiology consulted due to pateint also getting occasional bradycardia. 2D echo ordered and pending on flecainide and metoprolol 75mg bid #Hypokalemia: resolved. #History of AML: Being treated with chemotherapy. Follow-up with oncology once medically stable. Charges/Coding Visit Charges Inpatient E&M: 13439 Subs Hosp L2
--- NOTE | 2022-07-13 16:27 | CHAPLAIN ---
Type of Pastoral Visit _x__ Initial Visit ___ Follow-up Visit ___ On-call Visit ___ General Patient Visit ___ Spiritual Assessment ___ Family Conference ___ Bereavement ___ Rapid Response ___ Code Blue ___ Other (describe below) Pastoral Care Referral From _x__ Patient ___ Family ___ Nurse ___ Physician ___ Drupal Programmer ___ Tool Polishing Machine Operator ___ Other (describe below) Sacrament/Intervention _x__ Active listening ___ Anointing ___ Church ___ Bereavement ___ Communion _x__ Dawn exploration ___ _x__ Life review _x__ Prayer ___ Reconciliation ___ Sacrament of Sick ___ Supportive presence ___ Wedding ___ Other (describe below) Pastoral Comments patient, spouse, and in laws are in the room; pt is very talkative and animated about her situation, her dawn in [place], her love for people, mandaen, and family; pt has optimisitic outlook and illustrates dawn in God and whatever her outcome; spouse is affirming and vocal about this too; pt welcomes spiritual care and prayer
[2022-07-13] MEDS: Metoprolol(XL)Succ 50 MG Tablet PO (21:31)
[2022-07-13] MEDS: Pravastatin 40 MG Tablet PO (21:31)
[2022-07-13] MEDS: Pantoprazole Sodium 40 MG Tablet PO (21:31)
[2022-07-13] MEDS: 0.9% Saline Lock 10 ML Syringe IV (21:32)
[2022-07-14] VITALS (12 sets, daily range): BP systolic 126–145; BP diastolic 66–102; PULSE 51–146; RESP 16–18; TEMP 36.4–36.9; O2SAT 95–100
[2022-07-14 00:22] LABS: Vancomycin, Trough Level 20.4 ug/mL (5.0-15.0)
--- NOTE | 2022-07-14 00:49 | PCM.RX.CS ---
Consult Pharmacy has been consulted to manage selected antiobiotic: Vancomycin Type of Consult: Follow-up Prior Doses of Antibiotics Received/Current Regimen: Medications Vancomycin HCl 1,750 mg/ (Sodium Chloride) 535 mls @ 250 mls/hr IV Q12H JS Last Admin: 07/14/22 00:42 Dose: 250 mls/hr Labs: Sodium 139 mmol/L (136-145) 07/13/22 06:45 Potassium 3.6 mmol/L (3.5-5.1) 07/13/22 06:45 Chloride 110 mmol/L (98-107) H 07/13/22 06:45 Carbon Dioxide 25.0 mmol/L (21.0-32.0) 07/13/22 06:45 Anion Gap 4 (5-15) L 07/13/22 06:45 BUN 21 mg/dL (7-18) H 07/13/22 06:45 Creatinine 0.76 mg/dL (0.55-1.02) 07/13/22 06:45 Est GFR (MDRD) Af Amer 97 mL/min (>60) 07/13/22 06:45 Est GFR (MDRD) Non-Af 80 mL/min (>60) 07/13/22 06:45 BUN/Creatinine Ratio 27.5 RATIO (10-20) H 07/13/22 06:45 Glucose 92 mg/dL (74-106) 07/13/22 06:45 Vancomycin Trough 20.4 ug/mL (5.0-15.0) H 07/13/22 23:20 Microbiology: Microbiology 07/12/22 14:45 Cyst - Skin Gram Stain - Final 07/10/22 01:20 Blood Culture (Wb) - Anticubital Left Blood Culture - Preliminary No growth in 48 hours. 07/10/22 00:58 Blood Culture (Wb) - Pic Blood Culture - Preliminary No growth in 48 hours. 07/10/22 00:40 Urine, Clean Catch Urine Culture - Final Mixed Gram Positive Organisms 07/10/22 01:15 Interface Orders SARS-CoV-2 Antigen (Rapid) - Final Weight used for dosin.9 kg Estimated Creatinine Clearance: 87.6 Goal Trough: 15-20 mcg/mL Pharmacy Plan for Drug Dosing: Vancomycin trough level, drawn 11hrs post-dose, was 20.4 -just out of the target range of 15-20. Will continue dosing at 1750mg q12h, and re-draw a trough in two days. Pharmacy Service will continue to monitor and adjust dosing as required. Follow-Up Labs: Trough Vancomycin Labs to be done on [date and time ordered]: 07/15/22 @4220
[2022-07-14 07:07] LABS: Absolute Neutrophil Count 0.2 X10^3/uL (2.0-7.7); Eosinophil# 0.01 X10^3/uL; Hematocrit 27.4 % (37-47); Hemoglobin 8.6 g/dL (12.0-15.0); Lymphocyte % 76.2 % (19-41); Mean Corp Hgb Conc 31.4 g/dL (32-36); Mean Corpuscular Hgb 30.5 pg (27.0-32.0); Mean Corpuscular Volume 97.2 fL (81-99); Monocyte# 0.04 X10^3/uL; Monocyte% 3.8 % (0-10); NRBC Flagged by Analyzer 0 % (0-5); POSITIVE COUNT YES; POSITIVE DIFFERENTIAL YES; POSITIVE MORPHOLOGY YES; Platelet Count 9 K/mm3 (150-450); RBC Distribution Width CV 19.7 % (11.6-14.6); RBC Distribution Width SD 67.1 fl (35.1-43.9); Red Blood Count 2.82 M/mm3 (4.2-5.4); White Blood Count 1.1 K/mm3 (4.4-11.0)
[2022-07-14 07:11] LABS: Differential Indicated SCAN CRITERIA MET
[2022-07-14 07:38] LABS: ALB/GLOB Ratio 0.9 RATIO (0.9-2.4); AST(SGOT) 22 U/L (15-37); Alanine Aminotransfer ALT/SGPT 31 U/L (13-56); Albumin, Serum 2.6 g/dL (3.2-5.0); Alkaline Phosphatase 144 U/L (45-117); Anion Gap 4 (5-15); BUN 22 mg/dL (7-18); BUN/Creat Ratio 31.2 RATIO (10-20); Calcium,Total 8.4 mg/dL (8.5-10.1); Chloride 112 mmol/L (98-107); Creatinine, Serum 0.71 mg/dL (0.55-1.02); EST Glomerular Filtration Rate 87 mL/min (>60); Est Glom Filt Rate - Afr Amer 106 mL/min (>60); Estimated Creatinine Clearance 50.41 ml/min; Globulin 2.8 g/dL (2.2-4.2); Glucose 92 mg/dL (74-106); Potassium 3.6 mmol/L (3.5-5.1); Protein, Total 5.4 g/dL (6.4-8.2); Sodium Level 143 mmol/L (136-145)
[2022-07-14 07:42] LABS: Anisocytosis 2+; Differential Comment SCANNED; Macrocytosis 1+; Microcytosis 1+; Polychromasia RARE
[2022-07-14 07:43] LABS: Platelet Estimate MKD DEC (ADEQ)
[2022-07-14] MEDS: Allopurinol 300 MG Tablet PO ×2 (08:05→16:14)
[2022-07-14] MEDS: Colchicine 0.6 MG TABLET PO (08:05)
[2022-07-14] MEDS: POSACONAZOLE 100 MG TABLET.DR 300 MG PO (08:05)
[2022-07-14] MEDS: Lisinopril 10 MG Tablet 30 MG PO (08:05)
[2022-07-14] MEDS: Acyclovir 800 MG Tablet PO (08:05)
[2022-07-14] MEDS: Flecainide 150 MG Tablet PO ×2 (08:05→20:49)
[2022-07-14 09:43] LABS: Pathologist Review Reviewed
[2022-07-14 09:44] LABS: Pathologist Review Reviewed
[2022-07-14 09:44] LABS: Pathologist Review Reviewed
[2022-07-14] MEDS: Metoprolol(XL)Succ 50 MG Tablet PO ×2 (09:49→20:49)
--- NOTE | 2022-07-14 10:09 | PCM.PROGNOTE ---
Subjective Subjective Patient seen and examined. She feels very well and has no complaints. She had an uneventful night and symptoms otherwise negative. Platelets are down to 90 today but WBC is up to 1.1 with absolute neutrophil count of 200. Objective Data Objective Data Vital Signs: Vital Signs Temp Pulse Resp BP Pulse Ox O2 Del Method 98.1 F 55 L 18 138/71 H 99 Room Air 07/14/22 08:08 07/14/22 09:49 07/14/22 08:08 07/14/22 09:49 07/14/22 08:08 07/14/22 08:08 Oxygen Delivery Method Room Air Weight: 235 lb 10.786 oz Body Mass Index (BMI) 38.0 Intake & Output: Intake and Output for Last 24 Hours 07/12/22 07/13/22 07/14/22 23:59 23:59 23:59 Intake Total 1518.75 / 1518.75 1270 / 1270 535 / 535 Balance 1518.75 / 1518.75 1270 / 1270 535 / 535 Lab / Micro Data Result Diagrams: 07/14/22 06:15 07/14/22 06:15 Labs: Laboratory Results - last 24 hr 07/10/22 14:15: Diff Path Review Reviewed 07/11/22 08:10: Diff Path Review Reviewed 07/12/22 05:42: Diff Path Review Reviewed 07/13/22 23:20: Vancomycin Trough 20.4 H 07/14/22 06:15: WBC 1.1 L*, RBC 2.82 L, Hgb 8.6 L, Hct 27.4 L, MCV 97.2, MCH 30.5, MCHC 31.4 L, RDW Std Deviation 67.1 H, RDW Coeff of Herman 19.7 H, Plt Count 9 L*, Immature Gran % (Auto) 0.000, Neut % (Auto) 19.0 L, Lymph % (Auto) 76.2 H, [place] % (Auto) 3.8, Eos % (Auto) 1.0, Baso % (Auto) 0.0, Absolute Neuts (auto) 0.2 L, Absolute Lymphs (auto) 0.80 L, Nucleated RBC % 0, Differential Comment SCANNED, Diff Path Review May foll, Platelet Estimate MKD DEC, Polychromasia RARE, Anisocytosis 2+, Microcytosis 1+, Macrocytosis 1+ 05/02/23 06:15: Sodium 143, Potassium 3.6, Chloride 112 H, Carbon Dioxide 27.0, Anion Gap 4 L, BUN 22 H, Creatinine 0.71, Estim Creat Clear Calc 50.41, Est GFR (MDRD) Af Amer 106, Est GFR (MDRD) Non-Af 87, BUN/Creatinine Ratio 31.2 H, Glucose 92, Calcium 8.4 L, Total Bilirubin 0.60, AST 22, ALT 31, Alkaline Phosphatase 144 H, Total Protein 5.4 L, Albumin 2.6 L, Globulin 2.8, Albumin/Globulin Ratio 0.9 Micro: Microbiology 07/12/22 14:45 Cyst - Skin Gram Stain - Final 07/12/22 14:45 Cyst - Skin Wound Culture - Preliminary No growth-Final to follow 07/10/22 01:20 Blood Culture (Wb) - Anticubital Left Blood Culture - Preliminary No growth in 48 hours. 07/10/22 00:58 Blood Culture (Wb) - Pic Blood Culture - Preliminary No growth in 48 hours. 07/10/22 00:40 Urine, Clean Catch Urine Culture - Final Mixed Gram Positive Organisms 07/10/22 01:15 Interface Orders SARS-CoV-2 Antigen (Rapid) - Final Radiography Diagnostic Testing: Radiology Impression Echocardiogram 07/11/22 10:51 Interpretation Summary Normal LV size. Left ventricular systolic function is normal. The estimated ejection fraction is 55 %. Mild-Moderate (1-2+) eccentric mitral valve insufficiency. Moderate (2+) tricuspid valve insufficiency. Stage 3 diastolic dysfunction. Small pericardial effusion. The global longitudinal strain is mildly abnormal. Ordering Physician: Carol Ag Performed By: Sal Ruth RCS Rhythm Strip Rhythm Strip: A-fib Rate: 155 Ectopy: None Physical Exam Const alert, oriented x3 and no apparent distress General Appearance: cooperative HEENT normocephalic, head/scalp atraumatic, moist oral mucous membranes and oropharynx normal Eyes PERRL and EOMs intact bilaterally Neck no lymphadenopathy, supple and no JVD Lymph Lymphatic: no lymphadenopathy noted and no lymphedema noted Resp normal respiratory effort, normal air movement and clear to auscultation bilaterally Cardio regular rate, regular rhythm, S1 normal heart sound, S2 normal heart sound and no murmurs GI normal to inspection, nondistended, normoactive bowel sounds, soft to palpation, non-tender and non-distended Extremity normal capillary refill, no clubbing, cyanosis or edema and no calf tenderness Skin General Skin Exam: no breakdown Wound Narrative: axillary abscess has dressing in place Neuro CN's II-XII intact bilaterally, no focal motor deficits, no sensory deficits noted and deep tendon reflexes 2+ bilaterally Coordination / Balance: [id number] test normal Motor Exam: strength 5/5 throughout Psych thought process normal and cooperative Appearance: appropriate Assessment & Plan Assessment/Plan (1) Abscess of skin or subcutaneous tissue: (2) AML (acute myeloid leukemia): QUALIFIERS: Leukemia Active/Remission status: in remission Qualified Code(s): C92.01 - Acute myeloblastic leukemia, in remission PLAN: Plan #Neutropenic fever feels much better. WBC up to 1.1 today, with absolute neutrophil count of 200 Had I&D of right axilla and left upper thigh and groin abscess. On IV vancomycin and cefepime. Blood cultures negative. #Right axillary and left groin abscess: Status post I&D by general surgery. Currently on IV vanc and cefepime. Will monitor. #Pancytopenia: platelets down to 9 today. Will transfuse with one unit of platelets WBC is 1.1 with absolute neutrophil count being 200. Discussed with oncology yesterday and to keep on Granix until absolute neutrophil count is at least 8000. On subcu Granix 480 mg daily. Hemoglobin today is 8.6. #Neutropenia: WBC is up to 1 today. Had been around 0.8-0.9. Received 7 days of subcu Granix. will monitor and discuss with oncology about whether to give some more granix #Afib RVR has resolved. on flecainide cardiology consulted due to patient also getting occasional bradycardia. Cardiology recommends continuing her current medication on all, and any anticoagulation in light of her thrombocytopenia. 2D echo showed normal left ventricular systolic function with EF of 55% and stage III diastolic dysfunction as well as mildly abnormal global longitudinal strain on flecainide and metoprolol 75mg bid #Hypokalemia: resolved. #History of AML: Being treated with chemotherapy. Follow-up with oncology once medically stable. DVT prophylaxis: SCDs Total time spent on evaluation and management of patient, reviewing chart and specialist notes, discussing plan with patient and her , discussion with nursing and ancillary staff as well as documentation: 45 mins Disposition: Anticipate discharge over the next 24 to 48 hours once platelets are consistently above 10. Charges/Coding Visit Charges Inpatient E&M: 41175 Subs Hosp L2
[2022-07-14 12:36] LABS: Pathologist Review Reviewed
[2022-07-14 12:37] LABS: Pathologist Review Reviewed
--- NOTE | 2022-07-14 13:05 | PN.SURG_ITS ---
Subjective Subjective Patient states there is still some soreness with area where the tape is in the right axilla otherwise denies any issues. Objective Data Objective Data Vital Signs: Vital Signs Temp Pulse Resp BP Pulse Ox O2 Del Method 98.4 F 56 L 16 142/69 H 95 Room Air 07/14/22 12:50 07/14/22 12:50 07/14/22 12:50 07/14/22 12:50 07/14/22 12:50 07/14/22 12:50 Oxygen Delivery Method Room Air Weight: 235 lb 10.786 oz Body Mass Index (BMI) 38.0 Intake & Output: Intake and Output for Last 24 Hours 07/12/22 07/13/22 07/14/22 23:59 23:59 23:59 Intake Total 1518.75 / 1518.75 1270 / 1270 1115 / 1115 Balance 1518.75 / 1518.75 1270 / 1270 1115 / 1115 Lab / Micro Data Result Diagrams: 07/14/22 06:15 07/14/22 06:15 Labs: Laboratory Results - last 24 hr 07/10/22 14:15: Diff Path Review Reviewed 07/11/22 08:10: Diff Path Review Reviewed 07/12/22 05:42: Diff Path Review Reviewed 07/13/22 06:45: Diff Path Review Reviewed 07/13/22 23:20: Vancomycin Trough 20.4 H 07/14/22 06:15: WBC 1.1 L*, RBC 2.82 L, Hgb 8.6 L, Hct 27.4 L, MCV 97.2, MCH 30.5, MCHC 31.4 L, RDW Std Deviation 67.1 H, RDW Coeff of Herman 19.7 H, Plt Count 9 L*, Immature Gran % (Auto) 0.000, Neut % (Auto) 19.0 L, Lymph % (Auto) 76.2 H, [place] % (Auto) 3.8, Eos % (Auto) 1.0, Baso % (Auto) 0.0, Absolute Neuts (auto) 0.2 L, Absolute Lymphs (auto) 0.80 L, Nucleated RBC % 0, Differential Comment SCANNED, Diff Path Review Reviewed, Platelet Estimate MKD DEC, Polychromasia RARE, Anisocytosis 2+, Microcytosis 1+, Macrocytosis 1+ 07/14/22 06:15: Sodium 143, Potassium 3.6, Chloride 112 H, Carbon Dioxide 27.0, Anion Gap 4 L, BUN 22 H, Creatinine 0.71, Estim Creat Clear Calc 50.41, Est GFR (MDRD) Af Amer 106, Est GFR (MDRD) Non-Af 87, BUN/Creatinine Ratio 31.2 H, Glucose 92, Calcium 8.4 L, Total Bilirubin 0.60, AST 22, ALT 31, Alkaline Phosphatase 144 H, Total Protein 5.4 L, Albumin 2.6 L, Globulin 2.8, Albumin/Globulin Ratio 0.9 Micro: Microbiology 07/12/22 14:45 Cyst - Skin Gram Stain - Final 07/12/22 14:45 Cyst - Skin Wound Culture - Preliminary No growth-Final to follow 07/10/22 01:20 Blood Culture (Wb) - Anticubital Left Blood Culture - Prelim inary No growth in 48 hours. 07/10/22 00:58 Blood Culture (Wb) - Pic Blood Culture - Preliminary No growth in 48 hours. 07/10/22 00:40 Urine, Clean Catch Urine Culture - Final Mixed Gram Positive Organisms 07/10/22 01:15 Interface Orders SARS-CoV-2 Antigen (Rapid) - Final Radiography Diagnostic Testing: Radiology Impression Echocardiogram 07/11/22 10:51 Interpretation Summary Normal LV size. Left ventricular systolic function is normal. The estimated ejection fraction is 55 %. Mild-Moderate (1-2+) eccentric mitral valve insufficiency. Moderate (2+) tricuspid valve insufficiency. Stage 3 diastolic dysfunction. Small pericardial effusion. The global longitudinal strain is mildly abnormal. Ordering Physician: Carol Ag Performed By: Sal Ruth RCS Rhythm Strip Rhythm Strip: A-fib Rate: 155 Ectopy: None Physical Exam Narrative Right axilla I&D site healing well, left groin/proximal thigh I&D site also healing well. Assessment & Plan Assessment/Plan (1) Abscess of skin or subcutaneous tissue: (2) AML (acute myeloid leukemia): QUALIFIERS: Leukemia Active/Remission status: in remission Qualified Code(s): C92.01 - Acute myeloblastic leukemia, in remission (3) Neutropenia: (4) Neutropenic fever: (5) Pancytopenia: PLAN: Plan 2 I&D sites are healing well. Patient culture did not show any organisms which is likely because patient was already on antibiotics previously. Will use Telfa so hopefully does not pull any clot off when removing dressing especially in the left groin/upper thigh. Patient will follow-up as an outpatient next week. Rossana Melendez M.D. Pager: [phone] [facility] [address] [place] [address], [address] [place] [address] Office: [phone] Charges/Coding Visit Charges Inpatient E&M: 99315 Subs Hosp L2
[2022-07-14] MEDS: 0.9% Saline Lock 10 ML Syringe IV ×2 (15:02→22:21)
[2022-07-14] MEDS: TBO-FILGRASTIM 480 MCG/0.8 ML ML SC (20:47)
[2022-07-14] MEDS: Pravastatin 40 MG Tablet PO (20:49)
[2022-07-14] MEDS: Pantoprazole Sodium 40 MG Tablet PO (20:49)
--- NOTE | 2022-07-14 21:28 | PCM.HOSP.N ---
Hospitalist Note Patient with history of PAF, noted to be in PAF 1999, administered evening meds, sustained HR 140s, administering additional lopressor 5 mg IV x 1 now and IVF small bolus. If intractable will trial cardizem.
[2022-07-14] MEDS: Metoprolol Tartrate 5 MG/5 ML Vial IV (21:41)
[2022-07-14] MEDS: dilTIAZem 25 MG/5 ML Vial 20 MG IV BOLUS (22:21)
[2022-07-15] VITALS (9 sets, daily range): BP systolic 135–149; BP diastolic 75–88; PULSE 95–113; RESP 18–26; TEMP 36.1–36.7; O2SAT 96–99
[2022-07-15] MEDS: dilTIAZem 25 MG/5 ML Vial 10 MG IV BOLUS (00:30)
[2022-07-15 06:03] LABS: Absolute Lymphocyte Count 0.54 X10^3/uL (0.83-4.51); Absolute Neutrophil Count 0.4 X10^3/uL (2.0-7.7); Eosinophil# 0.02 X10^3/uL; Eosinophils% 2.1 % (0-5); Hemoglobin 9.1 g/dL (12.0-15.0); Lymphocyte # 0.54 X10^3/ul (0.83-4.51); Lymphocyte % 55.7 % (19-41); Mean Corp Hgb Conc 31.4 g/dL (32-36); Mean Corpuscular Hgb 30.3 pg (27.0-32.0); Mean Corpuscular Volume 96.7 fL (81-99); Monocyte# 0.04 X10^3/uL; Monocyte% 4.1 % (0-10); NRBC Flagged by Analyzer 0 % (0-5); Neutrophil # 0.36 X10^3/uL (2.7-7.7); Neutrophil % 37.1 % (47-70); POSITIVE COUNT YES; POSITIVE DIFFERENTIAL YES; POSITIVE MORPHOLOGY YES; Platelet Count 11 K/mm3 (150-450); RBC Distribution Width CV 19.2 % (11.6-14.6); RBC Distribution Width SD 65.1 fl (35.1-43.9)
[2022-07-15 06:17] LABS: Differential Indicated SCAN CRITERIA MET
[2022-07-15 06:31] LABS: Anisocytosis 2+; Platelet Estimate MKD DEC (ADEQ)
[2022-07-15 06:32] LABS: Atypical Lymphocyte 1+ %
[2022-07-15 06:49] LABS: ALB/GLOB Ratio 0.9 RATIO (0.9-2.4); AST(SGOT) 23 U/L (15-37); Alanine Aminotransfer ALT/SGPT 32 U/L (13-56); Albumin, Serum 2.7 g/dL (3.2-5.0); Alkaline Phosphatase 151 U/L (45-117); Anion Gap 7 (5-15); BUN 16 mg/dL (7-18); BUN/Creat Ratio 20.6 RATIO (10-20); Calcium,Total 8.7 mg/dL (8.5-10.1); Chloride 111 mmol/L (98-107); Creatinine, Serum 0.78 mg/dL (0.55-1.02); EST Glomerular Filtration Rate 78 mL/min (>60); Est Glom Filt Rate - Afr Amer 95 mL/min (>60); Estimated Creatinine Clearance 50.41 ml/min; Glucose 89 mg/dL (74-106); Potassium 3.3 mmol/L (3.5-5.1); Protein, Total 5.7 g/dL (6.4-8.2); Sodium Level 143 mmol/L (136-145)
[2022-07-15] MEDS: POSACONAZOLE 100 MG TABLET.DR 300 MG PO (09:08)
[2022-07-15] MEDS: Flecainide 150 MG Tablet PO ×2 (09:08→22:00)
[2022-07-15] MEDS: Acyclovir 800 MG Tablet PO (09:08)
[2022-07-15] MEDS: Potassium Chloride Oral Tablet 20 MEQ 40 MEQ PO ×2 (09:08→22:00)
[2022-07-15] MEDS: Lisinopril 10 MG Tablet 30 MG PO (09:09)
[2022-07-15] MEDS: Allopurinol 300 MG Tablet PO ×2 (09:09→16:04)
[2022-07-15] MEDS: Colchicine 0.6 MG TABLET PO (09:09)
[2022-07-15] MEDS: Metoprolol(XL)Succ 50 MG Tablet PO (09:09)
[2022-07-15] MEDS: TBO-FILGRASTIM 480 MCG/0.8 ML ML SC (09:10)
[2022-07-15] MEDS: Acetaminophen 325 MG Tablet 650 MG PO ×2 (09:19→17:54)
[2022-07-15] MEDS: Loperamide 2 MG Capsule PO (12:50)
--- NOTE | 2022-07-15 13:04 | PN_ITS ---
Subjective Subjective Patient seen and examined. She says she felt well this morning. However overnight she went into afib with RVR and required multiple doses of cardizem bolus. She has been intermittently tachycardic and heart rate improved following up into the 140s today. She has otherwise remained hemodynamically stable. Objective Data Objective Data Vital Signs: Vital Signs Temp Pulse Resp BP Pulse Ox O2 Del Method 97.9 F 95 18 135/75 H 97 Room Air 07/15/22 09:08 07/15/22 09:09 07/15/22 09:08 07/15/22 09:09 07/15/22 09:08 07/15/22 09:08 Oxygen Delivery Method Room Air Weight: 235 lb 10.786 oz Body Mass Index (BMI) 38.0 Intake & Output: Intake and Output for Last 24 Hours 07/13/22 07/14/22 07/15/22 23:59 23:59 23:59 Intake Total 1270 / 1270 2820 / 2820 635 / 635 Balance 1270 / 1270 2820 / 2820 635 / 635 Lab / Micro Data Result Diagrams: 07/15/22 05:12 07/15/22 05:12 Labs: Laboratory Results - last 24 hr 07/15/22 05:12: WBC 1.0 L*, RBC 3.00 L, Hgb 9.1 L, Hct 29.0 L, MCV 96.7, MCH 30.3, MCHC 31.4 L, RDW Std Deviation 65.1 H, RDW Coeff of Herman 19.2 H, Plt Count 11 L*, Immature Gran % (Auto) 1.000 H, Neut % (Auto) 37.1 L, Lymph % (Auto) 55.7 H, [place] % (Auto) 4.1, Eos % (Auto) 2.1, Baso % (Auto) 0.0, Absolute Neuts (auto) 0.4 L, Absolute Lymphs (auto) 0.54 L, Nucleated RBC % 0, Diff Path Review May foll, Atypical Lymphocytes 1+, Platelet Estimate MKD DEC, Anisocytosis 2+ 07/15/22 05:12: Sodium 143, Potassium 3.3 L, Chloride 111 H, Carbon Dioxide 25.0, Anion Gap 7, BUN 16, Creatinine 0.78, Estim Creat Clear Calc 50.41, Est GFR (MDRD) Af Amer 95, Est GFR (MDRD) Non-Af 78, BUN/Creatinine Ratio 20.6 H, Glucose 89, Calcium 8.7, Total Bilirubin 0.80, AST 23, ALT 32, Alkaline Phosphatase 151 H, Total Protein 5.7 L, Albumin 2.7 L, Globulin 3.0, Albumin/Globulin Ratio 0.9 Micro: Microbiology 07/12/22 14:45 Cyst - Skin Gram Stain - Final 07/12/22 14:45 Cyst - Skin Wound Culture - Final No growth aerobically. 07/12/22 14:45 Cyst - Skin Anaerobic Culture - Preliminary Checking for anaerobes, further studies to follow. 07/10/22 00:58 Blood Culture (Wb) - Pic Blood Culture - Final No growth in 5 days. 07/10/22 01:20 Blood Culture (Wb) - Anticubital Left Blood Culture - Final No growth in 5 days. 07/10/22 00:40 Urine, Clean Catch Urine Culture - Final Mixed Gram Positive Organisms 07/10/22 01:15 Interface Orders SARS-CoV-2 Antigen (Rapid) - Final Rhythm Strip Rhythm Strip: A-fib Rate: 155 Ectopy: None Physical Exam Const alert, oriented x3 and no apparent distress General Appearance: cooperative HEENT normocephalic, head/scalp atraumatic, moist oral mucous membranes and oropharynx normal Eyes PERRL and EOMs intact bilaterally Neck no lymphadenopathy, supple and no JVD Lymph Lymphatic: no lymphadenopathy noted and no lymphedema noted Resp normal respiratory effort, normal air movement and clear to auscultation bilaterally Cardio regular rate, regular rhythm, S1 normal heart sound, S2 normal heart sound and no murmurs GI normal to inspection, nondistended, normoactive bowel sounds, soft to palpation, non-tender and non-distended Extremity normal capillary refill, no clubbing, cyanosis or edema and no calf tenderness General Extremity: clubbing and cyanosis Skin General Skin Exam: no breakdown Wound Narrative: axillary abscess has dressing in place Neuro CN's II-XII intact bilaterally, no focal motor deficits, no sensory deficits noted and deep tendon reflexes 2+ bilaterally Coordination / Balance: [id number] test normal Motor Exam: strength 5/5 throughout Psych thought process normal and cooperative Appearance: appropriate Assessment & Plan Assessment/Plan (1) Abscess of skin or subcutaneous tissue: (2) AML (acute myeloid leukemia): QUALIFIERS: Leukemia Active/Remission status: in remission Qualified Code(s): C92.01 - Acute myeloblastic leukemia, in remission PLAN: Plan #Neutropenic fever * feels much better. * WBC is 1 today, with absolute neutrophil count of up to 540 * Had I&D of right axilla and left upper thigh and groin abscess. On IV vancomycin and cefepime. * Blood cultures negative. * will dc IV antibiotics today and switch to PO doxycycline * #Right axillary and left groin abscess: Status post I&D by general surgery. Currently on IV vanc and cefepime. Will monitor. #Pancytopenia: * platelets is 11 today.s/p transfusion of 2 units of PRBC * WBC is 1.1 with absolute neutrophil count being 200. Discussed with oncology yesterday and to keep on Granix until absolute neutrophil count is at least 1000. * On subcu Granix 480 mg daily. Hemoglobin today is 9.1 #Neutropenia: * WBC is up to 1 today. Had been around 0.8-0.9. * on sc granix * will monitor and discuss with oncology about whether to give some more granix * #Afib * went into RVR overnight * on flecainide * 2D echo showed normal left ventricular systolic function with EF of 55% and stage III diastolic dysfunction as well as mildly abnormal global longitudinal strain * on flecainide * Discussed with cardiology, will increase her metoprolol from 50 mg twice daily to 75 mg twice daily. * #Hypokalemia: Potassium is 3.3. Will replace and trend. #History of AML: Being treated with chemotherapy. Follow-up with oncology once medically stable. Has an appointment with oncology tomorrow DVT prophylaxis: SCDs Total time spent on evaluation and management of patient, reviewing chart and specialist notes, discussing plan with patient and her , discussion with nursing and ancillary staff as well as documentation: 43 mins Disposition: likely discharge tomorrow Charges/Coding Visit Charges Inpatient E&M: 42578 Subs Hosp L2
[2022-07-15] MEDS: Metoprolol(XL)Succ 25 MG Tablet PO (13:27)
--- NOTE | 2022-07-15 17:47 | CT_ITS ---
STUDY: CTA CHEST REASON FOR EXAM: Female, 66 years old. Atrial fibrillation, Rule out PE -- With contrast RADIATION DOSAGE (If Supplied By Facility): CTDIvol = ( 11.34 ) mGy, DLP = ( 531.13 ) mGycm TECHNIQUE: The examination was performed with the intravenous administration of 100mL Isovue-370. Post-processing of the angiographic images was performed, with multiplanar reformation and 3D reconstruction. Individualized dose optimization techniques were used for this CT. COMPARISON: Chest x-ray March 19, 2022 FINDINGS: Normal enhancement of the main pulmonary artery and right and left pulmonary arteries. Normal enhancement of the bilateral peripheral pulmonary arteries. There is no demonstrated pulmonary embolism. There is atherosclerotic calcification of the aortic arch. There is no demonstrated aortic dissection. There is a small pericardial effusion. There are calcified mediastinal and right hilar lymph nodes . Normal visualized trachea and bronchi. The lungs are well expanded. There is lower lung interstitial increased opacities and atelectasis. There is a calcified right upper lung granuloma. There are noncalcified nodules measuring 0.2 to 0.3 cm. Normal pleura. Normal chest wall structures. There are degenerative changes of thoracic spine. Normal visualized upper abdomen. CT/CTA Chest W/WO Contrast IMPRESSION: CTA chest examination, without a demonstrated pulmonary embolism or arterial dissection. Small pericardial effusion. Mild interstitial edema or infiltrates. Old granulomatous disease. Benign-appearing small pulmonary nodules. Electronically Signed: Ruddy Benavides MD at 19:04 EDT ,
--- NOTE | 2022-07-15 20:22 | PCM.HOSP.N ---
Hospitalist Note CTPA resulted with: CTA chest examination, without a demonstrated pulmonary embolism or arterial dissection. ? Small pericardial effusion. ? Mild interstitial edema or infiltrates. ? Old granulomatous disease. Benign-appearing small pulmonary nodules.
[2022-07-15 20:41] LABS: Magnesium 2.1 mg/dL (1.6-2.6); Potassium 3.4 mmol/L (3.5-5.1)
[2022-07-15] MEDS: Pravastatin 40 MG Tablet PO (22:00)
[2022-07-15] MEDS: Pantoprazole Sodium 40 MG Tablet PO (22:00)
[2022-07-15] MEDS: Metoprolol(XL)Succ 25 MG Tablet 75 MG PO (22:01)
[2022-07-16] VITALS (21 sets, daily range): BP systolic 117–149; BP diastolic 66–104; PULSE 79–152; RESP 14–26; TEMP 36.5–36.8; O2SAT 95–99
[2022-07-16 02:32] LABS: Absolute Lymphocyte Count 0.72 X10^3/uL (0.83-4.51); Absolute Neutrophil Count 0.4 X10^3/uL (2.0-7.7); Basophil# 0.01 X10^3/uL; Basophil% 0.8 % (0-1); Eosinophil# 0.02 X10^3/uL; Eosinophils% 1.6 % (0-5); Hematocrit 29.2 % (37-47); Hemoglobin 9.1 g/dL (12.0-15.0); Lymphocyte # 0.72 X10^3/ul (0.83-4.51); Lymphocyte % 57.1 % (19-41); Mean Corp Hgb Conc 31.2 g/dL (32-36); Mean Corpuscular Hgb 29.7 pg (27.0-32.0); Mean Corpuscular Volume 95.4 fL (81-99); Monocyte# 0.07 X10^3/uL; Monocyte% 5.6 % (0-10); NRBC Flagged by Analyzer 0 % (0-5); Neutrophil # 0.38 X10^3/uL (2.7-7.7); Neutrophil % 30.1 % (47-70); POSITIVE COUNT YES; POSITIVE DIFFERENTIAL YES; POSITIVE MORPHOLOGY YES; RBC Distribution Width CV 19.1 % (11.6-14.6); RBC Distribution Width SD 64.4 fl (35.1-43.9); Red Blood Count 3.06 M/mm3 (4.2-5.4)
[2022-07-16 02:36] LABS: Differential Indicated SCAN CRITERIA MET
[2022-07-16 02:40] LABS: Platelet Count 8 K/mm3 (150-450); White Blood Count 1.3 K/mm3 (4.4-11.0)
[2022-07-16 03:09] LABS: Vancomycin, Trough Level 15.2 ug/mL (5.0-15.0)
[2022-07-16 03:11] LABS: ALB/GLOB Ratio 0.9 RATIO (0.9-2.4); AST(SGOT) 21 U/L (15-37); Alanine Aminotransfer ALT/SGPT 33 U/L (13-56); Albumin, Serum 2.8 g/dL (3.2-5.0); Alkaline Phosphatase 147 U/L (45-117); Anion Gap 6 (5-15); BUN 17 mg/dL (7-18); Calcium,Total 8.9 mg/dL (8.5-10.1); Chloride 113 mmol/L (98-107); Creatinine, Serum 0.74 mg/dL (0.55-1.02); EST Glomerular Filtration Rate 83 mL/min (>60); Est Glom Filt Rate - Afr Amer 100 mL/min (>60); Estimated Creatinine Clearance 50.41 ml/min; Glucose 86 mg/dL (74-106); Potassium 3.8 mmol/L (3.5-5.1); Protein, Total 5.8 g/dL (6.4-8.2); Sodium Level 143 mmol/L (136-145)
[2022-07-16 03:58] LABS: Anisocytosis 2+; Platelet Estimate MKD DEC (ADEQ)
[2022-07-16] MEDS: Colchicine 0.6 MG TABLET PO (09:05)
[2022-07-16] MEDS: Metoprolol(XL)Succ 25 MG Tablet 75 MG PO (09:05)
[2022-07-16] MEDS: Allopurinol 300 MG Tablet PO ×2 (09:05→17:09)
[2022-07-16] MEDS: Flecainide 150 MG Tablet PO ×2 (09:06→21:20)
[2022-07-16] MEDS: POSACONAZOLE 100 MG TABLET.DR 300 MG PO (09:06)
[2022-07-16] MEDS: Lisinopril 10 MG Tablet 30 MG PO (09:06)
[2022-07-16] MEDS: Acyclovir 800 MG Tablet PO (09:06)
[2022-07-16 09:23] LABS: Pathologist Review Reviewed
[2022-07-16] MEDS: TBO-FILGRASTIM 480 MCG/0.8 ML ML SC (09:28)
[2022-07-16] MEDS: Metoprolol Tartrate 5 MG/5 ML Vial IV ×2 (13:04→17:40)
[2022-07-16] MEDS: 0.9% Saline Lock 10 ML Syringe IV ×3 (13:09→22:47)
--- NOTE | 2022-07-16 13:10 | PN_ITS ---
Subjective Subjective Patient seen and examined. She tells me she is feeling frustrated because her platelets arent coming up and her HR keeps going up when she exerts herself. She is requesting a transfer to [facility] Objective Data Objective Data Vital Signs: Vital Signs Temp Pulse Resp BP Pulse Ox O2 Del Method 98.0 F 152 H 20 H 127/96 H 98 Room Air 07/16/22 08:51 07/16/22 13:04 07/16/22 08:51 07/16/22 08:51 07/16/22 08:51 07/16/22 09:00 Oxygen Delivery Method Room Air Weight: 235 lb 10.786 oz Body Mass Index (BMI) 38.0 Intake & Output: Intake and Output for Last 24 Hours 07/14/22 07/15/22 07/16/22 23:59 23:59 23:59 Intake Total 2820 / 2820 1665 / 1665 Balance 2820 / 2820 1665 / 1665 Lab / Micro Data Result Diagrams: 07/16/22 02:20 07/16/22 02:20 Labs: Laboratory Results - last 24 hr 07/15/22 05:12: Diff Path Review Reviewed 07/15/22 20:12: Potassium 3.4 L, Magnesium 2.1 07/16/22 02:20: WBC 1.3 L*, RBC 3.06 L, Hgb 9.1 L, Hct 29.2 L, MCV 95.4, MCH 29.7, MCHC 31.2 L, RDW Std Deviation 64.4 H, RDW Coeff of Herman 19.1 H, Plt Count 8 L*, MPV TNP, Immature Gran % (Auto) 4.800 H, Neut % (Auto) 30.1 L, Lymph % (Auto) 57.1 H, [place] % (Auto) 5.6, Eos % (Auto) 1.6, Baso % (Auto) 0.8, Absolute Neuts (auto) 0.4 L, Absolute Lymphs (auto) 0.72 L, Nucleated RBC % 0, Diff Path Review July indio, Platelet Estimate MKD DEC, Anisocytosis 2+ 07/16/22 02:20: Sodium 143, Potassium 3.8, Chloride 113 H, Carbon Dioxide 24.0, Anion Gap 6, BUN 17, Creatinine 0.74, Estim Creat Clear Calc 50.41, Est GFR (MDRD) Af Amer 100, Est GFR (MDRD) Non-Af 83, BUN/Creatinine Ratio 23.0 H, Glucose 86, Calcium 8.9, Total Bilirubin 0.80, AST 21, ALT 33, Alkaline Phosphatase 147 H, Total Protein 5.8 L, Albumin 2.8 L, Globulin 3.0, Albumin/Globulin Ratio 0.9 07/16/22 02:20: Vancomycin Trough 15.2 H 07/16/22 08:40: Blood Type A POSITIVE Micro: Microbiology 07/12/22 14:45 Cyst - Skin Gram Stain - Final 07/12/22 14:45 Cyst - Skin Wound Culture - Final No growth aerobically. 07/12/22 14:45 Cyst - Skin Anaerobic Culture - Preliminary Checking for anaerobes, further studies to follow. 07/10/22 00:58 Blood Culture (Wb) - Pic Blood Culture - Final No growth in 5 days. 07/10/22 01:20 Blood Culture (Wb) - Anticubital Left Blood Culture - Final No growth in 5 days. 07/10/22 00:40 Urine, Clean Catch Urine Culture - Final Mixed Gram Positive Organisms 07/10/22 01:15 Interface Orders SARS-CoV-2 Antigen (Rapid) - Final Radiography Diagnostic Testing: Radiology Impression Chest CTA 07/15/22 17:47 IMPRESSION: CTA chest examination, without a demonstrated pulmonary embolism or arterial dissection. Small pericardial effusion. Mild interstitial edema or infiltrates. Old granulomatous disease. Benign-appearing small pulmonary nodules. Electronically Signed: Ruddy Benavides MD at 19:04 EDT Reading Location ID and State: [address] [place] [address] , Service support , Rhythm Strip Rhythm Strip: A-fib Rate: 155 Ectopy: None Physical Exam Const alert, oriented x3 and no apparent distress General Appearance: cooperative HEENT normocephalic, head/scalp atraumatic, moist oral mucous membranes and oropharynx normal Eyes PERRL and EOMs intact bilaterally Neck no lymphadenopathy, supple and no JVD Lymph Lymphatic: no lymphadenopathy noted and no lymphedema noted Resp normal respiratory effort, normal air movement and clear to auscultation bilaterally Cardio regular rhythm, S1 normal heart sound, S2 normal heart sound and no murmurs Cardio Narrative: tachycardic GI normal to inspection, nondistended, normoactive bowel sounds, soft to palpation, non-tender and non-distended Extremity normal capillary refill, no clubbing, cyanosis or edema and no calf tenderness General Extremity: clubbing and cyanosis Skin General Skin Exam: no breakdown Wound Narrative: axillary abscess has dressing in place Neuro CN's II-XII intact bilaterally, no focal motor deficits, no sensory deficits noted and deep tendon reflexes 2+ bilaterally Coordination / Balance: [id number] test normal Motor Exam: strength 5/5 throughout Psych thought process normal and cooperative Appearance: appropriate Assessment & Plan Assessment/Plan (1) Abscess of skin or subcutaneous tissue: (2) AML (acute myeloid leukemia): QUALIFIERS: Leukemia Active/Remission status: in remission Qualified Code(s): C92.01 - Acute myeloblastic leukemia, in remission PLAN: Plan #Neutropenic fever * feels much better. * WBC is 1.3 today, with absolute neutrophil count of 400 today. * Had I&D of right axilla and left upper thigh and groin abscess. On IV vancomycin and cefepime. * Blood cultures negative. * IV antibiotics discontinued * #Right axillary and left groin abscess: Status post I&D by general surgery. Completed a course of IV vancomycin and zosyn #Pancytopenia: * platelets down to 9 today.s/p transfusion of 2 units of platelets * will give another ynit of platelets today. * WBC is 1.1 with absolute neutrophil count being 400 today. Discussed with oncology yesterday and to keep on Granix until absolute neutrophil count is at least 1000. * On subcu Granix 480 mg daily. Hemoglobin today is 9.1 * she is now requesting transfer to [facility] * #Afib * HR still poorly controlled * on flecainide * 2D echo showed normal left ventricular systolic function with EF of 55% and stage III diastolic dysfunction as well as mildly abnormal global longitudinal strain * metoprolol increased to 75mg bid yesterday * she gets very tachycyardic with mild exertion. She did have a CTA of the chest yesterday which was negative for any evidence of PE and pneumonia * HR went up into the 150s today. Discussed with cardiology; she was given a dose of IV lopressor 5mg x 1, and then given IV amiodarone bolus 150mg x 1 * if HR remains poorly controlled,may need to start on an amiodarone drip. * #Hypokalemia: Potassium is 3.8. resolved. #History of AML: Being treated with chemotherapy. Being transferred to [facility] for further evaluation. DVT prophylaxis: SCDs Total time spent on evaluation and management of patient, reviewing chart and specialist notes, discussing plan with patient and her , discussion with nursing and ancillary staff as well as documentation: 43 mins Disposition:patient requesting transfer to [facility]. Patient auto-accepted after I spoke to transfer line. Transfer to PCU pending bed availability Charges/Coding Visit Charges Inpatient E&M: 52740 [facility] Hosp L3
[2022-07-16] MEDS: Acetaminophen 325 MG Tablet 650 MG PO (13:16)
[2022-07-16] MEDS: Metoprolol Tartrate 100 MG Tablet PO (18:45)
[2022-07-16] MEDS: Pantoprazole Sodium 40 MG Tablet PO (21:20)
[2022-07-16] MEDS: Pravastatin 40 MG Tablet PO (21:20)
[2022-07-17] VITALS: BP 133/85; PULSE 85; RESP 16; TEMP 36.6; O2SAT 97
[2022-07-17 00:34] VITALS: BP 133/76; PULSE 92; RESP 18; TEMP 36.4; O2SAT 99
[2022-07-17 04:00] VITALS: BP 143/97; PULSE 84; RESP 18; TEMP 36.6; O2SAT 97
--- NOTE | 2022-07-17 04:19 | NURSING ---
report called to [facility], report given to [facility] Novoa.
[2022-07-17 05:26] VITALS: BP 120/92; PULSE 98; RESP 18; TEMP 36.7; O2SAT 96
[2022-07-17 05:29] VITALS: BP 120/92; PULSE 98
[2022-07-17] MEDS: Metoprolol Tartrate 100 MG Tablet PO (05:29)
[2022-07-17 10:02] LABS: Pathologist Review Reviewed
--- NOTE | 2022-07-17 15:08 | DS.PCM_ITS ---
Providers Date of Admission: 07/10/22 Date of Discharge: 07/17/22 Primary Care Physician: Dr. Jairo Romero MD Consultations 07/12/22 10:36 Consult: Cardiology Routine Consulting Provider: Darlene Victoria Reason for Consult: Tachybrady EMERGENT Consult: No Notified: Yes Date Notified: 07/12/22 Time Notified: 10:57 Method of Notification: Text Consult: General Surgery Routine Consulting Provider: Rossana Melendez Reason for Consult: Left groin and R armpit fluctuant lesions, neutropenic fever, no other sour EMERGENT Consult: No MD Notified: Yes Date Notified: 07/12/22 Time Notified: 11:02 Method of Notification: Text Reason For Visit: NEUTROPENIC FEVER Diagnosis Discharge Diagnosis (1) Abscess of skin or subcutaneous tissue: Status: Acute Code(s): L02.91 - Cutaneous abscess, unspecified (2) AML (acute myeloid leukemia): Status: Acute Code(s): C92.00 - Acute myeloblastic leukemia, not having achieved remission Qualifiers: Leukemia Active/Remission status: in remission Qualified Code(s): C92.01 - Acute myeloblastic leukemia, in remission Plan #Neutropenic fever * feels much better. * WBC is 1.3 today, with absolute neutrophil count of 400 today. * Had I&D of right axilla and left upper thigh and groin abscess. On IV vancomycin and cefepime. * Blood cultures negative. * IV antibiotics discontinued * #Right axillary and left groin abscess: Status post I&D by general surgery. Completed a course of IV vancomycin and zosyn #Pancytopenia: * platelets down to 9 today.s/p transfusion of 2 units of platelets * will give another ynit of platelets today. * WBC is 1.1 with absolute neutrophil count being 400 today. Discussed with oncology yesterday and to keep on Granix until absolute neutrophil count is at least 1000. * On subcu Granix 480 mg daily. Hemoglobin today is 9.1 * she is now requesting transfer to [facility] * #Afib * HR still poorly controlled * on flecainide * 2D echo showed normal left ventricular systolic function with EF of 55% and stage III diastolic dysfunction as well as mildly abnormal global longitudinal strain * metoprolol increased to 75mg bid yesterday * she gets very tachycyardic with mild exertion. She did have a CTA of the chest yesterday which was negative for any evidence of PE and pneumonia * HR went up into the 150s today. Discussed with cardiology; she was given a dose of IV lopressor 5mg x 1, and then given IV amiodarone bolus 150mg x 1 * if HR remains poorly controlled,may need to start on an amiodarone drip. * #Hypokalemia: Potassium is 3.8. resolved. #History of AML: Being treated with chemotherapy. Being transferred to [facility] for further evaluation. DVT prophylaxis: SCDs Total time spent on evaluation and management of patient, reviewing chart and specialist notes, discussing plan with patient and her , discussion with nursing and ancillary staff as well as documentation: 43 mins Disposition:patient requesting transfer to [facility]. Patient auto-accepted after I spoke to transfer line. Transfer to PCU pending bed availability Medications at Discharge Home Medications pravastatin 40 mg tablet 40 mg PO QHS 90 days #90 tabs 05/16/18 lisinopril 30 mg tablet 30 mg PO DAILY 01/26/20 loratadine 10 mg tablet (Allergy Relief (loratadine)) 10 mg PO DAILY PRN Allergies 05/23/21 flecainide 150 mg tablet 150 mg PO Q12H #60 tabs 03/11/22 omeprazole 40 mg capsule,delayed release 40 mg PO QHS #90 caps 03/13/22 Disability Placard #1 ea 04/23/22 acyclovir 800 mg tablet 800 mg PO DAILY 05/11/22 posaconazole 100 mg tablet,delayed release 300 mg PO DAILY 05/11/22 venetoclax 100 mg tablet (Venclexta) 1 tablet PO QHS PRN not taking right now 05/11/22 colchicine 0.6 mg capsule 0.6 mg PO DAILY 05/22/22 allopurinol 300 mg tablet 300 mg PO BID #60 tabs 05/28/22 metoprolol succinate 50 mg tablet,extended release 24 hr 100 mg PO BID #180 tabs 07/09/22 Multi Vitamin 1 tablet PO.IVFORM DAILY 07/10/22 Hospital Course Operations None Procedures None Summary of Care Provided Minutes Spent on Discharge: 45 Hospital Course: Patient is a 66-year-old female with past medical history as outlined which includes AML currently undergoing chemotherapy. She came into the ED on 06/20/2022 with a complaint of a fever. She had been following up at the [facility] both at [facility] and at its affiliate in [place]. She said her temperature had been 100.2 at home but subsequently trended up to 100.5. She was told to come to the ED after she called [facility]. She also complained of tachycardia. She had seen her equipment associate on the day of admission and her metoprolol dose was increased. She was admitted and managed for neutropenic fever as well as A-fib with RVR. Her absolute neutrophil count was 0 at time of admission. She had been on Granix for 3 days prior to admission and Granix was continued. She was started on IV cefepime. Blood and urine cultures were also obtained. She was given Cardizem push for the A-fib with RVR. Her flecainide and metoprolol were continued. She was also treated for pancytopenia likely due to her AML and chemotherapy. Her blood cultures came back negative. She was found to have abscesses on upper extremities and she had I&D done by general surgery and was found to have infected sebaceous cyst. Cultures of the sebaceous cyst were also negative for any organisms. Patient's fever resolved but hospital course was complicated by recurrent tachycardia. Her metoprolol was increased back to 100 mg twice daily per cardiology. Her absolute neutrophil count was not trending upwards and she remained on Granix. Patient and subsequently opted to be transferred to [facility] because he felt frustrated that her heart rate was still poorly controlled and her white cell count was not coming up. This was discussed with oncology and cardiology. Patient was transferred to [facility] on 07/17/2022. Patient left early in the morning on 07/17/2022 and this hospitalist could not review and examined patient before she was discharged. Weight / BMI Weight Weight: 235 lb 10.786 oz Body Mass Index (BMI) 38.0 ABG / Lab / Microbiology Data Result Diagrams: 07/16/22 02:20 07/16/22 02:20 Laboratory: Laboratory Results - last 24 hr 07/16/22 02:20: Diff Path Review Reviewed 07/16/22 08:40: Blood Type A POSITIVE Microbiology: Microbiology 07/12/22 14:45 Cyst - Skin Gram Stain - Final 07/12/22 14:45 Cyst - Skin Wound Culture - Final No growth aerobically. 07/12/22 14:45 Cyst - Skin Anaerobic Culture - Final Anaerobic cocci 07/10/22 00:58 Blood Culture (Wb) - Pic Blood Culture - Final No growth in 5 days. 07/10/22 01:20 Blood Culture (Wb) - Anticubital Left Blood Culture - Final No growth in 5 days. 07/10/22 00:40 Urine, Clean Catch Urine Culture - Final Mixed Gram Positive Organisms 07/10/22 01:15 Interface Orders SARS-CoV-2 Antigen (Rapid) - Final Meaningful Use Info Meaningful Use Diagnoses (Choose all that apply): None applicable Discharge Plan Admission Admit Date/Time: 07/10/22 02:04 Attending Provider: Elana Henriquez Primary Care Provider: Jairo Romero Consulting Providers: Kasi Linn ; Darlene Victoria ; Rossana Melendez ; Carol Ag Discharge Orders/Prescriptions Prescriptions: No Action pravastatin 40 mg tablet 40 mg PO QHS 90 Days Qty: 90 loratadine [Allergy Relief (loratadine)] 10 mg tablet 10 mg PO DAILY PRN (Reason: Allergies) acyclovir 800 mg tablet 800 mg PO DAILY Label Comments: TAKE 1 TABLET BY MOUTH TWICE DAILY posaconazole 100 mg tablet,delayed release (DR/EC) 300 mg PO DAILY Venclexta 100 mg tablet 1 tablet PO QHS PRN (Reason: not taking right now) allopurinol 300 mg tablet 300 mg PO BID Qty: 60 1RF metoprolol succinate 50 mg tablet extended release 24 hr 100 mg PO BID Qty: 180 3RF Multi Vitamin 1 tablet PO.IVFORM DAILY lisinopril 30 mg tablet 30 mg PO DAILY flecainide 150 mg tablet 150 mg PO Q12H Qty: 60 11RF omeprazole 40 mg capsule,delayed release(DR/EC) 40 mg PO QHS Qty: 90 1RF (DME) Disability Placard See Rx Instructions .Route .MEDSUPPLY Qty: 1 0RF Rx Instructions: . colchicine 0.6 mg Capsule 0.6 mg PO DAILY Referrals / Follow Up: Jairo Romero MD [Primary Care Provider] - Disposition Disposition (needs filled in before D/C Order can be placed): Acute Care Hospital Charges/Coding Visit Charges Inpatient E&M: 04556 Disch Hosp >30min
== END 2022-07-17 07:10 | disposition short-term general hospital (02) | DRG 809 ==
LOC: ED 07-10 01:57 → PCU 07-10 02:47
PROVIDERS: Internal Medicine; Admitting Provider Hospitalist; Emergency Provider Emergency Medicine; PCP Family Medicine; Visit Provider Student in an Organized Health Care Education/Training Program
DX: D70.9 Neutropenia, unspecified (principal); C92.01 Acute myeloblastic leukemia, in remission; I31.39 Other pericardial effusion (noninflammatory); I48.92 Unspecified atrial flutter; L02.214 Cutaneous abscess of groin; L02.411 Cutaneous abscess of right axilla; D61.810 Antineoplastic chemotherapy induced pancytopenia; D69.6 Thrombocytopenia, unspecified; I48.0 Paroxysmal atrial fibrillation; E78.5 Hyperlipidemia, unspecified; I10 Essential (primary) hypertension; E87.6 Hypokalemia; L72.3 Sebaceous cyst; M10.9 Gout, unspecified; G47.33 Obstructive sleep apnea (adult) (pediatric); Z87.891 Personal history of nicotine dependence; T45.1X5A Adverse effect of antineoplastic and immunosuppressive drugs, initial encounter; Z79.899 Other long term (current) drug therapy; R50.81 Fever presenting with conditions classified elsewhere
CPT/HCPCS: 36415; 36592; 71275; 80048; 80053; 80202; 81001; 83605; 83615; 83735; 84132; 84550; 85025; 86900; 86901; 86965; 87040; 87070; 87075; 87086; 87088; 87205; 87811; 93005; 93306; 96372; 97803; 99284; J7040; J7050; P9035; P9037; Q9967; A4216; J1447

== ENCOUNTER 2022-09-06 09:57 | Outpatient (CLI) | payer MEDICARE, BC, SELFPAY ==
[2022-09-06 10:05] VITALS: BP 132/62; PULSE 70; RESP 16; TEMP 36.3; O2SAT 100
[2022-09-06] MEDS: TBO-FILGRASTIM 480 MCG/0.8 ML ML SC (10:15)
== END 2022-09-06 10:17 | disposition home or self-care (01) ==
LOC: MEDOUTP 10:01 → PCU 10:01
PROVIDERS: PCP Family Medicine; Referring Provider Internal Medicine Medical Oncology; Visit Provider Internal Medicine Medical Oncology
DX: D69.6 Thrombocytopenia, unspecified (principal)
CPT/HCPCS: 96372; J1447

== ENCOUNTER 2022-09-20 17:54 | Emergency (ER) | payer MEDICARE, BC, SELFPAY ==
[2022-09-20] VITALS (7 sets, daily range): BP systolic 101–140; BP diastolic 64–82; PULSE 92–136; RESP 14–24; TEMP 37.1–37.2; O2SAT 95–97; BMI 34.7
--- NOTE | 2022-09-20 18:07 | EKG12_ITS ---
Test Reason : A FIB Blood Pressure : / mmHG Vent. Rate : 117 BPM Atrial Rate : 000 BPM P-R Int : 000 ms QRS Dur : 110 ms QT Int : 320 ms P-R-T Axes : 000 009 -81 degrees QTc Int : 446 ms Atrial fibrillation with rapid ventricular response with premature ventricular or aberrantly conducte d complexes Minimal voltage criteria for LVH, may be normal variant ( [place] product ) Nonspecific ST and T wave abnormality Abnormal ECG Confirmed by SHANTELL GONSALES, JEREMIAS ([id number]), food editor YURY GREGORY ([id number]) on 09/22/2022 11:39:11 AM Referred By: TL Confirmed By:JEREMIAS STINSON MD
[2022-09-20] MEDS: Ondansetron 4 MG/2 ML Vial IV (18:14)
--- NOTE | 2022-09-20 18:18 | EX.ED.DYSGE1 ---
HPI History of Present Illness Chief Complaint: Fever Informant: patient and family Narrative Narrative: History of AML diagnosed this past March followed by. Last chemo 3 weeks ago has been held due to neutropenia. Today reported feeling feverish temp check was 98.4. Denies cough or congestion. Denies urinary symptoms. Yesterday had 3 loose stools. No recent antibiotics. None today. Has been having intermittent loose stools. Denies nausea vomiting prior to arrival or during exam had nausea symptoms. Denies any myalgias. History of paroxysmal A-fib states her anticoagulants were held since March due to to low platelets. Patient does take amiodarone and metoprolol states took it this morning. Denies chest pains. [facility] Medical History AML (acute myeloid leukemia) Anemia Back pain Breast cancer (1999) Cardiology follow-up encounter CINV (chemotherapy-induced nausea and vomiting) Colon polyp Costal chondritis CPAP (continuous positive airway pressure) dependence Diarrhea Essential (primary) hypertension Former smoker Gout History of echocardiogram History of steroid therapy History of stress test Hyperlipidemia Meningeal tumor Neutropenia Obesity Pancytopenia Paroxysmal atrial fibrillation Recurrent ventral hernia Recurrent ventral incisional hernia Seizures Sepsis (03/2020) Ventricular tachycardia (01/2020) Wears glasses Home Medications pravastatin 40 mg tablet 40 mg PO QHS 90 days #90 tabs 05/16/18 [History Last Taken Unknown] lisinopril 30 mg tablet 30 mg PO DAILY 01/26/20 [History Last Taken 09/17/21 06:12] loratadine 10 mg tablet (Allergy Relief (loratadine)) 10 mg PO DAILY PRN Allergies 05/23/21 [History Last Taken Unknown] omeprazole 40 mg capsule,delayed release 40 mg PO QHS #90 caps 03/13/22 [Rx Last Taken Unknown] Disability Placard #1 ea 04/23/22 [Rx Last Taken Unknown] acyclovir 800 mg tablet 800 mg PO DAILY 05/11/22 [History Last Taken Unknown] posaconazole 100 mg tablet,delayed release 300 mg PO DAILY 05/11/22 [History Last Taken Unknown] venetoclax 100 mg tablet (Venclexta) 1 tablet PO QHS PRN not taking right now 05/11/22 [History Last Taken Unknown] colchicine 0.6 mg capsule 0.6 mg PO DAILY 05/22/22 [History Last Taken Unknown] ursodiol 300 mg capsule 300 mg PO BID 07/21/22 [History Last Taken Unknown] allopurinol 300 mg tablet 600 mg PO DAILY 07/28/22 [History Last Taken Unknown] amiodarone 200 mg tablet 200 mg PO DAILY #90 tabs 07/28/22 [Rx Last Taken Unknown] metoprolol succinate 25 mg tablet,extended release 24 hr 25 mg PO BID #180 tabs 07/28/22 [Rx Last Taken Unknown] multivitamin 1 tab PO DAILY 07/28/22 [History Last Taken Unknown] tramadol 50 mg tablet 50 mg PO Q8H PRN Pain 07/28/22 [History Last Taken Unknown] loperamide 2 mg capsule 2 mg PO Q6H PRN 08/11/22 [History Last Taken Unknown] ondansetron 8 mg disintegrating tablet 8 mg PO Q8H PRN nausea and vomiting #30 tabs 08/11/22 [Rx Last Taken Unknown] amoxicillin 500 mg-potassium clavulanate 125 mg tablet (Augmentin) 1 tab PO BID #14 tabs 08/31/22 [Rx Last Taken Unknown] potassium chloride 20 mEq tablet,extended release 20 meq PO BID #60 tabs 09/14/22 [Rx Last Taken Unknown] Allergy/AdvReac Type Severity Reaction Status Date / Time No Known Allergies Allergy Verified 09/20/22 17:58 Family History Father Cancer lymphoma, prostate Hypertension High cholesterol Mother Colon cancer High cholesterol Hypertension Osteoporosis Sister Cancer endometrial, lung Surgical History H/O colonoscopy with polypectomy H/O excision of tumor of brain meninges (2013) History of appendectomy (03/2020) History of herniorrhaphy (03/2020) History of left heart catheterization (01/30/20) History of ventral hernia repair Incisional hernia Social History Smoking Status: Former smoker quit date: 03/15/93 pack-years: 14 alcohol intake: never substance use type: does not use caffeine: Yes Type: coffee Number of servings: 3 ROS ROS ED Constitutional Constitutional ED: Reports fever(s); Denies chills or sweats Eyes Eyes: Denies change in vision ENT ENT ED: Denies dysphagia or sore throat Cardiovascular Cardiovascular: Denies chest pain, leg edema, palpitations or racing heartbeat Respiratory/Chest Respiratory/Chest: Denies cough, dyspnea or dyspnea on exertion Gastrointestinal Gastrointestinal: Reports diarrhea, nausea and vomiting; Denies abdominal pain Genitourinary Genitourinary ED: Denies dysuria, hematuria or urinary frequency Musculoskeletal Musculoskeletal: Denies back pain, extremity pain or neck pain Integumentary Denies rash or wounds Neurologic Neurologic: Denies headache(s), paresthesias or weakness EXAM Physical Exam Const Vital Signs: 09/20/22 17:55 09/20/22 18:16 09/20/22 18:16 Temperature 98.9 F Temperature Source Temporal Pulse Rate 136 H Respiratory Rate 14 Respiratory Effort Normal Respiratory Pattern Normal Blood Pressure 140/76 H Blood Pressure Mean 97 Pulse Ox 95 Oxygen Delivery Method Room Air Room Air 09/20/22 18:16 09/20/22 18:54 09/20/22 19:09 Temperature Temperature Source Pulse Rate 119 H 110 H 107 H Respiratory Rate 22 H 18 20 H Respiratory Effort Respiratory Pattern Blood Pressure 122/66 H 101/64 Blood Pressure Mean 84 76 Pulse Ox 96 95 95 Oxygen Delivery Method Room Air Room Air Room Air 09/20/22 19:10 09/20/22 20:15 Temperature 98.7 F 98.9 F Temperature Source Oral Oral Pulse Rate 100 106 H Respiratory Rate 24 H 22 H Respiratory Effort Respiratory Pattern Blood Pressure 101/64 137/73 H Blood Pressure Mean 76 94 Pulse Ox 97 95 Oxygen Delivery Method Room Air Room Air Positive well nourished and well developed Constitutional Narrative: Nontoxic, during exam dry heaving General Appearance ED: well developed HEENT Reports moist mucous membranes normocephalic and atraumatic Eyes PERRL, EOMs intact bilaterally and conjunctivae normal General Eye ED: Yes normal appearance of both eyes Neck no lymphadenopathy and supple General: Negative for tenderness Chest Wall Chest: Negative for tenderness Resp normal respiratory effort and normal air movement Effort and Inspection: symmetric chest movement; Negative for respiratory distress Cardio Rate: tachycardic Rhythm: abnormal rhythm Peripheral Pulses: pulses 2+ throughout GI normal to inspection, nondistended, normoactive bowel sounds and non-tender Palpation: Negative for guarding or rebound tenderness present Back/Spine no CVA tenderness and no thoracic nor lumbar tenderness Extremity normal to inspection General Extremety ED: Negative for edema or tenderness General Extremity: Negative for edema Neuro oriented x3 and no sensory deficits noted Sensorium / Orientation: awake and alert Skin no rashes or lesions noted and no wounds MDM MDM MDM Narrative Medical decision making narrative: Interventions / MDM: Differential diagnosis: Neutropenia, A-fib with RVR, nausea and vomiting Diagnosis considered but do not suspect: My EKG interpretation: A-fib RVR rate of 117, no ST changes T wave inversions lateral leads V4 to V6. Last EKG 2 months ago with A-fib rate of 103. Imaging independently reviewed and interpreted by myself: 2 view chest x-ray: No acute process External documents reviewed: N/A Test considered but not ordered:N/A ED course: Patient A-fib with RVR fevers at home without dated temperature. Neutropenic labs will be ordered. Zofran gentle fluids for nausea and vomiting. IV Lopressor ordered for A-fib with RVR. 1924: Status post 2 doses of IV Lopressor heart rate 90s to low 100s. Clinically less symptomatic with her chest symptoms. She feels back to her normal self. Laboratory studies with neutropenia white count of 2.8 hemoglobin 9.4 platelets of 19. From recent labs last white count 1.6, platelets were 13. This is improved labs from previous. Patient with no bleeding complaints. Clinically improving symptoms, we discussed with her oncology team. 2015: Discussed with Makenzie Richardson, oncology team who knows the patient well. No further work-up from an oncology standpoint. Renal sufficiency, blood work scheduled be redrawn tomorrow. She will follow-up with them as an outpatient. Improved symptoms for A-fib now rate controlled. Heart rate in the 90s. She continue her metoprolol. She will follow-up as an outpatient with return precautions. All questions were answered. Re-evaluation: stable Disposition discussed with patient/family/significant other: Patient significant other Case discussed with consulting clinician: Oncology This note was generated with Masterbranchation software. It may contain incorrect words, spelling, and punctuation that were not noted in checking the note before signing. Lab Data Attestation: I reviewed the patient's lab results. Labs: Laboratory Results - last 24 hr 09/20/22 09/20/22 18:14 19:21 WBC 2.8 L RBC 2.98 L Hgb 9.4 L Hct 28.0 L MCV 94.0 MCH 31.5 MCHC 33.6 RDW Std Deviation 73.3 H RDW Coeff of Herman 23.5 H Plt Count 19 L* Immature Gran % (Auto) 0.700 Neut % (Auto) 26.0 L Lymph % (Auto) 58.8 H [place] % (Auto) 13.4 H Eos % (Auto) 0.7 Baso % (Auto) 0.4 Absolute Neuts (auto) 0.7 L Absolute Lymphs (auto) 1.67 Nucleated RBC % 1.1 Differential Comment SCANNED Diff Path Review May foll Platelet Estimate MKD DEC Polychromasia RARE Anisocytosis 1+ PT 14.2 INR 1.1 APTT 31.0 Sodium 139 Potassium 3.7 Chloride 109 H Carbon Dioxide 24.0 Anion Gap 6 BUN 11 Creatinine 0.94 Estim Creat Clear Calc 53.62 Est GFR (MDRD) Af Amer 76 Est GFR (MDRD) Non-Af 63 BUN/Creatinine Ratio 11.7 Glucose 112 H Lactic Acid 2.0 Calcium 9.1 Total Bilirubin 1.60 H AST 88 H ALT 85 H Alkaline Phosphatase 198 H Total Protein 6.9 Albumin 3.4 Globulin 3.5 Albumin/Globulin Ratio 1.0 Urine Color Yellow Urine Clarity Clear Urine pH 5.0 Ur Specific [place] 1.015 Urine Protein 15 H Urine Glucose (UA) Normal Urine Ketones Negative Urine Occult Blood 25 H Urine Nitrite Negative Urine Bilirubin Negative Urine Urobilinogen 4 H Ur Leukocyte Esterase 25 H Urine RBC 0 SEEN Urine WBC 0-5 SEEN Ur Squamous Epith Cells 0 SEEN Urine Bacteria 1+ Urine Mucus 0 SEEN Radiography Diagnostic Testing: Clinical Impression(s) from Imaging Studies Chest X-Ray 09/20/22 18:35 IMPRESSION: There are no acute findings. Electronically Signed: Adrian Licea MD at 18:59 EDT , Discharge Plan Triage Chief Complaint: Fever ED Provider: Kal Burrell Dx/Rx/DC Orders Clinical Impression: Neutropenia, Thrombocytopenia, Anemia, AML (acute myeloid leukemia), Atrial fibrillation with controlled ventricular rate, Acute renal insufficiency Instructions: Myranda Dc, ED Renal Insufficiency Prescriptions: No Action pravastatin 40 mg tablet 40 mg PO QHS 90 Days Qty: 90 loratadine [Allergy Relief (loratadine)] 10 mg tablet 10 mg PO DAILY PRN (Reason: Allergies) acyclovir 800 mg tablet 800 mg PO DAILY Patient Comments: TAKE 1 TABLET BY MOUTH TWICE DAILY posaconazole 100 mg tablet,delayed release (DR/EC) 300 mg PO DAILY Venclexta 100 mg tablet 1 tablet PO QHS PRN (Reason: not taking right now) ursodiol 300 mg capsule 300 mg PO BID multivitamin Tablet 1 tab PO DAILY allopurinol 300 mg tablet 600 mg PO DAILY tramadol 50 mg tablet 50 mg PO Q8H PRN (Reason: Pain) amiodarone 200 mg tablet 200 mg PO DAILY Qty: 90 3RF metoprolol succinate 25 mg tablet extended release 24 hr 25 mg PO BID Qty: 180 3RF loperamide 2 mg capsule 2 mg PO Q6H PRN ondansetron 8 mg tablet,disintegrating 8 mg PO Q8H PRN (Reason: nausea and vomiting) Qty: 30 2RF amoxicillin-pot clavulanate [Augmentin] 500-125 mg tablet 1 tab PO BID Qty: 14 0RF potassium chloride 20 mEq tablet extended release 20 meq PO BID Qty: 60 1RF lisinopril 30 mg tablet 30 mg PO DAILY omeprazole 40 mg capsule,delayed release(DR/EC) 40 mg PO QHS Qty: 90 1RF (DME) Disability Placard See Rx Instructions .Route .MEDSUPPLY Qty: 1 0RF Rx Instructions: . colchicine 0.6 mg Capsule 0.6 mg PO DAILY Primary Care Provider: Jairo Romero Referrals: Jairo Romero MD [Primary Care Provider] - Makenzie Richardson HOUSEKEEPER, HOUSEKEEPER-C [Med Staff - Adv Practice Prof] - 1 Day Activity Restrictions/Additional Instructions: White count 2.8, hemoglobin 9.4 platelets 19, this is improved from 3 days ago. Cr 1.6. Given IV fluids. Continue oral fluids at home. Your blood work will be rechecked tomorrow discussed with your oncology team in the ED. Your A-fib is now controlled. Continue your metoprolol 25 mg twice a day. Return if worsening symptoms. Disposition Disposition: Home, Self Care
[2022-09-20] MEDS: Metoprolol Tartrate 5 MG/5 ML Vial IV ×2 (18:22→18:50)
[2022-09-20 18:24] LABS: Absolute Lymphocyte Count 1.67 X10^3/uL (0.83-4.51); Absolute Neutrophil Count 0.7 X10^3/uL (2.0-7.7); Basophil# 0.01 X10^3/uL; Basophil% 0.4 % (0-1); Eosinophil# 0.02 X10^3/uL; Eosinophils% 0.7 % (0-5); Hemoglobin 9.4 g/dL (12.0-15.0); Lymphocyte # 1.67 X10^3/ul (0.83-4.51); Lymphocyte % 58.8 % (19-41); Mean Corp Hgb Conc 33.6 g/dL (32-36); Mean Corpuscular Hgb 31.5 pg (27.0-32.0); Monocyte# 0.38 X10^3/uL; Monocyte% 13.4 % (0-10); NRBC Flagged by Analyzer 1.1 % (0-5); Neutrophil # 0.74 X10^3/uL (2.7-7.7); POSITIVE COUNT YES; POSITIVE DIFFERENTIAL YES; POSITIVE MORPHOLOGY YES; RBC Distribution Width CV 23.5 % (11.6-14.6); RBC Distribution Width SD 73.3 fl (35.1-43.9); Red Blood Count 2.98 M/mm3 (4.2-5.4); White Blood Count 2.8 K/mm3 (4.4-11.0)
[2022-09-20 18:27] LABS: Differential Indicated SCAN CRITERIA MET; Platelet Count 19 K/mm3 (150-450)
[2022-09-20] MEDS: 0.9% Normal Saline 1,000 ML 250 ML IV (18:28)
[2022-09-20 18:31] LABS: International Normalized Ratio 1.1; Prothrombin Time (Protime)PT. 14.2 SECONDS (11.7-14.9)
--- NOTE | 2022-09-20 18:35 | RAD_ITS ---
STUDY: XR Chest 2 Views 09/20/2022 6:32 PM REASON FOR EXAM: Female, 66 years old. fever COMPARISON: 03/19/22 TECHNIQUE: XR Chest 2 Views FINDINGS: There is no demonstrated pleural abnormality. There is a right PICC line in place. The tip is in the superior vena cava. Enlarged heart size. Normal mediastinum. Normal lonny. Prominent appearing increased interstitial lung markings. Normal visualized pulmonary arteries. There is atherosclerotic calcification of the aortic arch with tortuosity. There are diffuse degenerative changes of the visualized thoracic spine. There is degenerative osteoarthritis of the bilateral shoulders. There is no demonstrated abnormality of the visualized soft tissue structures of the upper abdomen. RAD/Chest PA and Lateral IMPRESSION: There are no acute findings. Electronically Signed: Adrian Licea MD at 18:59 EDT ,
[2022-09-20 18:46] LABS: AST(SGOT) 88 U/L (15-37); Alanine Aminotransfer ALT/SGPT 85 U/L (13-56); Albumin, Serum 3.4 g/dL (3.2-5.0); Alkaline Phosphatase 198 U/L (45-117); Anion Gap 6 (5-15); BUN 11 mg/dL (7-18); BUN/Creat Ratio 11.7 RATIO (10-20); Calcium,Total 9.1 mg/dL (8.5-10.1); Chloride 109 mmol/L (98-107); Creatinine, Serum 0.94 mg/dL (0.55-1.02); EST Glomerular Filtration Rate 63 mL/min (>60); Est Glom Filt Rate - Afr Amer 76 mL/min (>60); Estimated Creatinine Clearance 53.62 ml/min; Globulin 3.5 g/dL (2.2-4.2); Glucose 112 mg/dL (74-106); Potassium 3.7 mmol/L (3.5-5.1); Protein, Total 6.9 g/dL (6.4-8.2); Sodium Level 139 mmol/L (136-145)
[2022-09-20 19:10] LABS: Anisocytosis 1+; Differential Comment SCANNED; Platelet Estimate MKD DEC (ADEQ); Polychromasia RARE
[2022-09-20 19:22] LABS: Mucous, Urine 0 SEEN /hpf (<or=2+); Red Blood Cells-Urine 0 SEEN /hpf (0-5); Squamous Epithelial Cells - UA 0 SEEN /hpf (5-10)
[2022-09-20 19:31] LABS: Color, Urine Yellow (Yellow); Glucose, Dipstick Normal (Normal); Ketone-Dipstick Negative (Negative); Leukocyte Esterase-Dipstick 25 /ul (Negative); Nitrite-Dipstick Negative (Negative); Occult Blood-Urine 25 /ul (Negative); Protein-Dipstick 15 mg/dl (Negative); Specific Gravity, Urine 1.015 (1.002-1.030); Urine Bilirubin Dipstick Negative (Negative); Urine Clarity Clear (Clear); Urine Urobilinogen 4 mg/dl (Normal)
[2022-09-20 19:39] LABS: Bacteria 1+ /hpf (None Seen); White Blood Cells 0-5 SEEN /hpf (0-5)
[2022-09-20 22:19] LABS: Reflex Lactate? Y
[2022-09-21 13:55] LABS: Pathologist Review Reviewed
== END 2022-09-20 21:00 | disposition home or self-care (01) ==
PROVIDERS: Emergency Provider Emergency Medicine; PCP Family Medicine; Visit Provider Emergency Medicine
DX: D70.9 Neutropenia, unspecified (principal); C92.00 Acute myeloblastic leukemia, not having achieved remission; D61.818 Other pancytopenia; I48.0 Paroxysmal atrial fibrillation; N28.9 Disorder of kidney and ureter, unspecified; I10 Essential (primary) hypertension; Z79.899 Other long term (current) drug therapy; Z87.891 Personal history of nicotine dependence
CPT/HCPCS: 36592; 71046; 80053; 81001; 83605; 85025; 85610; 85730; 87040; 87086; 87428; 93005; 96374; 99283; J7030; A4216; J2405

== ENCOUNTER → 2023-09-21 | Outpatient (CLI) | payer MEDICARE, BC, SELFPAY ==
[2023-09-21 10:01] LABS: Absolute Lymphocyte Count 1.21 X10^3/uL (0.83-4.51); Absolute Neutrophil Count 2.4 X10^3/uL (2.0-7.7); Basophil# 0.03 X10^3/uL; Basophil% 0.7 % (0-1); Eosinophil# 0.22 X10^3/uL; Eosinophils% 4.8 % (0-5); Hematocrit 33.4 % (37-47); Hemoglobin 10.9 g/dL (12.0-15.0); Lymphocyte # 1.21 X10^3/ul (0.83-4.51); Lymphocyte % 26.6 % (19-41); Mean Corp Hgb Conc 32.6 g/dL (32-36); Mean Corpuscular Hgb 33.5 pg (27.0-32.0); Mean Corpuscular Volume 102.8 fL (81-99); Mean Platelet Vol. 9.9 fl (6.2-12.0); Monocyte# 0.71 X10^3/uL; Monocyte% 15.6 % (0-10); NRBC Flagged by Analyzer 0 % (0-5); Neutrophil # 2.36 X10^3/uL (2.7-7.7); Neutrophil % 51.9 % (47-70); Platelet Count 118 K/mm3 (150-450); RBC Distribution Width SD 55.8 fl (35.1-43.9); Red Blood Count 3.25 M/mm3 (4.2-5.4); White Blood Count 4.6 K/mm3 (4.4-11.0)
[2023-09-21 10:59] LABS: AST(SGOT) 29 U/L (15-37); Alanine Aminotransfer ALT/SGPT 32 U/L (13-56); Albumin, Serum 3.7 g/dL (3.2-5.0); Alkaline Phosphatase 73 U/L (45-117); Anion Gap 4 (5-15); BUN 20 mg/dL (7-18); BUN/Creat Ratio 13.8 RATIO (10-20); Calcium,Total 9.2 mg/dL (8.5-10.1); Chloride 112 mmol/L (98-107); Creatinine, Serum 1.45 mg/dL (0.55-1.02); EST Glomerular Filtration Rate 38 mL/min (>60); Est Glom Filt Rate - Afr Amer 46 mL/min (>60); Globulin 3.1 g/dL (2.2-4.2); Glucose 74 mg/dL (74-106); Potassium 4.1 mmol/L (3.5-5.1); Protein, Total 6.8 g/dL (6.4-8.2); Sodium Level 142 mmol/L (136-145)
== END | disposition home or self-care (01) ==
LOC: PAVLAB 09:33
PROVIDERS: PCP Family Medicine
DX: Z79.899 Other long term (current) drug therapy (principal); D89.813 Graft-versus-host disease, unspecified
CPT/HCPCS: 36415; 80048; 80076; 85025

== ENCOUNTER 2023-10-12 10:55 | Outpatient (RCR) | payer MEDICARE, BC, SELFPAY ==
[2023-10-12 11:58] LABS: Absolute Lymphocyte Count 1.17 X10^3/uL (0.83-4.51); Absolute Neutrophil Count 2.9 X10^3/uL (2.0-7.7); Basophil# 0.02 X10^3/uL; Basophil% 0.4 % (0-1); Eosinophil# 0.26 X10^3/uL; Eosinophils% 5.4 % (0-5); Hematocrit 31.8 % (37-47); Hemoglobin 10.4 g/dL (12.0-15.0); Lymphocyte # 1.17 X10^3/ul (0.83-4.51); Lymphocyte % 24.2 % (19-41); Mean Corp Hgb Conc 32.7 g/dL (32-36); Mean Corpuscular Hgb 33.2 pg (27.0-32.0); Mean Corpuscular Volume 101.6 fL (81-99); Mean Platelet Vol. 10.6 fl (6.2-12.0); Monocyte# 0.51 X10^3/uL; Monocyte% 10.6 % (0-10); NRBC Flagged by Analyzer 0 % (0-5); Neutrophil # 2.86 X10^3/uL (2.7-7.7); Neutrophil % 59.2 % (47-70); POSITIVE COUNT YES; Platelet Count 98 K/mm3 (150-450); RBC Distribution Width CV 15.1 % (11.6-14.6); Red Blood Count 3.13 M/mm3 (4.2-5.4); White Blood Count 4.8 K/mm3 (4.4-11.0)
[2023-10-12 11:59] LABS: Differential Indicated SCAN CRITERIA MET
[2023-10-12 12:29] LABS: AST(SGOT) 29 U/L (15-37); Alanine Aminotransfer ALT/SGPT 38 U/L (13-56); Albumin, Serum 3.3 g/dL (3.2-5.0); Alkaline Phosphatase 62 U/L (45-117); Anion Gap 5 (5-15); BUN 19 mg/dL (7-18); Bilirubin, Direct 0.15 mg/dL (0.00-0.30); Calcium,Total 8.6 mg/dL (8.5-10.1); Chloride 110 mmol/L (98-107); Creatinine, Serum 1.27 mg/dL (0.55-1.02); EST Glomerular Filtration Rate 44 mL/min (>60); Est Glom Filt Rate - Afr Amer 54 mL/min (>60); Globulin 2.8 g/dL (2.2-4.2); Glucose 88 mg/dL (74-106); Potassium 3.7 mmol/L (3.5-5.1); Protein, Total 6.1 g/dL (6.4-8.2); Sodium Level 141 mmol/L (136-145)
[2023-10-12 12:34] LABS: Differential Comment SCANNED
== END 2023-10-13 23:59 ==
LOC: PAVLAB 10:55
PROVIDERS: PCP Family Medicine
DX: D89.813 Graft-versus-host disease, unspecified (principal); Z94.81 Bone marrow transplant status
CPT/HCPCS: 36415; 80048; 80076; 85025

== ENCOUNTER 2023-11-09 08:52 | Outpatient (RCR) | payer MEDICARE, BC, SELFPAY ==
[2023-10-26 09:37] LABS: Absolute Lymphocyte Count 1.34 X10^3/uL (0.83-4.51); Absolute Neutrophil Count 2.4 X10^3/uL (2.0-7.7); Basophil# 0.03 X10^3/uL; Basophil% 0.7 % (0-1); Eosinophils% 2.3 % (0-5); Hematocrit 34.6 % (37-47); Hemoglobin 11.2 g/dL (12.0-15.0); Lymphocyte # 1.34 X10^3/ul (0.83-4.51); Lymphocyte % 30.7 % (19-41); Mean Corp Hgb Conc 32.4 g/dL (32-36); Mean Corpuscular Hgb 33.2 pg (27.0-32.0); Mean Corpuscular Volume 102.7 fL (81-99); Mean Platelet Vol. 10.9 fl (6.2-12.0); Monocyte# 0.49 X10^3/uL; Monocyte% 11.2 % (0-10); NRBC Flagged by Analyzer 0 % (0-5); Neutrophil # 2.38 X10^3/uL (2.7-7.7); Neutrophil % 54.6 % (47-70); Platelet Count 136 K/mm3 (150-450); RBC Distribution Width CV 15.2 % (11.6-14.6); RBC Distribution Width SD 56.5 fl (35.1-43.9); Red Blood Count 3.37 M/mm3 (4.2-5.4); White Blood Count 4.4 K/mm3 (4.4-11.0)
[2023-10-26 10:26] LABS: AST(SGOT) 32 U/L (15-37); Alanine Aminotransfer ALT/SGPT 52 U/L (13-56); Albumin, Serum 3.7 g/dL (3.2-5.0); Alkaline Phosphatase 66 U/L (45-117); Anion Gap 4 (5-15); BUN 23 mg/dL (7-18); Bilirubin, Direct 0.16 mg/dL (0.00-0.30); Chloride 112 mmol/L (98-107); Creatinine, Serum 1.28 mg/dL (0.55-1.02); EST Glomerular Filtration Rate 44 mL/min (>60); Est Glom Filt Rate - Afr Amer 53 mL/min (>60); Glucose 88 mg/dL (74-106); Potassium 4.4 mmol/L (3.5-5.1); Protein, Total 6.7 g/dL (6.4-8.2); Sodium Level 141 mmol/L (136-145)
[2023-11-09 09:14] LABS: Absolute Lymphocyte Count 1.56 X10^3/uL (0.83-4.51); Absolute Neutrophil Count 2.4 X10^3/uL (2.0-7.7); Basophil# 0.02 X10^3/uL; Basophil% 0.4 % (0-1); Eosinophil# 0.37 X10^3/uL; Eosinophils% 7.3 % (0-5); Hematocrit 34.4 % (37-47); Hemoglobin 11.2 g/dL (12.0-15.0); Lymphocyte # 1.56 X10^3/ul (0.83-4.51); Lymphocyte % 30.7 % (19-41); Mean Corp Hgb Conc 32.6 g/dL (32-36); Mean Corpuscular Hgb 33.3 pg (27.0-32.0); Mean Corpuscular Volume 102.4 fL (81-99); Mean Platelet Vol. 10.5 fl (6.2-12.0); Monocyte# 0.69 X10^3/uL; Monocyte% 13.6 % (0-10); NRBC Flagged by Analyzer 0 % (0-5); Neutrophil # 2.43 X10^3/uL (2.7-7.7); Neutrophil % 47.8 % (47-70); Platelet Count 111 K/mm3 (150-450); RBC Distribution Width CV 15.2 % (11.6-14.6); RBC Distribution Width SD 56.5 fl (35.1-43.9); Red Blood Count 3.36 M/mm3 (4.2-5.4); White Blood Count 5.1 K/mm3 (4.4-11.0)
[2023-11-09 11:34] LABS: AST(SGOT) 36 U/L (15-37); Alanine Aminotransfer ALT/SGPT 52 U/L (13-56); Albumin, Serum 3.6 g/dL (3.2-5.0); Alkaline Phosphatase 76 U/L (45-117); Anion Gap 5 (5-15); BUN 21 mg/dL (7-18); BUN/Creat Ratio 15.4 RATIO (10-20); Bilirubin, Direct 0.24 mg/dL (0.00-0.30); Calcium,Total 8.9 mg/dL (8.5-10.1); Chloride 109 mmol/L (98-107); Creatinine, Serum 1.36 mg/dL (0.55-1.02); EST Glomerular Filtration Rate 41 mL/min (>60); Est Glom Filt Rate - Afr Amer 49 mL/min (>60); Globulin 3.1 g/dL (2.2-4.2); Glucose 64 mg/dL (74-106); Potassium 3.7 mmol/L (3.5-5.1); Protein, Total 6.7 g/dL (6.4-8.2); Sodium Level 141 mmol/L (136-145)
== END 2023-11-13 23:59 ==
LOC: PAVLAB 08:52
DX: Z94.81 Bone marrow transplant status (principal)
CPT/HCPCS: 36415; 80048; 80076; 85025

== ENCOUNTER 2024-01-05 12:44 | Outpatient (RCR) | payer MEDICARE, BC, SELFPAY ==
[2024-01-05 13:16] LABS: Absolute Lymphocyte Count 3.43 X10^3/uL (0.83-4.51); Basophil# 0.02 X10^3/uL; Basophil% 0.3 % (0-1); Eosinophils% 4.6 % (0-5); Hematocrit 35.1 % (37-47); Hemoglobin 11.6 g/dL (12.0-15.0); Lymphocyte # 3.43 X10^3/ul (0.83-4.51); Lymphocyte % 52.9 % (19-41); Mean Corpuscular Volume 102.9 fL (81-99); Monocyte% 10.8 % (0-10); NRBC Flagged by Analyzer 0 % (0-5); Neutrophil # 2.02 X10^3/uL (2.7-7.7); Neutrophil % 31.2 % (47-70); Platelet Count 113 K/mm3 (150-450); RBC Distribution Width CV 15.6 % (11.6-14.6); RBC Distribution Width SD 58.4 fl (35.1-43.9); Red Blood Count 3.41 M/mm3 (4.2-5.4); White Blood Count 6.5 K/mm3 (4.4-11.0)
[2024-01-05 13:32] LABS: AST(SGOT) 29 U/L (15-37); Alanine Aminotransfer ALT/SGPT 38 U/L (13-56); Albumin, Serum 3.5 g/dL (3.2-5.0); Alkaline Phosphatase 71 U/L (45-117); Anion Gap 4 (5-15); BUN 22 mg/dL (7-18); BUN/Creat Ratio 17.6 RATIO (10-20); Bilirubin, Direct 0.23 mg/dL (0.00-0.30); Calcium,Total 8.9 mg/dL (8.5-10.1); Chloride 111 mmol/L (98-107); Creatinine, Serum 1.25 mg/dL (0.55-1.02); EST Glomerular Filtration Rate 45 mL/min (>60); Est Glom Filt Rate - Afr Amer 55 mL/min (>60); Glucose 90 mg/dL (74-106); Potassium 3.6 mmol/L (3.5-5.1); Protein, Total 6.5 g/dL (6.4-8.2); Sodium Level 140 mmol/L (136-145)
== END 2024-01-13 23:59 ==
LOC: PAVLAB 12:44
DX: D89.813 Graft-versus-host disease, unspecified (principal); Z94.81 Bone marrow transplant status
CPT/HCPCS: 36415; 80048; 80076; 85025

== ENCOUNTER 2024-02-01 09:06 | Outpatient (RCR) | payer MEDICARE, BC, SELFPAY ==
[2024-02-01 09:30] LABS: Absolute Lymphocyte Count 2.69 X10^3/uL (0.83-4.51); Absolute Neutrophil Count 2.6 X10^3/uL (2.0-7.7); Basophil# 0.02 X10^3/uL; Basophil% 0.3 % (0-1); Eosinophil# 0.27 X10^3/uL; Eosinophils% 4.3 % (0-5); Hematocrit 36.7 % (37-47); Hemoglobin 12.2 g/dL (12.0-15.0); Lymphocyte # 2.69 X10^3/ul (0.83-4.51); Lymphocyte % 43.2 % (19-41); Mean Corp Hgb Conc 33.2 g/dL (32-36); Mean Corpuscular Hgb 34.2 pg (27.0-32.0); Mean Corpuscular Volume 102.8 fL (81-99); Mean Platelet Vol. 10.1 fl (6.2-12.0); Monocyte# 0.59 X10^3/uL; Monocyte% 9.5 % (0-10); NRBC Flagged by Analyzer 0 % (0-5); Neutrophil # 2.63 X10^3/uL (2.7-7.7); Neutrophil % 42.4 % (47-70); Platelet Count 106 K/mm3 (150-450); RBC Distribution Width SD 56.6 fl (35.1-43.9); Red Blood Count 3.57 M/mm3 (4.2-5.4); White Blood Count 6.2 K/mm3 (4.4-11.0)
[2024-02-01 09:45] LABS: AST(SGOT) 23 U/L (15-37); Alanine Aminotransfer ALT/SGPT 42 U/L (13-56); Albumin, Serum 3.6 g/dL (3.2-5.0); Alkaline Phosphatase 69 U/L (45-117); Anion Gap 3 (5-15); BUN 25 mg/dL (7-18); BUN/Creat Ratio 18.5 RATIO (10-20); Bilirubin, Direct 0.16 mg/dL (0.00-0.30); Calcium,Total 8.9 mg/dL (8.5-10.1); Chloride 113 mmol/L (98-107); Creatinine, Serum 1.35 mg/dL (0.55-1.02); EST Glomerular Filtration Rate 41 mL/min (>60); Est Glom Filt Rate - Afr Amer 50 mL/min (>60); Globulin 3.2 g/dL (2.2-4.2); Glucose 71 mg/dL (74-106); Protein, Total 6.8 g/dL (6.4-8.2); Sodium Level 140 mmol/L (136-145)
== END 2024-02-12 23:59 ==
LOC: PAVLAB 09:06
DX: Z94.81 Bone marrow transplant status (principal); D89.813 Graft-versus-host disease, unspecified
CPT/HCPCS: 36415; 80048; 80076; 85025

== ENCOUNTER 2024-04-25 14:02 | Outpatient (RCR) | payer MEDICARE, BC, SELFPAY ==
[2024-04-25 14:37] LABS: Absolute Lymphocyte Count 2.76 X10^3/uL (0.83-4.51); Absolute Neutrophil Count 3.1 X10^3/uL (2.0-7.7); Basophil# 0.02 X10^3/uL; Basophil% 0.3 % (0-1); Eosinophil# 0.15 X10^3/uL; Eosinophils% 2.2 % (0-5); Hematocrit 36.1 % (37-47); Hemoglobin 12.3 g/dL (12.0-15.0); Lymphocyte # 2.76 X10^3/ul (0.83-4.51); Lymphocyte % 41.3 % (19-41); Mean Corp Hgb Conc 34.1 g/dL (32-36); Mean Corpuscular Hgb 33.8 pg (27.0-32.0); Mean Corpuscular Volume 99.2 fL (81-99); Mean Platelet Vol. 10.8 fl (6.2-12.0); Monocyte# 0.69 X10^3/uL; Monocyte% 10.3 % (0-10); NRBC Flagged by Analyzer 0 % (0-5); Neutrophil # 3.05 X10^3/uL (2.7-7.7); Neutrophil % 45.6 % (47-70); Platelet Count 149 K/mm3 (150-450); RBC Distribution Width CV 14.4 % (11.6-14.6); RBC Distribution Width SD 52.9 fl (35.1-43.9); Red Blood Count 3.64 M/mm3 (4.2-5.4); White Blood Count 6.7 K/mm3 (4.4-11.0)
[2024-04-25 14:54] LABS: AST(SGOT) 29 U/L (15-37); Alanine Aminotransfer ALT/SGPT 42 U/L (13-56); Albumin, Serum 3.6 g/dL (3.2-5.0); Alkaline Phosphatase 74 U/L (45-117); Anion Gap 4 (5-15); BUN 18 mg/dL (7-18); BUN/Creat Ratio 14.1 RATIO (10-20); Bilirubin, Direct 0.18 mg/dL (0.00-0.30); Calcium,Total 8.9 mg/dL (8.5-10.1); Chloride 110 mmol/L (98-107); Creatinine, Serum 1.28 mg/dL (0.55-1.02); EST Glomerular Filtration Rate 44 mL/min (>60); Est Glom Filt Rate - Afr Amer 53 mL/min (>60); Globulin 3.4 g/dL (2.2-4.2); Glucose 78 mg/dL (74-106); Potassium 3.8 mmol/L (3.5-5.1); Sodium Level 142 mmol/L (136-145)
== END 2024-05-12 23:59 ==
LOC: PAVLAB 14:02
DX: Z94.81 Bone marrow transplant status
CPT/HCPCS: 36415; 80048; 80076; 85025

== ENCOUNTER 2024-08-03 11:02 | Outpatient (RCR) | payer MEDICARE, BC, SELFPAY ==
[2024-08-03 11:30] LABS: Absolute Lymphocyte Count 2.78 X10^3/uL (0.83-4.51); Absolute Neutrophil Count 3.5 X10^3/uL (2.0-7.7); Basophil# 0.03 X10^3/uL; Basophil% 0.4 % (0-1); Eosinophil# 0.26 X10^3/uL; Eosinophils% 3.6 % (0-5); Hemoglobin 13.1 g/dL (12.0-15.0); Lymphocyte # 2.78 X10^3/ul (0.83-4.51); Lymphocyte % 38.9 % (19-41); Mean Corp Hgb Conc 33.6 g/dL (32-36); Mean Corpuscular Hgb 33.4 pg (27.0-32.0); Mean Corpuscular Volume 99.5 fL (81-99); Monocyte# 0.51 X10^3/uL; Monocyte% 7.1 % (0-10); NRBC Flagged by Analyzer 0 % (0-5); Neutrophil # 3.54 X10^3/uL (2.7-7.7); Neutrophil % 49.6 % (47-70); Platelet Count 136 K/mm3 (150-450); RBC Distribution Width CV 14.6 % (11.6-14.6); RBC Distribution Width SD 53.2 fl (35.1-43.9); Red Blood Count 3.92 M/mm3 (4.2-5.4); White Blood Count 7.2 K/mm3 (4.4-11.0)
[2024-08-03 11:59] LABS: AST(SGOT) 32 U/L (<=31); Alanine Aminotransfer ALT/SGPT 31 U/L (<=34); Albumin, Serum 4.2 g/dL (3.4-4.8); Alkaline Phosphatase 65 U/L (35-104); Anion Gap 9 (5-15); BUN 25 mg/dL (4-19); BUN/Creat Ratio 17.3 RATIO (10-20); Bilirubin, Direct 0.21 mg/dL (0.00-0.30); Calcium,Total 9.7 mg/dL (7.6-11.0); Carbon Dioxide 22.6 mmol/L (21.0-32.0); Chloride 109 mmol/L (98-108); Creatinine, Serum 1.42 mg/dL (0.70-1.20); EST Glomerular Filtration Rate 40 (>60); Globulin 2.6 g/dL (2.2-4.2); Glucose 95 mg/dL (70-99); Protein, Total 6.8 g/dL (5.9-8.4); Sodium Level 141 mmol/L (133-145); Total Bilirubin 0.45 mg/dL (0.00-1.30)
[2024-08-03 19:27] LABS: Xtra Tube EP Lab EXTRA TUBE
== END 2024-08-12 23:59 ==
LOC: PAVLAB 11:02
DX: D89.813 Graft-versus-host disease, unspecified (principal); Z94.81 Bone marrow transplant status
CPT/HCPCS: 36415; 80048; 80076; 85025

== ENCOUNTER 2024-09-22 09:35 | Outpatient (RCR) | payer MEDICARE, BC, SELFPAY ==
[2024-09-22 10:22] LABS: Hematocrit 37.7 % (37-47); Hemoglobin 12.4 g/dL (12.0-15.0); Immature Granulocytes Count 0.020 X10^3/uL (0.0-0.0); Mean Corp Hgb Conc 32.9 g/dL (32-36); Mean Corpuscular Volume 100.3 fL (81-99); Mean Platelet Vol. 11.2 fl (6.2-12.0); NRBC Flagged by Analyzer 0 % (0-5); Platelet Count 126 K/mm3 (150-450); RBC Distribution Width CV 14.4 % (11.6-14.6); RBC Distribution Width SD 53.1 fl (35.1-43.9); Red Blood Count 3.76 M/mm3 (4.2-5.4); White Blood Count 6.6 K/mm3 (4.4-11.0)
[2024-09-22 11:29] LABS: AST(SGOT) 30 U/L (<=31); Alanine Aminotransfer ALT/SGPT 27 U/L (<=34); Albumin, Serum 4.0 g/dL (3.4-4.8); Alkaline Phosphatase 56 U/L (35-104); Anion Gap 8 (5-15); BUN 16 mg/dL (4-19); BUN/Creat Ratio 12.1 RATIO (10-20); Bilirubin, Direct 0.20 mg/dL (0.00-0.30); Calcium,Total 8.9 mg/dL (7.6-11.0); Carbon Dioxide 23.5 mmol/L (21.0-32.0); Chloride 107 mmol/L (98-108); Globulin 2.5 g/dL (2.2-4.2); Glucose 93 mg/dL (70-99); Potassium 4.9 mmol/L (3.3-5.1)
== END 2024-10-12 21:03 | disposition home or self-care (01) ==
LOC: LAB 09:35
DX: Z94.81 Bone marrow transplant status (principal); D89.813 Graft-versus-host disease, unspecified
CPT/HCPCS: 36415; 80048; 80076; 85025

== ENCOUNTER 2025-01-31 09:39 | Outpatient (RCR) | payer MEDICARE, BC, SELFPAY ==
[2025-01-31 09:59] LABS: Hematocrit 40.1 % (37-47); Hemoglobin 13.2 g/dL (12.0-15.0); Immature Granulocytes Count 0.010 X10^3/uL (0.0-0.0); Mean Corp Hgb Conc 32.9 g/dL (32-36); Mean Corpuscular Volume 99.3 fL (81-99); Mean Platelet Vol. 10.3 fl (6.2-12.0); NRBC Flagged by Analyzer 0 % (0-5); Platelet Count 174 K/mm3 (150-450); RBC Distribution Width CV 14.6 % (11.6-14.6); RBC Distribution Width SD 53.4 fl (35.1-43.9); Red Blood Count 4.04 M/mm3 (4.2-5.4); White Blood Count 7.0 K/mm3 (4.4-11.0)
[2025-01-31 10:21] LABS: AST(SGOT) 27 U/L (<=31); Alanine Aminotransfer ALT/SGPT 29 U/L (<=34); Albumin, Serum 4.0 g/dL (3.4-4.8); Alkaline Phosphatase 56 U/L (35-104); Anion Gap 9 (5-15); BUN 16 mg/dL (4-19); BUN/Creat Ratio 12.2 RATIO (10-20); Bilirubin, Direct 0.24 mg/dL (0.00-0.30); Calcium,Total 9.5 mg/dL (7.6-11.0); Carbon Dioxide 23.7 mmol/L (21.0-32.0); Chloride 109 mmol/L (98-108); Globulin 3.1 g/dL (2.2-4.2); Glucose 94 mg/dL (70-99); Potassium 4.1 mmol/L (3.3-5.1)
[2025-01-31 17:55] LABS: Xtra Tube EP Lab EXTRA TUBE
== END 2025-02-11 23:59 ==
LOC: PAVLAB 09:39
DX: Z94.81 Bone marrow transplant status (principal)
CPT/HCPCS: 36415; 80048; 80076; 85025